=== PATIENT | female | born 1980 | race Asian ===

== ENCOUNTER 2022-02-11 13:54 | Outpatient (REF) | payer OTHER, SELFPAY | END 2022-02-11 13:55 | disposition home or self-care (01) | LOC: HO.US 13:54 | PROVIDERS: Visit Provider Family Medicine | DX: Z13.89 Encounter for screening for other disorder (principal) ==

== ENCOUNTER 2022-02-12 14:06 | Outpatient (REF) | payer OTHER, SELFPAY ==
--- NOTE | ~2022-02-12 | US_ITS ---
EXAMINATION: US PELVIS CLINICAL INFORMATION: Abnormal vaginal bleeding. COMPARISON: None TECHNIQUE: Ultrasound of the pelvis is performed using both transabdominal and transvaginal transducers along with Doppler. Transvaginal imaging is performed due to inadequate visualization transabdominally. FINDINGS: The uterus is anteverted and measures 11 x 5.4 x 5.9 cm in dimension. There are several small hypoechoic lesions in the intramural posterior and left uterine body questionable for small fibroids. Largest measure 1.1 x 0.5 x 1 cm in the posterior uterine body and 1.3 x 0.7 x 0.9 cm in the left uterine body. Endometrial thickness is slightly thickened measuring 1.8 cm. There are nabothian cysts in the cervix. The right ovary is normal-appearing and measures 3.5 x 2 x 2.7 cm. The left ovary measures 2.8 x 1.9 x 1.8 cm. There are several small 2-3 mm punctate echogenic foci in the left ovary. There is a 3.6 x 2.2 x 2 cm minimally complex cyst posterior to the left ovary with some internal echoes. Appearance is questionable for hydrosalpinx. There is a small amount of fluid in the pelvis. US/US pelvic and transvaginal IMPRESSION: Small uterine lesions questionable for fibroids, largest measuring 1 cm. Slightly thickened endometrium measuring 1.8 cm. 3.6 x 2.2 x 2 cm complex left adnexal cyst questionable for hydrosalpinx. Short-term followup exam in several months recommended.
== END 2022-02-12 14:07 | disposition home or self-care (01) ==
LOC: HO.US 14:06
PROVIDERS: PCP Family Medicine; Visit Provider Family Medicine
DX: N93.9 Abnormal uterine and vaginal bleeding, unspecified (principal)
CPT/HCPCS: 76830; 76856

== ENCOUNTER 2022-03-17 19:05 | Emergency (ER) | payer OTHER, SELFPAY ==
--- NOTE | ~2022-03-17 | XR_ITS ---
EXAMINATION: XR KNEE, RIGHT CLINICAL INFORMATION: Fall with pain and swelling COMPARISON: None TECHNIQUE: Four views of the right knee. FINDINGS: No acute fracture or dislocation. No knee joint effusion. Joint spaces are maintained. Minimal marginal osteophyte formation at the medial tibial plateau. No large osteophytes. No osseous lesion. XR/XR knee RT 3V IMPRESSION: 1. No acute osseous injury or knee joint effusion.
[2022-03-17 19:45] VITALS: BP 141/82; PULSE 79; RESP 15; TEMP 37; O2SAT 100; BMI 28.5
--- NOTE | 2022-03-18 00:07 | ED_ITS ---
HPI - Extremity Injury (Lower) General Chief Complaint: Extremity Injury, Lower Stated Complaint: fell right knee severe pain Time Seen by Provider: 03/17/22 20:40 Source: patient Mode of arrival: ambulatory Limitations: no limitations History of Present Illness HPI Narrative: 41-year-old female presenting with knee pain and swelling after falling approximately 8 hours ago. Patient reports she slipped on wood floor, twisting her right knee and falling to the ground. denies impact of knee on the ground. Patient states that she saw her knee cap pop out to the side, and then popped back in. Patient unable to bear weight due to pain after falling. Denies head strike, loss of consciousness, dizziness, any other injuries from the fall. Denies headache, nausea, vomiting, shortness of breath, chest pain, changes in vision, dizziness. Injury: Right: knee Type of Injury: other ( twisting) Place: home Severity: severe Severity scale (1-10): 8 Exacerbating factors: weight bearing and movement Associated symptoms: swelling Related Data Previous Rx's Medication Instructions Recorded ibuprofen 600 mg tablet 600 mg PO Q8H PRN pain #20 tabs 03/18/22 Allergies Allergy/AdvReac Type Severity Reaction Status Date / Time No Known Allergies Allergy Verified 03/17/22 19:47 Review of Systems Review of Systems: Constitutional: No Fever, No Chills ENT/Mouth: No sore throat, No Rhinorrhea, No Swallowing Difficulty Eyes: No Eye Pain, No Swelling, No Redness Cardiovascular: No Chest Pain, No SOB, No Orthopnea, No Edema Respiratory: No Cough, No Sputum, No Wheezing, No dyspnea Gastrointestinal: No Nausea, No Vomiting, No Diarrhea, No abdominal Pain, No Hematochezia, No Melena Genitourinary: No Dysuria, No Urinary Frequency, No Hematuria Musculoskeletal: + pain and swelling of right knee Skin: No Skin Lesions, No rash Neuro: No Weakness, No Numbness, No Dizziness, No Headache Psych: No Anxiety/Panic, No Depression Heme/Lymph: No Bruising, No Lymphadenopathy Endocrine: No Polyuria, No Polydipsia PMFSH Social History Social History Advance Directives: No Advance Directives Information Provided: Yes Physical Exam Vital Signs: Vital Signs: Last Vital Signs Temp 98.6 F 03/17/22 19:45 Pulse 79 03/17/22 19:45 Resp 15 03/17/22 19:45 BP 141/82 H 03/17/22 19:45 Pulse Ox 100 03/17/22 19:45 O2 Del Method 03/17/22 19:45 BMI result Body Mass Index 28.5 Const: Other: Appearance: Alert. Oriented X3. No acute distress. HEENT: normal inspection CVS: Normal heart rate and rhythm. Pulses normal. Respiratory: No respiratory distress. Skin: Skin warm and dry. Normal skin color. Normal skin turgor. No rashes. Extremities: moderate edema of right knee. No warmth, ecchymosis, crepitus, or obvious deformity. limited range of motion due to pain. pain to palpation. 2+ PT and DP pulses Neuro: Oriented X 3. No motor deficit. No sensory deficit. Course Course Course Narrative: 41-year-old female presenting with pain and swelling of the right knee after slipping on a wood floor, twisting her right knee knee, and falling to the ground. patient states that her kneecap popped out and then pop back in. on exam, right knee is moderately edematous, no ecchymosis, no warmth, no redness. Range of motion limited due to pain and swelling. patient neurovascularly intact. XR of knee unremarkable for any acute osseous injury or knee joint effusion. concern for ligamentous versus meniscal injury at this time, possible patellar dislocation that reduced on its own. Patient placed in knee immobilizer and given crutches to use. Patient educated on management of knee injury and return precautions. patient is aware she needs to call Orthopedics for follow-up. Patient stable for discharge at this time. XR knee RT 3V IMPRESSION: ? 1. No acute osseous injury or knee joint effusion. Procedures Orthopedic Splinting/Casting Injury #1: Lower Extremity Immobilizer: knee immobilizer Other Orthopedic Equipment: crutches Discharge Plan Discharge Clinical Impression: Knee injury Patient Disposition: Home, Self-Care Instructions: Crutch Instructions (ED), Swollen Knee Joint (ED), Knee Pain (ED) Additional Instructions: Use crutches to walk. Wear knee immobilizer at all times until evaluated by orthopedics. You may take off the knee immobilizer to shower, avoid standing for long period of time, bending, bearing full weight on injured knee. Take ibuprofen for pain and swelling as needed. Use ice as needed. If you develop new or worsening symptoms call 911 or come back to the ER for further evaluation. Prescriptions: New ibuprofen 600 mg tablet 600 mg PO Q8H PRN (Reason: pain) Qty: 20 0RF Referrals: [facility] [place] Orthopedic Surgeons [Provider Group]
[2022-03-18] MEDS: Ibuprofen 600 MG TABLET PO (00:23)
== END 2022-03-18 00:49 | disposition home or self-care (01) ==
PROVIDERS: Emergency Provider Internal Medicine
DX: S83.91XA Sprain of unspecified site of right knee, initial encounter (principal); W01.0XXA Fall on same level from slipping, tripping and stumbling without subsequent striking against object, initial encounter; Y93.9 Activity, unspecified; Y92.9 Unspecified place or not applicable; Y99.9 Unspecified external cause status
CPT/HCPCS: 29505; 73562; 99283

== ENCOUNTER → 2022-03-29 14:06 | Outpatient (BNVA) | payer OTHER, SELFPAY | PROVIDERS: PCP Family Medicine; Visit Provider Physician Assistant | DX: S83.412A Sprain of medial collateral ligament of left knee, initial encounter (principal) | CPT/HCPCS: 99202 ==

== ENCOUNTER 2022-04-09 09:54 | Outpatient (REF) | payer OTHER, SELFPAY ==
--- NOTE | ~2022-04-09 | MR_ITS ---
EXAMINATION: MR KNEE WITHOUT CONTRAST, RIGHT CLINICAL INFORMATION: Right knee pain and swelling following injury 3 weeks ago. COMPARISON: Right knee radiographs dated 03/17/2022. TECHNIQUE: MRI of the knee without contrast was performed using routine sequences on a high-field scanner. FINDINGS: MENISCI: Medial Meniscus: Intact Lateral Meniscus: Intact LIGAMENTS: Cruciate: Intact Collateral: Intact EXTENSOR MECHANISM: Normal patellofemoral alignment. Patella currently well seated within the trochlea. Attenuation of the medial patellofemoral ligament with diffuse edema consistent with a grade 2 sprain/partial tear. Intact quadriceps and patellar tendons. ARTICULAR CARTILAGE/BONE: Patellofemoral Compartment: Cortical depression at the inferomedial aspect of the patella with underlying marrow edema consistent with an impaction fracture. Associated articular cartilage fissuring. Medial Compartment: Intact articular cartilage. Lateral Compartment: Minimal cortical depression at the anterolateral aspect of the lateral femoral condyle with prominent underlying marrow edema consistent with an impaction fracture. No articular cartilage defect. JOINT FLUID AND BURSAE: Small joint effusion. MR/MR knee RT wo con IMPRESSION: Findings consistent with prior lateral patellar dislocation. Patella currently well seated within the trochlea. Minimally depressed impaction fractures at the inferomedial patella as well as at the lateral aspect of the lateral femoral condyle. No full-thickness articular cartilage defect. Grade 2 sprain/partial tear of the medial patellofemoral ligament. Small joint effusion. Normal patellofemoral alignment. No patella sherrie. TT TG distance within normal limits. No quadriceps or patellar tendon tear.
== END 2022-04-09 09:55 | disposition home or self-care (01) ==
LOC: HO.MRI 09:54
PROVIDERS: Visit Provider Physician Assistant
DX: S43.411A Sprain of right coracohumeral (ligament), initial encounter (principal)
CPT/HCPCS: 73721

== ENCOUNTER → 2022-04-28 10:11 | Outpatient (BNVA) | payer OTHER, SELFPAY | PROVIDERS: PCP Family Medicine; Visit Provider Physician Assistant | DX: S83.006A Unspecified dislocation of unspecified patella, initial encounter (principal) | CPT/HCPCS: 99212 ==

== ENCOUNTER 2022-06-01 10:00 | Outpatient (RCR) | payer OTHER, SELFPAY ==
--- NOTE | 2022-04-13 18:55 | MHC.PT.EP ---
[facility] [place] Office [place] Office [place] Office [address] Mahamed Butler [address] [phone] F: [phone] F: [phone] F: [phone] F: [phone] Physical Therapy Plan of Care Date of Evaluation: Date of Surgery: Diagnosis: MCL sprain R knee. Assessment: Pt is a 41 y/o female referred to PT for eval and treat of R MCL sprain which occurred on 03/17/22 after slip on hardwood floor and twisted her R knee resulting in decreased tolerance for bending her knee, standing and walking, performing transfers, negotiating stairs and performing heavy HH chores secondary to decreased R knee ROM and strength, decreased R hip strength, TTP of medial R knee, gait abnormality and pain. Pt is deemed an appropriate candidate to receive skilled PT in order to address her physical limitations to improve her functional ability. Frequency and Duration: The patient will be seen 2 x/ wk x 6 wks. Short Term Goals: initiate HEP. DC crutch. DC brace. Snf Goals: I with HEP. Pt will ascend and descend 1 fl of stairs with reciprocal fashion w/o AD. initial: non reciprocal with axillary crutch. Pt will be able to walk 2 blocks w/o difficulty. initial moderate difficulty. Improve R knee extension MMT by at least 1/2 mmt grade; initial: 4-/5. Treatment Plan: Modalities to reduce pain, spasms and effusion. Manual therapy to restore motion and function. Therapeutic exercise to improve strength and flexibility. Neuromuscular re-education for posture and balance. Therapeutic activities to return to functional activities of daily living. Electronically signed by: Martin Galeano PT. Please sign and return to therapist. Thank you for your referral.
== END 2022-06-01 11:01 | disposition home or self-care (01) ==
LOC: HO.PTCHIC 10:00
PROVIDERS: PCP Family Medicine; Visit Provider Physician Assistant
DX: S83.411A Sprain of medial collateral ligament of right knee, initial encounter (principal)
CPT/HCPCS: 97110; 97116; 97161

== ENCOUNTER 2022-07-01 14:24 | Outpatient (REF) | payer OTHER, SELFPAY ==
--- NOTE | ~2022-07-01 | US_ITS ---
EXAMINATION: US PELVIS CLINICAL INFORMATION: Left ovarian cyst COMPARISON: Previous exam February 2022 TECHNIQUE: Ultrasound of the pelvis is performed using both transabdominal and transvaginal transducers along with Doppler. Transvaginal imaging is performed due to inadequate visualization transabdominally. FINDINGS: The uterus is anteverted and measures 9 x 5.6 x 6 cm in dimension. Endometrial thickness measures 0.9 cm. There are 2 focal uterine lesions seen probably representing fibroids measuring 8 x 6 x 8 mm and 6 mm in the posterior uterine body. There are small nabothian cysts. The right ovary is seen transabdominally only and is normal-appearing. The right ovary measures 2.9 x 1.9 x 3.8 cm. Left ovary measures 2.9 x 2 x 2.8 cm. There is a mall septated cyst in the left ovary measuring 1.4 x 1.5 x 1.0 cm. There is an adjacent left adnexal cystic or tubular structure questionable for hydrosalpinx. This measures 3.3 x 1.9 x 2 cm. This is similar to previous exam. There is no fluid in the pelvis. US/US pelvic and transvaginal IMPRESSION: Question left hydrosalpinx similar to previous exam. Normal thickness endometrium. Small uterine fibroids.
== END 2022-07-01 14:25 | disposition home or self-care (01) ==
LOC: HO.HMGCX 14:24
PROVIDERS: PCP Family Medicine; Visit Provider Family Medicine
DX: N83.202 Unspecified ovarian cyst, left side (principal)
CPT/HCPCS: 76830; 76856

== ENCOUNTER → 2022-08-23 12:47 | Outpatient (BNVA) | payer OTHER, SELFPAY | PROVIDERS: PCP Family Medicine; Visit Provider Nurse Practitioner Family | DX: K21.9 Gastro-esophageal reflux disease without esophagitis (principal); K59.04 Chronic idiopathic constipation | CPT/HCPCS: 99202 ==

== ENCOUNTER 2022-09-06 08:56 | Outpatient (REF) | payer OTHER, SELFPAY ==
[2022-09-07 15:33] LABS: H Pylori Breath Test Negative (Negative)
== END 2022-09-06 08:57 | disposition home or self-care (01) ==
LOC: CF 08:56
PROVIDERS: PCP Family Medicine; Visit Provider Nurse Practitioner Family
DX: Z11.2 Encounter for screening for other bacterial diseases (principal)
CPT/HCPCS: 36415; 83013; 99211

== ENCOUNTER 2022-09-08 15:14 | Outpatient (REF) | payer OTHER, SELFPAY ==
[2022-09-09 13:50] LABS: CT PCR NOT DETECTED (Not Detect.); NG PCR NOT DETECTED (Not Detect.)
[2022-09-10 10:02] LABS: BV Int Neg Control Negative (Negative); BV Int Pos Control Positive (Positive)
== END 2022-09-08 15:15 | disposition home or self-care (01) ==
LOC: HO.LAB 15:14
PROVIDERS: PCP Family Medicine; Visit Provider Advanced Practice Midwife
DX: N70.11 Chronic salpingitis (principal); R10.2 Pelvic and perineal pain; D25.9 Leiomyoma of uterus, unspecified; Z20.2 Contact with and (suspected) exposure to infections with a predominantly sexual mode of transmission; Z30.09 Encounter for other general counseling and advice on contraception
CPT/HCPCS: 0353U; 87480; 87510; 87660; 96372; 99202; J0696

== ENCOUNTER 2022-09-08 16:06 | Outpatient (REF) | payer OTHER, SELFPAY | END 2022-09-08 16:07 | disposition home or self-care (01) | LOC: HO.LNP 16:06 | PROVIDERS: Visit Provider Advanced Practice Midwife | DX: Z13.89 Encounter for screening for other disorder (principal) ==

== ENCOUNTER → 2022-09-30 08:49 | Outpatient (BNVA) | payer OTHER, SELFPAY | PROVIDERS: PCP Family Medicine; Visit Provider Nurse Practitioner Family | DX: K21.9 Gastro-esophageal reflux disease without esophagitis (principal); K58.1 Irritable bowel syndrome with constipation | CPT/HCPCS: 99212 ==

== ENCOUNTER → 2022-10-04 08:57 | Outpatient (BNVA) | payer OTHER, SELFPAY | PROVIDERS: PCP Family Medicine; Visit Provider Advanced Practice Midwife | DX: N70.11 Chronic salpingitis (principal); R10.2 Pelvic and perineal pain | CPT/HCPCS: 99212 ==

== ENCOUNTER 2022-11-15 08:38 | Outpatient (REF) | payer OTHER, SELFPAY ==
--- NOTE | ~2022-11-15 | MM_ITS ---
EXAMINATION: MM SCREENING DIGITAL BREAST TOMOSYNTHESIS, BILATERAL CLINICAL INFORMATION: Screening. Asymptomatic. No prior breast imaging. Age 42. The lifetime risk of breast cancer based on the Tyrer-Cuzick Model is 9%. COMPARISON: None (current study represents initial baseline exam). TECHNIQUE: Digital breast tomosynthesis is performed in both the craniocaudal and mediolateral oblique views along with computer-aided detection (CAD). Synthesized 2D images are generated from the tomosynthesis. FINDINGS: The breasts are heterogeneously dense, which may obscure small masses (ACR BI-RADS breast composition Category c). There are no significant masses, abnormal calcifications, or other abnormalities. No architectural abnormality. The axilla and skin contours are unremarkable. MM/MM tomosynthesis screening BI IMPRESSION: No mammographic evidence of malignancy. ASSESSMENT: BI-RADS 1: Negative RECOMMENDATION: Routine annual mammography screening. This patient's information was entered into a reminder system with a target due date for their next mammogram.
== END 2022-11-15 08:39 | disposition home or self-care (01) ==
LOC: HO.MAMMO 08:38
PROVIDERS: PCP Family Medicine; Visit Provider Advanced Practice Midwife
DX: Z12.31 Encounter for screening mammogram for malignant neoplasm of breast (principal)
CPT/HCPCS: 77063; 77067

== ENCOUNTER 2022-11-29 09:29 | Day surgery (SDC) | payer OTHER, SELFPAY ==
--- NOTE | 2022-11-25 14:58 | P.CONAN_ITS ---
Documented by User: Constanza Mcclendon NP 11/25/22 14:58 HPI - Anesthesia Eval Consult details Narrative: 42yo F for Upper Endoscopy [facility] Active Problems Active Problems: All Active Problems (Updated 11/25/22 @ 12:55 by Nida Shaw RN) MCL sprain of left knee (Acute) MCL sprain of right knee (Acute) Patellar dislocation (Acute) Fibroid, uterine (Acute) Past Medical History Medical History (Updated 11/25/22 @ 12:55 by Nida Shaw RN) GERD (gastroesophageal reflux disease) IBS (irritable bowel syndrome) Social History Social History Alcohol intake: never Patient Tobacco Use Status: Never used Tobacco Are you DNR?: No Advance Directives: No Advance Directives Information Provided: Yes Nutrition Risks: No Nutritional Risk FDLMP: 4th of this month Current occupational status: employed Current occupation: [employer] Sexual orientation: Straight/Heterosexual Meds Allergies Allergy/AdvReac Type Severity Reaction Status Date / Time No Known Allergies Allergy Verified 10/04/22 09:12 Home Medications Medication Instructions Recorded Confirmed Last Taken Type loratadine 10 mg tablet 10 mg PO DAILY PRN allergies 03/29/22 03/29/22 Unknown History Exam Exam Date and Time: November 25, [id number] Assessment and Plan Assessment Anesthesia Assessment: Chart Reviewed Documented by User: Kody Bassett MD 11/29/22 17:16 [facility] Past Medical History Medical History (Updated 11/25/22 @ 12:55 by Nida Shaw RN) GERD (gastroesophageal reflux disease) IBS (irritable bowel syndrome) Functional capacity: independent ambulation Family History Family history of problems with anesthesia: No Surgical History History of Problems with Anesthesia: No Social History Social History Alcohol intake: never Patient Tobacco Use Status: Never used Tobacco Are you DNR?: No Advance Directives: No Advance Directives Information Provided: Yes Nutrition Risks: No Nutritional Risk FDLMP: 4th of this month Current occupational status: employed 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 Sexual orientation: Straight/Heterosexual Meds Allergies Allergy/AdvReac Type Severity Reaction Status Date / Time No Known Allergies Allergy Verified 10/04/22 09:12 Home Medications Medication Instructions Recorded Confirmed Last Taken Type loratadine 10 mg tablet 10 mg PO DAILY PRN allergies 03/29/22 03/29/22 Unknown History Exam Airway Mallampati Class: III TM Dist: >3cm Neck ROM: Full Loose/Missing/Broken Teeth: Yes Assessment and Plan Assessment Anesthesia Assessment: Anesthesia Plan Discussed Final Anesthetic Review Family History of Problems with Anesthesia: No History of Problems with Anesthesia: No NPO: Yes ASA Class: II Final Preanesthetic Review: Meds/Allgs Chart Reviewed, Consent Obtained/Reviewed and Anes Risks/Benef Reviewed Patient Risk: Intermediate Procedure Risk: Intermediate Anesthetic Plan Anesthetic Plan: MAC: Disposition: Standard PACU
[2022-11-29 10:21] LABS: UPreg QC Valid YES; Urine Pregnancy NEGATIVE (NEGATIVE)
--- NOTE | 2022-11-29 10:25 | MHC.SHP ---
Pre-Procedural Eval Section A Date of Service: 11/29/22 The patient is an INPATIENT: No The History & Physical has been completed within 30 days and I have reviewed it.: No Section B Chief Complaint: epigastric pain, IBS Relevant Family History (Specify if Yes): No Relevant Social History: None Present Medications: see Short Stay Collaborative assessment Medical History: Significant History (GERD, IBS) History of Previous Operations: No relevant previous surgery Allergies: Allergies Allergy/AdvReac Type Severity Reaction Status Date / Time No Known Allergies Allergy Verified 10/04/22 09:12 Review of Systems Sugical H&P ROS: Negative: Constitution, Cardiovascular, Respiratory and Gastrointestinal Exam Surgical H&P Exam: Normal: Heart, Normal: Lungs, Normal: Extremities and Normal: Abdomen Plan Diagnosis/Plan: Unchanged I have reviewed the history and physical and performed a pertinent physical examination on my patient. No changes have occurred unless specified. Time Spent With Patient Time: Total time managing care of this patient today ____ minutes.
[2022-11-29 10:41] VITALS: BMI 30.2
[2022-11-29] MEDS: Lactated Ringers 1,000 ML 100 ML IVCONT (10:44)
[2022-11-29 10:54] VITALS: BP 124/70; PULSE 76; RESP 18; TEMP 36.6; O2SAT 99
--- NOTE | 2022-11-29 11:28 | P.OP_ITS ---
Operative Note Operative Note Date of Service: 11/29/22 Narrative: FLEXIBLE TRANSORAL UPPER GASTROINTESTINAL ENDOSCOPY WITH BIOPSIES Pre-op diagnosis: Epigastric pain, Post-op diagnosis: Gastritis, gastric polyps Endoscopist:? Pablo Weir MD Anesthesia:?MAC Consent: Indications for the procedure and potential complications of bleeding, perforation, reaction to medications and missed diagnosis were discussed with the patient and informed consent was obtained. Instrument: Olympus GIF H 190 mid size upper endoscope Monitoring: Vital signs and clinical assessment, continuous EKG monitoring, Pulse oximetry, Carbon Dioxide monitoring and blood pressure monitoring were done throughout the procedure. Procedure: The patient was placed in the left lateral decubitis position and pre-procedure medications were administered and a bite block was placed. The endoscope was inserted into the mouth and advanced under direct vision to the third part of duodenum. A careful inspection was made as the upper endoscope was withdrawn including a retroflexed examination of the proximal stomach; Findings and interventions are described below. Findings: Larynx: Normal Esophagus: GE junction at 35 cms. No esophagitis or Peter's. Stomach: A few 4-5 mm benign appearing polyps in the gastric body - biopsied. Mild diffuse gastric erythema. Biopsies were obtained from the gastric antrum and body. Grade 2 flap valve on retroflexed examination of the cardia. Duodenum: Normal bulb and descending duodenum. Biopsies were obtained from 3rd part of the duodenum to check for celiac sprue Intervention: Biopsies as noted above Impression and Post Procedure Diagnosis: Endoscopy Findings: STOMACH: Mild diffuse gastritis and benign-appearing gastric polyps DUODENUM: Normal - biopsied to check for celiac sprue Plan: Await pathology results Patient has an appointment on 02/21/23 in the GI Clinic with Kavita Crowder FNP- [facility]. Above findings were reviewed with the patient and Gastric Polyps handout was given in the discharge area Patient admitted to past NSAID use and discontinued 3 months ago. BIOPSIES SHOWED: A.? Small bowel, biopsy:? Small intestinal mucosa within normal limits; negative for celiac disease. B.? Stomach, antrum, biopsy:? Antral-type mucosa within normal limits; no Helicobacter organisms seen. C.? Stomach, body, biopsy:? Oxyntic mucosa with mild chronic inactive inflammation; no Helicobacter organisms seen. D.? Stomach, polyp:? Fundic gland polyp with background mild chronic inactive inflammation; no Helicobacter organisms seen.
[2022-11-29 11:55] VITALS: BP 107/67; PULSE 97; RESP 16; TEMP 36.9; O2SAT 95
[2022-11-29 12:10] VITALS: BP 123/71; PULSE 71; RESP 16; TEMP 36.4; O2SAT 99
== END 2022-11-29 12:45 | disposition home or self-care (01) ==
PROVIDERS: Nurse Practitioner; PCP Family Medicine; Visit Provider Internal Medicine Gastroenterology
PROC: 0DJ08ZZ Inspection of Upper Intestinal Tract, Via Natural or Artificial Opening Endoscopic (ICD-10-PCS; CPT 43235; principal; 2022-11-29 11:10)
DX: R10.13 Epigastric pain (principal); K21.9 Gastro-esophageal reflux disease without esophagitis; K29.50 Unspecified chronic gastritis without bleeding; K31.7 Polyp of stomach and duodenum; K58.9 Irritable bowel syndrome, unspecified; Z79.899 Other long term (current) drug therapy
CPT/HCPCS: 43239; 81025; 88305; 88342

== ENCOUNTER 2022-12-14 08:53 | Outpatient (REF) | payer OTHER, SELFPAY ==
[2022-12-14 14:30] LABS: CT PCR NOT DETECTED (Not Detect.); NG PCR NOT DETECTED (Not Detect.)
[2022-12-16 00:03] LABS: HPV mRNA E6/E7 rflx Not Detected (Not Detected)
== END 2022-12-14 08:54 | disposition home or self-care (01) ==
LOC: HO.LNP 08:53
PROVIDERS: PCP Family Medicine; Visit Provider Advanced Practice Midwife
DX: Z01.419 Encounter for gynecological examination (general) (routine) without abnormal findings (principal); Z11.51 Encounter for screening for human papillomavirus (HPV); R10.2 Pelvic and perineal pain
CPT/HCPCS: 0353U; 87624; 88142

== ENCOUNTER 2022-12-21 14:39 | Outpatient (REF) | payer OTHER, SELFPAY ==
--- NOTE | ~2022-12-21 | US_ITS ---
EXAMINATION: US PELVIS CLINICAL INFORMATION: Pain COMPARISON: Previous pelvic ultrasound February and June 2022 TECHNIQUE: Ultrasound of the pelvis is performed using both transabdominal and transvaginal transducers along with Doppler. Transvaginal imaging is performed due to inadequate visualization transabdominally. FINDINGS: The uterus is anteverted and measures 10 x 4 x 5.5 cm in dimension. There are very small hypoechoic lesions in the posterior uterine body suggestive of fibroids measuring 9 x 6 x 9 mm, 7 x 4 x 5 mm and 13 x 8 x 9 mm. Endometrial thickness is normal measuring 1 cm. Nabothian cysts in the cervix. The right ovary is normal and measures 3.5 x 2.4 x 1.6 cm. Left ovary measures 2.7 x 1.8 x 2.1 cm. There is a cystic structure in the left adnexa with septations. Appearance is questionable for hydrosalpinx. This is similar to previous exam. There is no fluid in the pelvis. US/US pelvic and transvaginal IMPRESSION: Small uterine fibroids. Stable cystic structure in the left adnexa questionable for hydrosalpinx.
== END 2022-12-21 14:40 | disposition home or self-care (01) ==
LOC: HO.US 14:39
PROVIDERS: PCP Family Medicine; Visit Provider Advanced Practice Midwife
DX: R10.2 Pelvic and perineal pain (principal); D25.9 Leiomyoma of uterus, unspecified
CPT/HCPCS: 76830; 76856

== ENCOUNTER 2022-12-24 09:51 | Outpatient (REF) | payer OTHER, SELFPAY ==
[2022-12-25 10:00] LABS: BV Int Neg Control Negative (Negative); BV Int Pos Control Positive (Positive)
== END 2022-12-24 09:52 | disposition home or self-care (01) ==
LOC: HO.LNP 09:51
PROVIDERS: PCP Family Medicine; Visit Provider Advanced Practice Midwife
DX: D25.9 Leiomyoma of uterus, unspecified (principal); N89.8 Other specified noninflammatory disorders of vagina; Z71.2 Person consulting for explanation of examination or test findings
CPT/HCPCS: 87480; 87510; 87660; 99212

== ENCOUNTER 2023-02-21 08:29 | Outpatient (AMB) | payer OTHER, SELFPAY ==
--- NOTE | 2023-02-21 08:50 | A.OFFVIS_ITS ---
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 Patient continues to have epigastric discomfort not doing so well on famotidine alone. Will start her on PPI. Script for pantoprazole 40 mg send. Patient will start half an hour before breakfast rib she can continue taking famotidine at bedtime. Discussed with patient avoiding dietary triggers and late night snacking. Staying upright for minimal 3 hours after meals discussed with patient. I will send patient for upper endoscopy to rule out gastritis, esophagitis, duodenitis, gastric or peptic ulcers, celiac sprue IBS (irritable bowel syndrome) Continue with MiraLax. Low FODMAP diet discussed with patient. List of food recommended as well as list of food to avoid given to patient. I will see patient after upper endoscopy. Patient is agreeable to this plan and verbalizes understanding of instructions. She was given the opportunity to ask questions and all questions answered. ? Thank you for allowing me to participate in her care Plan Medications New pantoprazole take one tablet half an hour before breakfast 40 mg PO DAILY 30 tabs 2RF K21.9 famotidine 40 mg PO BEDTIME 30 tabs 3RF K21.9 Refilled metronidazole no alcohol use, avoid vinegar, salad dressings, pickles 500 mg PO BID 28 tabs 0RF 14 days Discontinued doxycycline hyclate Discontinued Reason: Patient Completed Course 100 mg PO BID 14 days 28 caps 0RF UPPER ENDOSCOPY: Findings: Larynx:? Normal Esophagus: GE junction at 35 cms. No esophagitis or Peter's. Stomach:? A few 4-5 mm benign appearing polyps in the gastric body - biopsied.? Mild diffuse gastric erythema. Biopsies were obtained from the gastric antrum and body. Grade 2 flap valve on retroflexed examination of the cardia. Duodenum: Normal bulb and descending duodenum. Biopsies were obtained from 3rd part of the duodenum to check for celiac sprue Intervention: Biopsies as noted above Impression and Post Procedure Diagnosis: Endoscopy Findings: STOMACH:? Mild diffuse gastritis and benign-appearing gastric polyps DUODENUM:? Normal - biopsied to check for celiac sprue Plan: Await pathology results Patient has an appointment on 02/21/23 in the GI Clinic with Kavita Crowder FNP- [facility]. Above findings were reviewed with the patient and Gastric Polyps handout was given in the discharge area Patient admitted to past NSAID use and discontinued 3 months ago. BIOPSIES SHOWED: A.? Small bowel, biopsy:? Small intestinal mucosa within normal limits; negative for celiac disease. B.? Stomach, antrum, biopsy:? Antral-type mucosa within normal limits; no Helicobacter organisms seen. C.? Stomach, body, biopsy:? Oxyntic mucosa with mild chronic inactive inflammation; no Helicobacter organisms seen. D.? Stomach, polyp:? Fundic gland polyp with background mild chronic inactive inflammation; no Helicobacter organisms seen. TODAY'S VISIT Patient is here today for follow-up and to discuss upper endoscopy results. Patient denies any ill effects from anesthesia or procedure itself. Patient states that she has been feeling well. She stopped taking pantoprazole and famotidine. Patient states that she has no symptoms. Denies any dyspepsia, dysphagia or odynophagia. Denies any epigastric pain postprandially. Able to tolerate food. Upper endoscopy results discussed with patient. No H pylori found. Patient denies any other GI concerning symptoms. 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 Sexual orientation: Straight/Heterosexual Gender identity: Female Review of Systems Const Denies weight gain and Denies weight loss ENT Reports no additional complaints, Denies dysphagia and Denies odynophagia Card Reports no additional complaints Resp Reports no additional complaints GI Denies abdominal pain, Denies belching, Denies melena, Denies bloating, Denies change in bowel habits, Denies dysphagia, Denies excessive flatus, Denies dyspepsia, Denies heartburn, Denies diarrhea, Denies loose stools, Denies nausea, Denies odynophagia and Denies vomiting Musc Reports no additional complaints Neuro Reports no additional complaints Psych Reports no additional complaints Endo Reports no additional complaints Physical Exam Vital Signs: Last Vital Signs Pulse 86 02/21/23 08:51 BP 139/78 02/21/23 08:51 BMI result Body Mass Index 29.9 Const General: healthy appearing, no acute distress and well developed Nutritional Appearance: obese Orientation/consciousness: patient oriented x3 HEENT Head: Yes normal to inspection, Yes normocephalic and Yes atraumatic Face and sinus: Yes normal facial exam Mouth: Normal oral and palatal mucosa present Throat: Yes posterior oropharynx normal, Yes tonsils normal and Yes uvula midl ine Eyes General: appearance normal, both eyes and all related structures Neck Neck: Yes normal visual inspection, Yes full ROM and Yes trachea midline Thyroid: Thyroid normal Resp Effort & Inspection: normal respiratory effort, able to speak in complete sentences, no tracheal deviation and symmetric chest movement Auscultation: clear to auscultation bilaterally Cardio Rate: regular rate Heart sounds: S1 normal heart sound present and S2 normal heart sound present GI Inspection: Yes normal to inspection, No distended and Yes obesity Palpation (GI): Soft to palpation, not firm, nontender and No hepatosplenomegaly present Auscultation: normal bowel sounds General: Yes no CVA tenderness Back/Spine/Pelvis Back: no CVA tenderness Skin General skin exam: elasticity normal, turgor normal and dry skin Neuro General: patient oriented x3 Psych Appearance: grossly normal Mental Status: mental status grossly normal Speech and movement: Normal speech and movement present Assessment & Plan Assessment & Plan (1) GERD (gastroesophageal reflux disease): Code(s): K21.9 - Gastro-esophageal reflux disease without esophagitis Qualifiers: Esophagitis presence: without esophagitis Qualified Code(s): K21.9 - Gastro-esophageal reflux disease without esophagitis Plan: Patient can continue avoiding dietary triggers in late night snacking. Staying upright for minimum 3 hours after meals discussed with patient. Patient to follow-up with our office on as needed basis. She is agreeable to this plan and verbalizes understanding of instructions. She was given the opportunities to ask questions and all questions answered. Thank you for allowing me to participate in her care Coding Level of Care Code Est Pt Level 3 (49098) Diagnoses GERD (gastroesophageal reflux disease) K21.9 Esophagitis presence: without esophagitis Time Spent (min) 30 Comment 20 minutes spent with patient and additional 10 minutes spent reviewing her records
[2023-02-21 08:51] VITALS: BP 139/78; PULSE 86; BMI 29.9
== END 2023-02-21 09:26 | disposition home or self-care (01) ==
PROVIDERS: PCP Family Medicine; Visit Provider Nurse Practitioner Family
DX: K21.9 Gastro-esophageal reflux disease without esophagitis (principal)
CPT/HCPCS: 99213

== ENCOUNTER → 2023-02-21 08:29 | Outpatient (BNVA) | payer OTHER, SELFPAY | PROVIDERS: PCP Family Medicine; Visit Provider Nurse Practitioner Family | DX: K21.9 Gastro-esophageal reflux disease without esophagitis (principal); K58.9 Irritable bowel syndrome, unspecified | CPT/HCPCS: 99212 ==

== ENCOUNTER 2023-06-30 08:49 | Outpatient (REF) | payer OTHER, SELFPAY | END 2023-06-30 08:50 | disposition home or self-care (01) | LOC: HO.HHCX 08:49 | PROVIDERS: Visit Provider Family Medicine | DX: M25.552 Pain in left hip (principal) | CPT/HCPCS: 72190; 73502 ==

== ENCOUNTER 2023-06-30 09:15 | Outpatient (REF) | payer OTHER, SELFPAY ==
[2023-06-30 11:54] LABS: Estimated Average Glucose 97 mg/dL
[2023-06-30 11:59] LABS: Appearance Urine Clear; Color Urine Yellow; Glucose Urine UA Negative (Negative); Leukocyte Esterase Urine Moderate (2+) (Negative); Nitrite Urine Negative (Negative); Specific Gravity - Urine <= 1.005 (1.005-1.025); UMIC TRIGGER UACC YES; Urine Blood Negative (Negative); Urine Ketones Negative (Negative); Urine Protein Negative (Neg-Trace)
[2023-06-30 12:07] LABS: Cholesterol 196 mg/dL (<200); HDL Cholesterol 50 mg/dL (>40); LDL Cholesterol Calculated 124 mg/dL (<100); Triglycerides 111 mg/dL (<150)
[2023-06-30 12:10] LABS: Bacteria Urine None Seen (None Seen); Hyaline Casts Urine 0-2 /LPF (0-2); RBC Urine 0-2 /HPF (0-2); Squamous Epithelial Cell Urine 0-2 /HPF (0-2); UACC Culture Trigger YES
[2023-06-30 12:24] LABS: Alanine Aminotransferase 19 U/L (0-31); Albumin Level 4.3 g/dL (3.5-5.0); Alkaline Phosphatase 72 U/L (39-117); Anion Gap 12 (12-20); Aspartate Amino Transferase 16 U/L (5-31); Bilirubin Total 0.5 mg/dL (0.0-1.0); Blood Urea Nitrogen 10 mg/dL (9-16); Calcium 9.4 mg/dL (8.4-10.2); Carbon Dioxide 25 mmol/L (22-29); Chloride 105 mmol/L (96-108); Estimated Glomerular Filt Rate > 60; Glucose Random 90 mg/dL (60-115); Potassium 3.9 mmol/L (3.3-5.1); Sodium 138 mmol/L (135-145); Total Protein 7.7 g/dL (6.5-8.0)
[2023-06-30 12:46] LABS: Reflex LDLD? No
== END 2023-06-30 09:16 | disposition home or self-care (01) ==
LOC: HO.HHCL 09:15
PROVIDERS: Visit Provider Family Medicine
DX: E66.09 Other obesity due to excess calories (principal); Z68.30 Body mass index [BMI] 30.0-30.9, adult; R30.0 Dysuria; Z83.3 Family history of diabetes mellitus
CPT/HCPCS: 36415; 80053; 80061; 81001; 83036; 84443; 87086

== ENCOUNTER 2023-11-17 08:44 | Outpatient (REF) | payer OTHER, SELFPAY ==
--- NOTE | ~2023-11-17 | MM_ITS ---
EXAMINATION: MM SCREENING DIGITAL BREAST TOMOSYNTHESIS, BILATERAL CLINICAL INFORMATION: Screening. Asymptomatic. COMPARISON: Mammography: This study is compared with prior exams dating back to 2022. TECHNIQUE: Digital breast tomosynthesis is performed in both the craniocaudal and mediolateral oblique views along with computer-aided detection (CAD). Synthesized 2D images are generated from the tomosynthesis. FINDINGS: There are scattered areas of fibroglandular density (ACR BI-RADS breast composition Category b). There are no significant masses, abnormal calcifications, or other abnormalities. MM/MM tomosynthesis screening BI IMPRESSION: No mammographic evidence of malignancy. ASSESSMENT: BI-RADS BI-RADS 1 - Negative RECOMMENDATION: Routine annual mammography screening. 1 year F/U This examination should not preclude the clinical evaluation of a suspicious palpable abnormality. This patient's information was entered into a reminder system with a target due date for their next mammogram.
== END 2023-11-17 08:45 | disposition home or self-care (01) ==
LOC: HO.MAMMO 08:44
PROVIDERS: PCP Family Medicine; Visit Provider Family Medicine
DX: Z12.31 Encounter for screening mammogram for malignant neoplasm of breast (principal)
CPT/HCPCS: 77063; 77067

== ENCOUNTER → 2023-11-17 09:00 | Outpatient (BNV) | payer OTHER, SELFPAY | PROVIDERS: PCP Family Medicine; Visit Provider Radiology Diagnostic Radiology | DX: Z12.31 Encounter for screening mammogram for malignant neoplasm of breast (principal) | CPT/HCPCS: 77063; 77067 ==

== ENCOUNTER 2023-12-21 08:43 | Outpatient (AMB) | payer OTHER, SELFPAY ==
--- NOTE | 2023-12-21 08:45 | MHC.OFFVIS ---
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 Doing well with no concerns. She tries to eat healthy and stays active with exercise. Regular monthly menses. Currently is sexually active. She reports occasional dryness. Not interested in control. Last delivery was 12 years ago. Denies family history of breast, ovarian or colon cancer. Last pap smear 2022, negative. Mammogram: 2023. 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 Sexual orientation: Straight/Heterosexual Gender identity: Female Female Reproductive History Menstrual Age of Menarche: 16 Duration of menses: 3-5 days control method: none Total pregnancies: 3 Full term: 3 Number of Living Children: 3 Date of last pap smear: 12/14/22 (negative) History of abnormal pap smear: No Date of Mammogram: 11/17/23 Review of Systems Const All systems reviewed & are unremarkable except as noted in HPI and below Reports as per HPI Eyes Reports no additional complaints ENT Reports no additional complaints Card Reports no additional complaints Resp Reports no additional complaints GI Reports as per HPI and Reports no additional complaints Reports as per HPI Musc Reports no additional complaints Skin/Breast Reports as per HPI Neuro Reports no additional complaints Psych Reports no additional complaints Endo Reports no additional complaints Ramin/Lymph Reports no additional complaints Aller/Immun Reports no additional complaints Physical Exam Vital Signs: Last Vital Signs BP 104/60 12/21/23 08:49 BMI result Body Mass Index 30.2 Const General: cooperative, healthy appearing, no acute distress, well developed and alert Orientation/consciousness: patient oriented x3 HEENT Head: Yes normal to inspection Eyes General: appearance normal, both eyes and all related structures Neck Neck: Yes normal visual inspection Thyroid: Thyroid normal Chest Chest palpation & inspection: normal inspection of the chest and other (no puckering, dimpling, peau de orange, retraction, discharge, masses) Breast/axilla inspection: normal inspection of the breasts Breast/axilla palpation: normal palpation of the breasts Resp Effort & Inspection: normal respiratory effort GI Inspection: Yes normal to inspection Palpation (GI): Soft to palpation Rectal Exam - Female: deferred General: Yes bladder normal to palpation External Female Exam: normal external appearance and normal appearance of the urethra Speculum Exam - Vagina: normal appearance of the vagina, normal palpation and normal vaginal discharge Speculum Exam - Cervix: normal appearance of the cervix and normal palpation Bimanual exam- vagina & uterus: normal bimanual exam, normal palpation, uterine size normal, bladder normal to palpation, normal palpation and non-tender Bimanual Exam- Adnexa, other: no masses Skin General skin exam: no rashes or lesions noted Rashes: no rashes Neuro General: patient oriented x3 Cognition (Neuro): normal cognition Extrem General: Yes normal to inspection Psych Attitude: cooperative Thought process: Normal thought process present Assessment & Plan Assessment & Plan (1) Encounter for well woman exam with routine gynecological exam: Code(s): Z01.419 - Encounter for gynecological examination (general) (routine) without abnormal findings Category: Medical Plan Discussed: Current recommendations for pap smears per ASCCP guidelines. Breast awareness and periodic breast exams. Maintain a healthy lifestyle including a well balanced diet and routine exercise. Informed on various types of lubricants to use that can be purchased [id number]. Mammogram yearly. Patient verbalizes understanding and agrees to the plan of care. She was given opportunity to ask questions and all questions were answered to the best of my ability. RTO in one year for annual bowl topper examination. This note is constructed using voice recognition software. While every effort has been made to ensure accuracy, final assembly inspector errors may have been included. Coding Level of Care Code Est Pt Prev Care 40-64y(05041) Diagnoses Encounter for well woman exam with routine gynecological exam Z01.419
[2023-12-21 08:49] VITALS: BP 104/60; BMI 30.2
== END 2023-12-21 09:13 | disposition home or self-care (01) ==
PROVIDERS: PCP Family Medicine; Visit Provider Advanced Practice Midwife
DX: Z01.419 Encounter for gynecological examination (general) (routine) without abnormal findings (principal)
CPT/HCPCS: 99396

== ENCOUNTER → 2023-12-21 08:43 | Outpatient (BNVA) | payer OTHER, SELFPAY | PROVIDERS: PCP Family Medicine; Visit Provider Advanced Practice Midwife | DX: Z01.419 Encounter for gynecological examination (general) (routine) without abnormal findings (principal) | CPT/HCPCS: 99396 ==

== ENCOUNTER 2024-05-03 10:43 | Outpatient (REF) | payer OTHER, SELFPAY ==
[2024-05-03 14:19] LABS: Estimated Average Glucose 97 mg/dL; Hemoglobin A1C 89.3673 umol/L; Total Hemoglobin (HGBA1C) 2871.5602 umol/L
[2024-05-03 14:39] LABS: Alanine Aminotransferase 22 U/L (0-31); Albumin Level 4.1 g/dL (3.5-5.0); Alkaline Phosphatase 69 U/L (39-117); Anion Gap 12 (12-20); Aspartate Amino Transferase 27 U/L (5-31); Bilirubin Total 0.4 mg/dL (0.0-1.0); Blood Urea Nitrogen 8 mg/dL (9-16); Calcium 9.4 mg/dL (8.4-10.2); Carbon Dioxide 25 mmol/L (22-29); Chloride 105 mmol/L (96-108); Cholesterol 202 mg/dL (<200); Estimated Glomerular Filt Rate > 60; Glucose Random 84 mg/dL (60-115); HDL Cholesterol 56 mg/dL (>40); LDL Cholesterol Calculated 118 mg/dL (<100); Sodium 138 mmol/L (135-145); Total Protein 7.1 g/dL (6.5-8.0); Triglycerides 141 mg/dL (<150)
[2024-05-03 18:13] LABS: Reflex LDLD? No
== END 2024-05-03 10:44 | disposition home or self-care (01) ==
LOC: HO.HHCL 10:43
PROVIDERS: Visit Provider Family Medicine
DX: E66.3 Overweight (principal)
CPT/HCPCS: 36415; 80053; 80061; 83036

== ENCOUNTER 2024-05-22 09:11 | Outpatient (REF) | payer OTHER, SELFPAY ==
--- NOTE | 2024-05-22 09:15 | EMG_ITS ---
Right median and ulnar motor and sensory studies were performed. Right radial and median and lateral antecubital sensory studies were performed and paraspinal muscles were tested with a needle. IMPRESSION: [id number] right median neuropathy across carpal tunnel. MD CAROLINA Min/YOLANDA / [id number]
== END 2024-05-22 09:12 | disposition home or self-care (01) ==
LOC: HO.NEURO 09:11
PROVIDERS: PCP Family Medicine; Visit Provider Family Medicine
DX: R20.0 Anesthesia of skin (principal)
CPT/HCPCS: 95886; 95910

== ENCOUNTER 2024-12-27 09:29 | Outpatient (REF) | payer OTHER, SELFPAY ==
[2024-12-27 12:57] LABS: Bacterial Vaginosis PCR NEGATIVE (Negative); Candida Group PCR NOT DETECTED (Not Detect); Candida glab krusei PCR NOT DETECTED (Not Detect); Trichomonas vaginalis PCR NOT DETECTED (Not Detect)
== END 2024-12-27 09:30 | disposition home or self-care (01) ==
LOC: HO.LAB 09:29
PROVIDERS: PCP Family Medicine; Visit Provider Advanced Practice Midwife
DX: N89.8 Other specified noninflammatory disorders of vagina (principal)
CPT/HCPCS: 81515

== ENCOUNTER 2024-12-27 09:29 | Outpatient (AMB) | payer OTHER, SELFPAY ==
[2024-12-27 09:34] VITALS: BP 104/60; BMI 28.3
--- NOTE | 2024-12-27 09:34 | A.OFFVIS_ITS ---
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 Doing well with no college intern concerns: has occasional external itching. Regular monthly menses. Currently is sexually active with , using natural plan family planning, declines control. She tries to eat healthy and stays active with exercise. Denies family history of breast, ovarian or colon cancer. Last pap smear 2022, negative. Mammogram: 2023. 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 Sexual orientation: Straight/Heterosexual Gender identity: Female Female Reproductive History Menstrual Age of Menarche: 16 Duration of menses: 3-5 days Date of last menstrual period: 12/02/24 control method: none Total pregnancies: 3 Full term: 3 Number of Living Children: 3 Date of last pap smear: 12/14/22 (neg pap and hpv) Date of Mammogram: 11/17/23 (Birad 1) Review of Systems Const All systems reviewed & are unremarkable except as noted in HPI and below Reports as per HPI Eyes Reports no additional complaints ENT Reports no additional complaints Card Reports no additional complaints Resp Reports no additional complaints GI Reports as per HPI and Reports no additional complaints Reports as per HPI Musc Reports no additional complaints Skin/Breast Reports as per HPI Neuro Reports no additional complaints Psych Reports no additional complaints Endo Reports no additional complaints Ramin/Lymph Reports no additional complaints Aller/Immun Reports no additional complaints Physical Exam Vital Signs: Last Vital Signs BP 104/60 12/27/24 09:34 BMI result Body Mass Index 28.3 Const General: cooperative, healthy appearing, no acute distress, well developed and alert Orientation/consciousness: patient oriented x3 HEENT Head: Yes normal to inspection Eyes General: appearance normal, both eyes and all related structures Neck Neck: Yes normal visual inspection Thyroid: Thyroid normal Chest Chest palpation & inspection: normal inspection of the chest and other (no puckering, dimpling, peau de orange, retraction, discharge, masses) Breast/axilla inspection: normal inspection of the breasts Breast/axilla palpation: normal palpation of the breasts Resp Effort & Inspection: normal respiratory effort GI Inspection: Yes normal to inspection Palpation (GI): Soft to palpation Rectal Exam - Female: deferred General: Yes bladder normal to palpation External Female Exam: normal external appearance and normal appearance of the urethra Speculum Exam - Vagina: normal appearance of the vagina, normal palpation and abnormal vaginal discharge (Yellow green) Speculum Exam - Cervix: normal appearance of the cervix and normal palpation Bimanual exam- vagina & uterus: normal bimanual exam, normal palpation, uterine size normal, bladder normal to palpation, normal palpation and non-tender Bimanual Exam- Adnexa, other: no masses Skin General skin exam: no rashes or lesions noted Rashes: no rashes Neuro General: patient oriented x3 Cognition (Neuro): normal cognition Extrem General: Yes normal to inspection Psych Attitude: cooperative Thought process: Normal thought process present Assessment & Plan Assessment & Plan (1) Encounter for well woman exam with routine gynecological exam: Code(s): Z01.419 - Encounter for gynecological examination (general) (routine) without abnormal findings Category: Medical Plan: Discussed: Current recommendations for pap smears per ASCCP guidelines. Breast awareness and periodic breast exams. Mammogram yearly. Maintain a healthy lifestyle including a well balanced diet and routine exercise. Monitor menstrual cycles, report any unscheduled bleeding, bleeding episodes <24 days apart or heavy/prolonged menstrual bleeding. Call the office for a follow u p for any concerns. Patient verbalizes understanding and agrees to the plan of care. She was given opportunity to ask questions and all questions were answered to the best of my ability. RTO in one year for annual college intern examination. This note is constructed using voice recognition software. While every effort has been made to ensure accuracy, water reclamation systems operator errors may have been included. (2) Vaginal itching: Code(s): N89.8 - Other specified noninflammatory disorders of vagina Plan BV panel obtained await results for final plan of care. The patient expressed understanding and agreement with the plan of care. All of her questions and concerns were addressed to the best of my ability. This note is constructed using voice recognition software. While every effort has been made to ensure accuracy, water reclamation systems operator errors may have been included. Orders: Orders Bacterial Vaginosis Panel Today N89.8 - Other specified noninflammatory disorders of vagina Coding Level of Care Code Est Pt Prev Care 40-64y(25183) Diagnoses Encounter for well woman exam with routine gynecological exam Z01.419 Vaginal itching N89.8
--- OUTSIDE RECORDS SUMMARY | 2024-12-27 10:16 | XMS_ITS | Clinical Summary ---
Author Organization [employer] Address [address] [place] [address] [address] [place] [address] Care Team Providers Care Registered Medical Assistant Name Role Phone Elen Mckeon MD Primary Care Provider [phone] Allergies No known active allergies Medications acetaminophen (Tylenol) 500 MG tablet take 2 tablet by oral route every 8 hours as needed for pain / fever. 2 Active fluticasone (Flonase) 50 MCG/ACT nasal spray spray 1 spray by intranasal route every day in each nostril 0 Active loratadine (Claritin) 10 MG tabletIndication s:Allergic rhinitis due to other allergic trigger, unspecified seasonality take 1 tablet by oral route once daily as needed for allergy symptoms Strength: 10 mg 30 tablet 3 2 Active Active Problems Problem Noted Date Diagnosed Date Chronic midline back pain 07/16/2024 Overweight (BMI 25.0-29.9) 05/04/2024 Assessment & Plan (05/04/2024 5:31 AM EDT): - she has lost weight intentionally by increasing physical activity - continue working on lifestyle modifications - agreed to focus on physical activity, adequate sleep, and healthy diet, rather than weight / numerical value Carpal tunnel syndrome 05/03/2024 Assessment & Plan (07/21/2024 5:22 AM EST): - right-hand dominant - NCT/EMG in May 2024 showed mild-moderate right medial nerve neuropathy / carpal tunnel syndrome - discussed about treatment options. Patient prefers a conservative management. - recommended wrist brace Assessment & Plan (05/03/2024 10:01 AM EDT): - possible carpal tunnel syndrome - no sign of trigger finger - will evaluate with nerve conduction test - recommended wrist brace MCL sprain of right knee 01/10/2024 Fibroid, uterine 06/22/2023 06/22/2023 Assessment & Plan (05/03/2024 10:02 AM EDT): - Evaluated by [facility] for chronic pelvic pain and hydrosalpinx seen on US in Jun 2022. - Last US in December 2022 showed: Small uterine fibroids. Stable cystic structure in the left adnexa questionable for hydrosalpinx. - Given reassurance Assessment & Plan (07/04/2023 6:04 AM EST): - Evaluated by [facility] for chronic pelvic pain and hydrosalpinx seen on US in Jun 2022. - Last US in December 2022 showed: Small uterine fibroids. Stable cystic structure in the left adnexa questionable for hydrosalpinx. - Given reassurance Gastroesophageal reflux disease 06/25/2022 Assessment & Plan (07/21/2024 5:23 AM EST): - s/p EGD in November [address] Weir - post-op Dx: gastritis and gastric polyp - Biopsies showed: no Helicobacter organism, negative for celiac disease, fundic gland polyp with background mild chronic inactive inflammation. - avoid NSAIDs Assessment & Plan (05/03/2024 10:01 AM EDT): - s/p EGD in November [address] Weir - post-op Dx: gastritis and gastric polyp - Biopsies showed: no Helicobacter organism, negative for celiac disease, fundic gland polyp with background mild chronic inactive inflammation. - avoid NSAIDs Assessment & Plan (07/04/2023 5:59 AM EST): - s/p EGD in November [address] Weir - post-op Dx: gastritis and gastric polyp - Biopsies showed: no Helicobacter organism, negative for celiac disease, fundic gland polyp with background mild chronic inactive inflammation. - avoid NSAIDs Ovarian cyst 06/20/2022 Overview (06/20/2022): US on 02/12/22 showed small uterine fibroids, slightly thickened endometrium, and complex left adnexal cyst Scheduled for a follow-up US in this month Assessment & Plan (07/04/2023 6:06 AM EST): - evaluated by [facility] - had 3 US studies which show the stability of left adnexal cyst and hydrosalpinx Assessment & Plan (06/25/2022 10:38 AM EST): US on 02/12/22 showed small uterine fibroids, slightly thickened endometrium, and complex left adnexal cyst Scheduled for a follow-up US in this month Patellar dislocation 03/17/2022 Overview (06/20/2022): Right Assessment & Plan (07/04/2023 5:55 AM EST): - Right knee patellar dislocation in Mar 2022 - MRI showed intact menisci and ligaments - Completed physical therapy Assessment & Plan (06/25/2022 10:38 AM EST): Continue home exercise program and use brace as needed Allergic rhinitis 11/03/2015 Overview (06/25/2022): Continue loratadine and Flonase Consider adding Singulair Consider allergy testing and immunotherapy Assessment & Plan (05/03/2024 10:02 AM EDT): - previously prescribed loratadine, fluticasone nasal - patient declines any mediation at this time Assessment & Plan (07/04/2023 6:07 AM EST): - previously prescribed loratadine, fluticasone nasal - patient declines any mediation at this time Immunizations Immunization Administration Dates Next Due Hep A, Adult 07/11/2008,01/30/2007 Hep B, adult 04/25/2007,10/04/2006,09/06/2006 IPV 01/30/2007,09/06/2006 Influenza injectable quadriv alent preservative free 06/28/2023,04/01/2022 Influenza, seasonal, injecta ble, preservative free 05/03/2024 Pfizer Covid-19 Vaccine 12+ 11/20/2020, Tdap 11/04/2016 Family History Medical History Relation Name Comments Allergic rhinitis Daughter Asthma Daughter Eczema Daughter Hypertension Maternal Grandmother Stroke Maternal Grandmother Allergic rhinitis Son Eczema Son Relation Name Status Comments Daughter Maternal Grandmother Son Social History Tobacco Use Types Packs/Day Years Used Date Smoking Tobacco: Never Tobacco Cessation:Counseling Given: Not Answered Depression Answer Date Recorded Patient Health Questionnaire-9 Score 0 07/16/2024 Patient Health Questionnaire-9 Score 0 07/16/2024 Last PHQ-9: Questionnaire Data Not on file 0 07/16/2024 Housing Stability Answer Date Recorded What is your housing situation today? I have mitzy clay 06/20/[address] you li ve. Do you have problems with any of the following? None of the above 06/20/2023 Food Insecurity Answer Date Recorded Within the past 12 months, y ou worried that your food would run out before you got money to buy more: Never True 04/29/2023 Within the past 12 months,th e food you bought just didn't last and you didn't have enough money to get more: Never True Transportation Answer Date Recorded In the past 12 months, has l ack of transportation kept you from medical appts, meetings, work or from getting things needed for daily living? No 04/29/2023 Utilities Answer Date Recorded In the past 12 months, has t he electric, gas, oil or water company threatened to shut off services in your home? No 04/29/2023 Depression Answer Date Recorded Patient Health Questionnaire-2 Score 0 07/16/2024 Internet Access Answer Date Recorded Internet Access Q1 Yes 07/03/2024 Internet Access Q2 Not on file 07/03/2024 Comments Unknown Sex and Gender Information Value Date Recorded Sex Assigned at Female 05/10/2022 10:27 AM EDT Legal Sex Female 10:27 AM EDT Gender Identity Choose not to disclose 3 1:27 PM EST Sexual Orientation Choose not to disclose 2022 1:27 PM EST Last Filed Vital Signs Vital Sign Reading Time Taken Comments Blood Pressure 106/68 07/16/2024 9:54 AM EST Pulse 73 07/16/2024 9:54 AM EST Temperature 36.1 C (96.9 F) 07/16/2024 9:54 AM EST Respiratory Rate 15 07/16/2024 9:54 AM EST Oxygen Saturation 99% 07/16/2024 9:54 AM EST Inhaled Oxygen Concentration - - Weight 70.9 kg (156 lb 3.2 oz) 07/16/2024 9:54 A M EST Height 156 cm (5' 1.42 ) 07/16/2024 9:54 AM EST Body Mass Index 29.11 07/16/2024 9:54 AM EST Plan of Treatment Health Maintenance Due Date Last Done Comments Disability Screening 1980 Family Planning (PISQ) 1997 IPV Vaccines (3 of 3 - Adult catch-up series) 08/02/2007 01/30/2007, 09/06/2006 COVID-19 Vaccine (3 - 2023-2 5 season) 2024 11/20/2020, 10/25/2020 SDOH Screening 07/03/2025 07/03/2024 Alcohol/Substance Use Screening 07/16/2025 07/16/2024 Depression Screening 07/16/2025 07/16/2024, 07/16/2024 Tobacco Screening 07/21/2025 07/21/2024 Mammogram 11/16/2025 11/17/2023, 11/15/2022 Pap Smear 12/14/2025 12/14/2022, 12/07/2018 DTaP/Tdap/Td Vaccines (2 - T d or Tdap) 11/04/2026 11/04/2016 Cervical Cancer Screening 12/15/2027 HPV/Cotest 12/15/2027 12/14/2022, 12/07/2018 Zoster Vaccines (1 of 2) 2032 RSV Patients and Patients Aged 60 years or older (1 - 1-dose 75+ series) 2057 Hepatitis B Vaccines Completed 04/25/2007, 10/04/2006, 09/06/2006 Hepatitis A Vaccines Aged Out 07/11/2008, 01/30/2007 No longer eligible based on patient's age to complete this topic Influenza Vaccine Completed 05/03/2024, 06/28/2023, 04/01/2022 HIB Vaccines Aged Out No longer eligi ble based on patient's age to complete this topic HIV Screening Discontinued HPV Vaccines Aged Out No longer eligi ble based on patient's age to complete this topic Hepatitis C Screening Discontinued Meningococcal B Vaccine Aged Out No l onger eligible based on patient's age to complete this topic Meningococcal Vaccine Aged Out No jc katie eligible based on patient's age to complete this topic Pneumococcal Vaccine: Pediatrics (0 to 5 Years) and At-Risk Patients (6 to 49) Years Aged Out No longer eligible based on patient's age to complete this topic RSV under 20 months Aged Out No longe r eligible based on patient's age to complete this topic Rotavirus Vaccines Aged Out No longer eligible based on patient's age to complete this topic Procedures Procedure Name Priority Date/Time Associated Diagnosis Comments BI MAMMOGRAM SCREENING TOMOSYNTHESIS BILATERAL Routine 11/17/2023 9:00 AM EDT HPV MRNA E6/E7 REFLEX TO HPV 16, 18/45 Routine 12/14/2022 9:36 AM EDT PAP SMEAR Routine 12/14/2022 9:36 AM EDT from Last 3 Months or Most Recently Relevant to Health Maintenance Results * BI Mammogram Screening Tomosynthesis Bilateral (11/17/2023 9:00 AM EDT) Anatomical Region Laterality Modality Breast Bilateral Mammography 11/17/2023 9:00 AM EDT Narrative 12/16/2023 9:52 AM EDT [facility] [address] [place] [address] Mammography Report Signed Patient: Jose Rock MR#: [id number] : 1980 Acct:[id number] Age/Sex: 43 / F ADM Date: 11/17/23 Loc: [place] Attending Dr: Elen Mckeon MD Ordering Physician: Elen Mckeon MD Results: 1Negative Date of Service: 11/17/23 Follow Up: 1 Year From Orig inal Mammogram Procedure(s): MM tomosynthesis screening BI Accession Number(s): [id number] cc: Elen Mckeon MD EXAMINATION: MM SCREENING DIGITAL BREAST TOMOSYNTHESIS, BILATERAL CLINICAL INFORMATION: Screening. Asymptomatic. COMPARISON: Mammography: This study is compared with prior exams dating back to 2022. TECHNIQUE: Digital breast tomosynthesis is performed in both the craniocaudal and mediolateral oblique views along with computer-aided detection (CAD). Synthesized 2D images are generated from the tomosynthesis. FINDINGS: There are scattered areas of fibroglandular density (ACR BI-RADS breast composition Category b). There are no significant masses, abnormal calcifications, or other abnormalities. MM/MM tomosynthesis screening BI IMPRESSION: No mammographic evidence of malignancy. ASSESSMENT: BI-RADS BI-RADS 1 - Negative RECOMMENDATION: Routine annual mammography screening. 1 year F/U This examination should not preclude the clinical evaluation of a suspicious palpable abnormality. This patient's information was entered into a reminder system with a target due date for their next mammogram. Dictated By: Priya Wagner MD Signed By: <Electronically signed by Priya Wagner MD in OV> 12/16/23 0949 DD/ 0900 TD/TT: Collar Stay Fuser Tender: Procedure Note Donotuseinterpreter, Image - 12/16/2023 [facility] [address] [place] [address] Mammography Report Signed Patient: Nile Rock#: [id number] : 1980Acct:[id number] Age/Sex: 43 / FADM Date: 11/17/23 Loc: [place] Attending Dr: Elen Mckeon MD Ordering Physician: Elen Mckeon MDResults: 1Negative Date of Service: 11/17/23Follow Up: 1 Year From Orig inal Mammogram Procedure(s): MM tomosynthesis screening BI Accession Number(s): [id number] cc: Elen Mckeon MD EXAMINATION: MM SCREENING DIGITAL BREAST TOMOSYNTHESIS, BILATERAL CLINICAL INFORMATION: Screening. Asymptomatic. COMPARISON: Mammography: This study is compared with prior exams dating back to 2022. TECHNIQUE: Digital breast tomosynthesis is performed in both the craniocaudal and mediolateral oblique views along with computer-aided detection (CAD). Synthesized 2D images are generated from the tomosynthesis. FINDINGS: There are scattered areas of fibroglandular density (ACR BI-RADS breast composition Category b). There are no significant masses, abnormal calcifications, or other abnormalities. MM/MM tomosynthesis screening BI IMPRESSION: No mammographic evidence of malignancy. ASSESSMENT: BI-RADS BI-RADS 1 - Negative RECOMMENDATION: Routine annual mammography screening. 1 year F/U This examination should not preclude the clinical evaluation of a suspicious palpable abnormality. This patient's information was entered into a reminder system with a target due date for their next mammogram. Dictated By: Priya Wagner MD Signed By: <Electronically signed by Priya Wagner MD in OV> 12/16/2349 DD/ 09 TD/TT: Collar Stay Fuser Tender: us Elen Mckeon MD IM BI PROCEDURES Edited Result - Final * HPV mRNA E6/E7 w/Reflex to HPV Genotypes 16, 18/45 (12/14/2022 9:36 AM EDT) HPV nRNA E6/E7 Not Detected Not Detected [facility] Comment:Methodology: Transcr iption-Mediated AmplificationThis assay detects E6/E7 viral messenger RNA (mRNA) from 14high-risk HPV types (16,18,31,33,35,39,45,51,52,56,58,59,66,68).Cervical sources are required for HPV testing.If a vaginal source from a patient who has had atotal hysterectomy with removal of cervix wassubmitted, please contact the testing laboratoryfor alternative testing options.For additional information, please refer tohttp://education.miDrive/faq/NLC221j5(This link if provided for information/educational purposes only.)THIS TEST WAS PERFORMED AT:[employer] [place] [phone] ALCALA MD HPV mRNA E6/E7 TNP [facility] HPV 16 RNA TNP [facility] HPV 18/45 RNA TNP [facility] 12/14/2022 9:36 AM EDT 12/14/2022 12:15 PM EDT [facility] External Provider LAB CYT OLOGY ORDERABLES Final Result [facility] [address] [place] [phone] * Pap Smear (12/14/2022 9:36 AM EDT) 12/14/2022 9:36 AM EDT 12/14/2022 12:15 PM EDT Narrative [facility] - 01/07/2023 8:48 AM EDT ----- ------- Name: Jose Rock Age/Sex: 42/F : 1980 Unit#: [id number] Attend Dr: Tiki Gama CNM Re12/14/22 Status: MARIOLA REF Location: HO.LNP Disch: ----- ------- SPEC : [id number] RECD: 12/14/22-1215 STATUS: ANA OROZCO NUM: [id number] JHOAN: 12/14/2236 [facility] [address]: Tiki Gama [facility] ENTERED: 12/14/22-1256 SP TYPE: Pap Smr OTHR DR: Elen Mckeon MD ORDERED: Pap Smear Interpretation Satisfactory for evaluation. Blood. Mild inflammation. Negative for intraepithelial lesion or malignancy. HPV mRNA E6/E7: NOT DETECTED This assay detects E6/E7 viral messenger RNA (mRNA) from 14 high-risk HPV types (16, 18, 31, 33, 35, 39, 45, 51, 52, 56, 58, 59, 66, 68) HPV testing performed by [employer], [place], [place]. See reference laboratory pion of the EMR for entire report. Clinical Information LMP: 12/11/22 Previous PAP test: 2019, WNL Material Received ThinPrep-Cervical Copies To: Tiki Gama [address] [address] Elen Mckeon MD [address] [place] [address] ----- ------- Signed (signature on file) MARY Vasquez (ASCP) 01/07/23 0848 ----- ------- END OF REPORT [facility] External Provider LAB CYT JOANNE ORDERABLES Final Result [facility] [address] [place] [address] [phone] from Last 3 Months or Most Recently Relevant to Health Maintenance Insurance [facility] Care Teams Registered Medical Assistant Relationship Specialty Start Date End Date Elen Mckeon MD [address] [place] [phone] PCP - General Family Medicine 10/17/15
== END 2024-12-27 09:59 | disposition home or self-care (01) ==
LOC: HO.HWS 09:29
PROVIDERS: PCP Family Medicine; Visit Provider Advanced Practice Midwife
DX: Z01.419 Encounter for gynecological examination (general) (routine) without abnormal findings (principal); N89.8 Other specified noninflammatory disorders of vagina
CPT/HCPCS: 99396; 99459

== ENCOUNTER 2025-02-18 09:32 | Outpatient (REF) | payer OTHER, SELFPAY ==
--- OUTSIDE RECORDS SUMMARY | 2025-02-18 10:01 | XMS_ITS | Clinical Summary ---
Author Organization [employer] Address [address] [place] [address] [address] [place] [address] Care Team Providers Care Clinical Staff Rn Name Role Phone Elen Mckeon MD Primary Care Provider [phone] Allergies No known active allergies Medications acetaminophen [...] (05/03/2024 10:02 AM EDT): - Evaluated by [facility] for chronic pelvic pain and hydrosalpinx seen on US in Jun 2022. - Last US in December 2022 showed: Small uterine fibroids. Stable cystic structure in the left adnexa questionable for hydrosalpinx. - Given reassurance Assessment & Plan (07/04/2023 6:04 AM EST): - Evaluated by [facility] for chronic pelvic pain and hydrosalpinx seen [...] (07/04/2023 6:06 AM EST): - evaluated by [facility] - had 3 US studies which show [...] patient declines any mediation at this time Encounters Date Type Department Care Team Description 12/27/2024 Orders Only GENERIC EXTERNAL DATA DEPARTMENT Provider, Generic External Data from Last 3 Months Immunizations Immunization Administration Dates Next Due Hep [...] EDT Gender Identity Choose not to disclose 1:27 PM EST Sexual Orientation Choose not [...] Disability Screening 1980 Family Planning (PISQ) 1997 HPV Vaccines (1 - 3-dose series) 1997 IPV Vaccines (3 of 3 - Adult catch-up series) 08/02/2007 01/30/2007, 09/06/2006 COVID-19 Vaccine (3 - 2023-2 5 season) 2024 11/20/2020, 10/25/2020 Influenza Vaccine (#1) 2025 , 06/28/2023, 04/01/2022 SDOH Screening 07/03/2025 07/03/2024 Alcohol/Substance Use Screening [...] on patient's age to complete this topic HIB Vaccines Aged Out No longer eligi ble based on patient's age to complete this topic HIV Screening Discontinued Hepatitis C Screening Discontinued Meningococcal B Vaccine [...] Procedure Name Priority Date/Time Associated Diagnosis Comments BACTERIAL VAGINOSIS PANEL Routine 12/27/2024 9:29 AM EDT BI MAMMOGRAM SCREENING TOMOSYNTHESIS BILATERAL Routine 11/17/2023 9:00 AM EDT HPV MRNA E6/E7 REFLEX TO HPV 16, 18/45 Routine 12/14/2022 9:36 AM EDT PAP SMEAR Routine 12/14/2022 9:36 AM EDT from Last 3 Months or Most Recently Relevant to Health Maintenance Results * Bacterial Vaginosis (12/27/2024 9:29 AM EDT) TRICHOMONAS VAGINALIS DETECTION BY PCR NOT DETECTED Not Detect [facility] BACTERIAL VAGINOSIS DETECTION BY PCR NEGATIVE Negative [facility] Comment:The BV organism targ ets of the Xpert Xpress MVP test can becommensal in women; Xpert Xpress MVP positive results forbacterial vaginosis should be considered in conjunction withother clinical and patient information to determine thedisease status. Organisms that are not detected by the XpertXpress MVP test have also been reported to be associatedwith BV and aerobic vaginitis.The Xpert Xpress MVP test performance has not been evaluatedin patients under the age of 14. VIVIANA GROUP DETECTION BY PCR NOT DETECTED Not Detect [facility] Viviana glab krusei PCR NOT DETECTED Not Detect [facility] 12/27/2024 9:29 AM EDT 12/27/2024 11:14 AM EDT us Generic External Data Provider LAB MICROBIOLOGY - GENERAL ORDERABLES Final Result Performing Organization Address City/State/[facility] Co de Phone Number [facility] [address] [place] [phone] * BI Mammogram Screening Tomosynthesis Bilateral (11/17/2023 9:00 AM EDT) Anatomical Region Laterality Modality Breast Bilateral Mammography 11/17/2023 9:00 AM EDT Narrative 12/16/2023 9:52 AM EDT [address] [place] [address] Mammography Report Signed Patient: Jose Rock MR#: [id number] : 1980 Acct:[id number] Age/Sex: 43 / F ADM Date: 11/17/23 Loc: .MAMMO Attending Dr: Elen Mckeon MD Ordering Physician: Elen Mckeon MD Results: 1Negative Date of Service: 11/17/23 Follow Up: 1 Year From [facility] Mammogram Procedure(s): MM tomosynthesis screening BI Accession Number(s): [id number] cc: Elen Mckeon MD EXAMINATION: MM SCREENING [...] signed by Priya Wagner MD in OV> 12/16/23948 DD/ 9 TD/TT: Photographic Reproduction Technician: Procedure Note Donotuseinterpreter, Image - 12/16/2023 [facility] [address] [place] [address] Mammography Report Signed Patient: Nile Rock#: [id number] : 1980Acct:[id number] Age/Sex: 43 / FADM Date: 11/17/23 Loc: [facility] Attending Dr: Elen Mckeon MD Ordering Physician: Elen Mckeon MDResults: 1Negative Date of Service: 11/17/23Follow Up: 1 Year From [facility] Mammogram Procedure(s): MM tomosynthesis screening BI Accession Number(s): [id number] cc: Elen Mckeon MD EXAMINATION: MM SCREENING [...] in OV> 12/16/23 0949 DD/ 0900 TD/TT: Photographic Reproduction Technician: Elen Mckeon MD IMG BI PROCEDURES Edited Result - Final * HPV mRNA E6/E7 w/Reflex to HPV Genotypes 16, 18/45 (12/14/2022 9:36 AM EDT) HPV nRNA E6/E7 Not Detected Not Detected [facility] Comment:Methodology: Transcr iption-Mediated AmplificationThis assay detects E6/E7 viral messenger RNA (mRNA) from 14high-risk HPV types (16,18,31,33,35,39,45,51,52,56,58,59,66,68).Cervical sources are required for HPV testing.If a vaginal source from a patient who has had atotal hysterectomy with removal of cervix wassubmitted, please contact the testing laboratoryfor alternative testing options.For additional information, please refer tohttp://education.SafariDesk/faq/NGX885b3(This link if provided for information/educational purposes only.)THIS TEST WAS PERFORMED AT:[employer] [place] [phone] ALCALA MD HPV mRNA E6/E7 TNP [facility] HPV 16 RNA TNP [facility] HPV 18/45 RNA [facility] 12/14/2022 9:36 AM EDT 12/14/2022 12:15 PM EDT [facility] External Provider LAB CYT OLOGY ORDERABLES Final Result [facility] [address] [place] [phone] * Pap Smear (12/14/2022 9:36 AM EDT) 12/14/2022 9:36 AM EDT 12/14/2022 12:15 PM EDT [facility] - 01/07/2023 8:48 AM EDT ----- ------- Name: Jose Rock Age/Sex: 42/F : 1980 Unit#: [id number] Attend Dr: Tiki Gama CNM Re12/14/22 Status: DEP REF Location: HO.P Disch: ----- ------- SPEC : [id number] RECD: 12/14/22-1215 STATUS: ANA OROZCO NUM: [id number] JHOAN: 12/14/22[address] [facility] [address]: Tiki Gama CNM ENTERED: 12/14/22-125 SP TYPE: Pap Smr OTHR DR: Elen Mckeon MD ORDERED: Pap Smear Interpretation Satisfactory for evaluation. Blood. Mild inflammation. Negative for intraepithelial lesion or malignancy. HPV mRNA E6/E7: NOT DETECTED This assay detects E6/E7 viral messenger RNA (mRNA) from 14 high-risk HPV types (16, 18, 31, 33, 35, 39, 45, 51, 52, 56, 58, 59, 66, 68) HPV testing performed by [employer], [place], [place]. See reference laboratory pion of the EMR for entire report. Clinical Information LMP: 12/11/22 Previous PAP test: 2019, WNL Material Received ThinPrep-Cervical Copies To: Tiki Gama [address] [place] [address] [place] [phone] Elen Mckeon MD [address] [place] [address] ----- ------- Signed (signature on file) MARY Vasquez ([facility]) 01/07/23 0848 ----- ------- END OF REPORT [facility] External Provider LAB [facility] ORDERABLES Final Result [facility] [address] [place] [address] [phone] from Last 3 Months or Most Recently Relevant to Health Maintenance Insurance [facility] Care Teams Clinical Staff Rn Relationship Specialty Start Date End Date Elen Mckeon MD [address] [place] [phone] PCP - General Family Medicine 10/17/15
== END 2025-02-18 09:33 | disposition home or self-care (01) ==
LOC: HO.MAMMO 09:32
PROVIDERS: PCP Family Medicine; Visit Provider Family Medicine
DX: Z12.31 Encounter for screening mammogram for malignant neoplasm of breast (principal)
CPT/HCPCS: 77063; 77067

== ENCOUNTER → 2025-02-18 09:45 | Outpatient (BNV) | payer OTHER, SELFPAY | PROVIDERS: PCP Family Medicine; Visit Provider Internal Medicine | DX: Z12.31 Encounter for screening mammogram for malignant neoplasm of breast (principal) | CPT/HCPCS: 77063; 77067 ==

== ENCOUNTER 2025-03-08 08:45 | Outpatient (REF) | payer OTHER, SELFPAY ==
--- NOTE | ~2025-03-08 | US_ITS ---
EXAMINATIONS: 1. MM DIAGNOSTIC DIGITAL BREAST TOMOSYNTHESIS, LEFT 2. Targeted ultrasound of the left breast CLINICAL INFORMATION: Callback from screening for left breast asymmetry in the inferior breast on the MLO view. COMPARISON: Comparison made to multiple prior, most recent February 18, 2025, and most remote November 15, 2022. TECHNIQUE: Digital breast tomosynthesis is performed in full-field ML 90 degrees and cleavage views along with computer-aided detection (CAD). Synthesized 2D images are generated from the tomosynthesis. Spot compression tomosynthesis images were also obtained. FINDINGS: BREAST COMPOSITION: There are scattered areas of fibroglandular density (ACR BI-RADS breast composition Category b). LEFT BREAST: Previously seen asymmetry in the inferior breast approximately 8 cm from the nipple persists on today's images (spot MLO 32/49). Its correlate on the CC view is identified in the medial breast posterior depth at about 8.5 cm from the nipple ([id number]/56). Targeted ultrasound was performed at the location of the mammographic finding. The survey throughout the lower inner quadrant did not reveal suspicious sonographic findings. US/US breast LT limited mamm only IMPRESSION: LEFT BREAST: Focal asymmetry in the lower inner quadrant posterior depth, without suspicious sonographic correlate. Probably benign. A 6-month follow-up mammogram is recommended. ASSESSMENT: BI-RADS 3 - Probably benign finding(s) - 6 month follow-up suggested RECOMMENDATION: 6 Month F/U Results were provided to the patient at time of visit by the technologist. This patient's information was entered into a reminder system with a target due date for their next mammogram. Electronically signed by: Ximena Ramirez MD 03/08/2025 10:35 AM EDT
--- OUTSIDE RECORDS SUMMARY | 2025-03-08 09:38 | XMS_ITS | Encounter Summary ---
Author Organization [employer] Address [address] [facility] [address] [place] [address] Care Team Providers Care Program Aide Name Role Phone Elen Mckoen MD Primary Care Provider [phone] Encounter Details Date Type Department Care Team (Latest Contact Info) Description 02/25/2025 Results Follow-Up [facility] [address] [place], [place] [phone] Elen Mckeon MD 230 [place], [place] [phone] BI Mammogram Screening Tomosynthesis Bilateral Social History Tobacco Use Types Packs/Day Years Used Date Smoking Tobacco: Never Depression Answer Date Recorded Patient Health Questionnaire-9 [...] not to disclose 2022 1:27 PM EST documented as of this encounter Miscellaneous Notes * Result Encounter Note - Elen Mckeon MD - 02/25/2025 5:39 PM EDT Abnormal result. Please add her on your list and assist us to follow up. documented in this encounter Plan of Treatment Upcoming Encounters Date Type Department Care Team (Late st Contact Info) Description 03/21/2025 9:00 AM EDT Office Visit [facility] [address] [place] [address] Stephane Whitaker, DMD 505 [place] [address] 04/01/2025 3:00 PM EDT Office Visit [facility] [address] [place] [address] Elen Mckeon MD 230 [place] [address] documented as of this encounter Visit Diagnoses Not on filedocumented in this encounter Additional Health Concerns Assessment Noted Time PHQ-9 Depression Total Score: 0 07/16/19 25 9:55 AM EST documented as of this encounter Care Teams Program Aide Relationship Specialty Start Date End Date Elen Mckeon MD [address] [place] [phone] PCP - General Family Medicine 10/17/15 documented as of this encounter
--- OUTSIDE RECORDS SUMMARY | 2025-03-08 09:38 | XMS_ITS | Encounter Summary ---
Author Organization [employer] Address [address] [place] [address] 7 [place] [address] Care Team Providers Care Rn Postpartum Name Role Phone Elen Mckeon MD Primary Care Provider [phone] Encounter Details Date Type Department Care Team ([facility] st Contact Info) Description 06/20/2022 Abstract [facility] [address] [place], [place] [phone] Elen Mckeon MD 230 [place], [place] [phone] Social History Tobacco Use Types Packs/Day Years Used Date Smoking Tobacco: Never Tobacco Cessation:Counseling Given: Not Answered Depression Answer Date Recorded Patient Health Questionnaire-2 Score 0 06/21/2022 Comments Unknown Sex and Gender Information Value Date Recorded Sex Assigned at Female 05/10/2022 10:27 AM EDT Legal Sex Female 10:27 AM EDT Gender Identity Choose not to disclose 1:27 PM EST Sexual Orientation Choose not to disclose 2022 1:27 PM EST COVID-19 Exposure Response Date Recorded In the last 10 days, have yo u been in contact with someone who was confirmed or suspected to have Coronavirus/COVID-19? No / Unsure 06/21/2022 1:04 PM EST documented as of this encounter Functional Status * Over the past 2 weeks, how often have you been bothered by any of the following problems? Question Answer Date of Assessment Author Little interest or pleasure in doing things Not at all 06/21/2022 1:27 PM EST Savita Morales [place] Feeling down, depressed, or hopeless Not at all 06/21/2022 1:27 PM Savita Luna MA Patient Health Questionnaire-2 Score 0 06/21/2022 1:27 PM Quynh Luna [place] documented as of this encounter Plan of Treatment Upcoming Encounters Date Type Department Care Team (Late st Contact Info) Description 03/21/2025 9:00 AM EDT Office Visit [facility] ADULT D[facility] [address] [place] [address] Stephane Whitaker, DMD 505 [place] [address] 04/01/2025 3:00 PM EDT Office Visit [facility] [address] [place] [address] Elen Mckeon MD [address] [place] [address] documented as of this encounter Visit Diagnoses Not on filedocumented in this encounter Care Teams Rn Postpartum Relationship Specialty Start Date End Date Elen Mckeon MD [address] [place] [phone] PCP - General Family Medicine 10/17/15 documented as of this encounter
--- OUTSIDE RECORDS SUMMARY | 2025-03-08 09:38 | XMS_ITS | Encounter Summary ---
Author Organization [employer] Address [address] [facility] 7t [place] [address] Care Team Providers Care Book Agent Name Role Phone Elen Mckeon MD Primary Care Provider [phone] Encounter Details Date Type Department Care Team (Late st Contact Info) Description 02/27/2025 Telephone [facility] ADULT DENTAL 230 [place], [place] [phone] Sandeep Márquez Social History Tobacco Use Types Packs/Day Years [...] as of this encounter Miscellaneous Notes * Telephone Encounter - Priyank Nuno - 02/27/2025 8:24 AM EDT UNABLE TO POST COVERAGE FOR TODAYS APPT documented in this encounter Plan of Treatment Upcoming Encounters Date Type Department Care Team (Late st Contact Info) Description 03/21/2025 9:00 AM EDT Office Visit [facility]ULT [facility] [address] [place] [address] Stephane Whitaker, DMD [address] [place] [address] 04/01/2025 3:00 PM EDT Office Visit [facility] [address] [place] [address] Elen Mckeon MD [address] [place] [phone] documented as of this encounter Visit Diagnoses Not on filedocumented in this encounter Additional Health Concerns Assessment Noted Time PHQ-9 Depression Total Score: 0 07/16/19 9:55 AM EST documented as of this encounter Care Teams Book Agent Relationship Specialty Start Date End Date Elen Mckeon MD [address] [place] [phone] PCP - General Family Medicine 10/17/15 documented as of this encounter
--- OUTSIDE RECORDS SUMMARY | 2025-03-08 09:38 | XMS_ITS | Clinical Summary ---
Author Organization [employer] Address [address] [place] [address] 7t [place] [address] Care Team Providers Care Divorce Lawyer Name Role Phone Elen Mckeno MD Primary Care Provider Allergies No known active allergies Medications acetaminophen [...] (05/03/2024 10:02 AM EDT): - Evaluated by [facility] for chronic pelvic pain and hydrosalpinx seen on US in Jun 2022. - Last US in December 2022 showed: Small uterine fibroids. Stable cystic structure in the left adnexa questionable for hydrosalpinx. - Given reassurance Assessment & Plan (07/04/2023 6:04 AM EST): - Evaluated by [facility] for chronic pelvic pain and hydrosalpinx seen [...] (07/04/2023 6:06 AM EST): - evaluated by [facility] - had 3 US studies which show [...] Encounters Date Type Department Care Team Description 02/27/2025 3:30 PM EDT Office Visit [facility] ADULT D[facility] [address] [place] [address] Stephane Whitaker DMD Reversible pulpitis (Primary Dx) 02/27/2025 Travel 02/27/2025 Telephone [facility] ADULT DENTAL [address] [place] [address] Sandeep Márquez 02/25/2025 Results Follow-Up [facility] [address] [place] [address] Elen Mckeon MD BI Mammogram Screening Tomosynthesis Bilateral 02/18/2025 Orders Only [facility] [address] [place] [address] Elen Mckeon MD 12/27/2024 Orders Only GENERIC EXTERNAL DATA DEPARTMENT [...] 07/16/2024 9:54 AM EST Plan of Treatment Upcoming Encounters Date Type Department Care Team (Late st Contact Info) Description 03/21/2025 9:00 AM EDT Office Visit [facility] [address] [place] [address] Stephane Whitaker, MIREYA 505 [place] [address] 04/01/2025 3:00 PM EDT Office Visit [facility] [address] [place] [address] Elen Mckeon MD [address] [place] [address] Health Maintenance Due Date Last Done Comments Disability Screening 1980 Family Planning (PISQ) 1997 HPV Vaccines (1 - 3-dose series) 1997 IPV Vaccines (3 of 3 - Adult catch-up series) 08/02/2007 01/30/2007, 09/06/2006 Dental Oral Exam 06/16/2017 12/14/2016 Dental Prophylaxis 06/18/2017 12/16/2016 Dental X-Ray: Full Mouth 12/16/2019 12/14/2016 COVID-19 Vaccine (3 - 2023-2 5 season) 2024 11/20/2020, 10/25/2020 Diagnostic Breast Imaging 03/08/2025 11/15/2022 Influenza Vaccine (#1) 2025 , 06/28/2023, 04/01/2022 SDOH Screening 07/03/2025 07/03/2024 Alcohol/Substance Use Screening 07/16/2025 07/16/2024 Depression Screening 07/16/2025 07/16/2024, 07/16/2024 Pap Smear 12/14/2025 12/14/2022, 12/07/2018 Tobacco Screening 02/27/2026 02/27/2025 Dental X-Ray: Bitewings 02/28/2026 02/28/20 25, 12/14/2016 DTaP/Tdap/Td Vaccines (2 - T d or [...] Procedure Name Priority Date/Time Associated Diagnosis Comments CASE PRESENTATION, DETAILED AND EXTENSIVE TREATMENT PLANNING Routine 02/27/2025 3:30 PM EDT Reversible pulpitis LIMITED ORAL EVALUATION - PROBLEM FOCUSED Routine 02/27/2025 3:30 PM EDT Reversible pulpitis INTRAORAL - PERIAPICAL FIRST RADIOGRAPHIC IMAGE Routine 02/27/2025 3:30 PM EDT Reversible pulpitis BITEWING - SINGLE RADIOGRAPHIC IMAGE Routine 02/27/2025 3:30 PM EDT Reversible pulpitis 2 PFM CROWN Routine 02/27/2025 12:00 AM EDT 31 SURGICAL PLACEMENT OF IMPLANT BODY - ENDOSTEAL IMPLANT Routine 02/27/2025 12:00 AM EDT 30 SURGICAL PLACEMENT OF IMPLANT BODY - ENDOSTEAL IMPLANT Routine 02/27/2025 12:00 AM EDT 3 SURGICAL PLACEMENT OF IMPLANT BODY - ENDOSTEAL IMPLANT Routine 02/27/2025 12:00 AM EDT BI MAMMOGRAM SCREENING TOMOSYNTHESIS BILATERAL Routine 02/18/2025 9:34 AM EDT BACTERIAL VAGINOSIS PANEL Routine 12/27/2024 9:29 AM EDT HPV MRNA E6/E7 REFLEX TO HPV 16, 18/45 Routine 12/14/2022 9:36 AM EDT PAP SMEAR Routine 12/14/2022 9:36 AM EDT HM MAMMOGRAPHY Routine 11/15/2022 PROPHYLAXIS - ADULT Routine 12/16/2016 1 2:00 AM EDT INTRAORAL - COMPLETE SERIES OF RADIOGRAPHIC IMAGES Routine 12/14/2016 12:00 AM EDT COMPREHENSIVE ORAL EVALUATION - NEW OR ESTABLISHED PATIENT Routine 12/14/2016 12:00 AM EDT from Last 3 Months or Most Recently Relevant to Health Maintenance Results * BI Mammogram Screening Tomosynthesis Bilateral (02/18/2025 9:34 AM EDT) Anatomical Region Laterality Modality Breast Bilateral Mammography 02/18/2025 9:34 AM EDT Narrative 02/25/2025 12:21 PM EDT [facility] [address] [place] [address] Mammography Report Signed Patient: Jose Rock MR#: [id number] : 1980 Acct:[id number] Age/Sex: 44 / F ADM Date: 02/18/25 Loc: HO.MAMMO Attending Dr: Elen Mckeon MD Ordering Physician: Elen Mckeon MD Results: 0Incomple te: Needs Additional Imaging Evaluation Date of Service: 02/18/25 Follow Up: Additional Imagi ng Procedure(s): MM tomosynthesis screening BI Accession Number(s): [id number] cc: Elen Mckeon MD EXAMINATION: MM SCREENING DIGITAL BREAST TOMOSYNTHESIS, BILATERAL CLINICAL INFORMATION: Screening. Asymptomatic. COMPARISON: Mammography: Comparison is made with available priors TECHNIQUE: Digital breast mammography with tomosynthesis is performed in both the craniocaudal and mediolateral oblique views along with computer-aided detection (CAD). FINDINGS: The breasts are heterogeneously dense, which may obscure small masses (ACR BI-RADS breast composition Category c). Left: Asymmetry inferior breast on MLO view. No suspicious calcifications or other abnormal findings. Right: There are no significant masses, abnormal calcifications, or other abnormalities. MM/MM tomosynthesis screening BI IMPRESSION: Additional imaging is recommended ASSESSMENT: BI-RADS BI-RADS 0 - Incomplete: Needs additional Imaging. RECOMMENDATION: 1. Additional views of the left breast. 2. Targeted ultrasound if warranted after review of the additional views. 3. Radiology department staff will contact the patient for additional imaging. Additional Imaging required This examination should not preclude the clinical evaluation of a suspicious palpable abnormality. This patient's information was entered into a reminder system with a target due date for their next mammogram. Electronically signed by: Guerda Cummings DO 02/25/2025 12:18 PM EDT RP Dictated By: Guerda Cummings DO Signed By: <Electronically signed by Guerda Cummings DO in OV> 02/25/25 1218 DD/ 0934 TD/TT: 02/18/25 1008 Automatic Stacker: Procedure Note Donotuseinterpreter, Image - 02/25/2025 [facility] [address] [place] [address] Mammography Report Signed Patient: Nile Rock#: [id number] : 1980Acct:[id number] Age/Sex: 44 / FADM Date: 02/18/25 Loc: HO.MAMMO Attending Dr: Elen Mckeon MD Ordering Physician: Elen Mckeon MDResults: 0Incomple te: Needs Additional Imaging Evaluation Date of Service: 02/18/25Follow Up: Additional Imagi ng Procedure(s): MM tomosynthesis screening BI Accession Number(s): [id number] cc: Elen Mckeon MD EXAMINATION: MM SCREENING DIGITAL BREAST TOMOSYNTHESIS, BILATERAL CLINICAL INFORMATION: Screening. Asymptomatic. COMPARISON: Mammography: Comparison is made with available priors TECHNIQUE: Digital breast mammography with tomosynthesis is performed in both the craniocaudal and mediolateral oblique views along with computer-aided detection (CAD). FINDINGS: The breasts are heterogeneously dense, which may obscure small masses (ACR BI-RADS breast composition Category c). Left: Asymmetry inferior breast on MLO view. No suspicious calcifications or other abnormal findings. Right: There are no significant masses, abnormal calcifications, or other abnormalities. MM/MM tomosynthesis screening BI IMPRESSION: Additional imaging is recommended ASSESSMENT: BI-RADS BI-RADS 0 - Incomplete: Needs additional Imaging. RECOMMENDATION: 1. Additional views of the left breast. 2. Targeted ultrasound if warranted after review of the additional views. 3. Radiology department staff will contact the patient for additional imaging. Additional Imaging required This examination should not preclude the clinical evaluation of a suspicious palpable abnormality. This patient's information was entered into a reminder system with a target due date for their next mammogram. Electronically signed by: Guerda Cummings DO 02/25/2025 12:18 PM EDT Dictated By: Guerda Cummings DO Signed By: <Electronically signed by Guerda Cummings DO in OV> 02/25/25 1218 DD/ 0934 TD/TT: 02/18/25 1008 Automatic Stacker: Elen Mckeon MD IMG BI PROCEDURES Final Result * Bacterial Vaginosis (12/27/2024 9:29 AM EDT) [...] LAB MICROBIOLOGY - GENERAL ORDERABLES Final Result [facility] [address] [place] [phone] * HPV mRNA E6/E7 w/Reflex to HPV [...] alternative testing options.For additional information, please refer tohttp://education.[employer]/faq/WFA216a9(This link if provided for information/educational purposes only.)THIS TEST WAS PERFORMED AT:[facility] [place] [phone] ALCALA MD HPV mRNA E6/E7 [facility] HPV 16 RNA [facility] HPV 18/45 RNA [facility] 12/14/2022 9:36 AM EDT 12/14/2022 12:15 PM EDT [facility] External Provider LAB CYT OLOGY ORDERABLES Final Result Performing Organization Address City/State/[facility] Co de Phone Number [facility] [address] [place] [phone] * Pap Smear (12/14/2022 9:36 AM EDT) 12/14/2022 9:36 AM EDT 12/14/2022 12:15 PM EDT Narrative [facility] - 01/07/2023 8:48 AM EDT ----- ------- Name: Jose Rock Age/Sex: 42/F : 1980 Unit#: [id number] Attend Dr: Tiki Gama CNM Re12/14/22 Status: DEP [facility] Disch: ----- ------- SPEC : [id number] RECD: 12/14/22-1215 STATUS: ANA OROZCO NUM: [id number] JHOAN: 12/14/22-935 [facility] DR: Tiki Gama CNM ENTERED: 12/14/22-1256 SP TYPE: Pap Smr OTHR DR: Elen Mckeon MD ORDERED: Pap Smear Interpretation Satisfactory for evaluation. Blood. Mild inflammation. Negative for intraepithelial lesion or malignancy. HPV mRNA E6/E7: NOT DETECTED This assay detects E6/E7 viral messenger RNA (mRNA) from 14 high-risk HPV types (16, 18, 31, 33, 35, 39, 45, 51, 52, 56, 58, 59, 66, 68) HPV testing performed by [email or web address], [place], [place]. See reference laboratory pion of the EMR for entire report. Clinical Information LMP: 12/11/22 Previous PAP test: 2019, WNL Material Received ThinPrep-Cervical Copies To: Tiki Gama[address] [place] [address] Elen Mckeon MD [address] [place] [address] ----- ------- Signed (signature on file) MARY Vasquez ([facility]) 01/07/23 0848 ----- ------- END OF REPORT [facility] External Provider LAB CYT DARVIN ORDERABLES Final Result [facility] [address] [place] [phone] * Mammography (11/15/2022) Mammogram bi-rads 1 Anatomical Region Laterality Modality Other Elen Mckeon MD HEALTH MAINTENANCE Final Result from Last 3 Months or Most Recently Relevant to Health Maintenance Insurance [facility] D[facility] - HSN PARTIAL (MEDICAID) Care Teams Divorce Lawyer Relationship Specialty Start Date End Date Elen Mckeon MD [address] [place] [phone] PCP - General Family Medicine 10/17/15
--- OUTSIDE RECORDS SUMMARY | 2025-03-08 09:38 | XMS_ITS | Encounter Summary ---
Author Organization [employer] Address [address] [place] [address] [address] [place] [address] Care Team Providers Care Supervisor Hide [employer] Name Role Phone Elen Mckeon MD Primary Care Provider [phone] Encounter Details Date Type Department Care Team (Late st Contact Info) Description 07/20/2022 Orders Only [facility] MED[facility] [address] [place], [place] [phone] Elen Mckeon MD [address] [place], [place] [phone] Hydrosalpinx (Primary Dx) Social History Tobacco Use Types Packs/Day Years Used Date Smoking Tobacco: Never Depression Answer Date Recorded Patient Health Questionnaire-2 [...] PM EST documented as of this encounter Plan of Treatment Upcoming Encounters Date Type Department Care Team (Late st Contact Info) Description 03/21/2025 9:00 AM EDT Office Visit [facility] ADULT DENTAL [address] [place], [place] [phone] Stephane Whitaker, DMD 505 [place], [place] [phone] 04/01/2025 3:00 PM EDT Office Visit [facility] MED[facility] [address] [place] [address] Elen Mckeon MD [address] [place] [address] documented as of this encounter Visit Diagnoses Diagnosis Hydrosalpinx- Primary Chronic salpingitis and oophoritis documented in this encounter Care Teams Supervisor [employer] House Relationship Specialty Start Date End Date Elen Mckeon MD [address] [place] [phone] PCP - General Family Medicine 10/17/15 documented as of this encounter
== END 2025-03-08 08:46 | disposition home or self-care (01) ==
LOC: HO.MAMMO 08:45
PROVIDERS: PCP Family Medicine; Visit Provider Family Medicine
DX: Z12.31 Encounter for screening mammogram for malignant neoplasm of breast (principal); N64.89 Other specified disorders of breast
CPT/HCPCS: 76642; 77061; 77065

== ENCOUNTER → 2025-03-08 09:00 | Outpatient (BNV) | payer OTHER, SELFPAY | PROVIDERS: PCP Family Medicine; Visit Provider Radiology Body Imaging | DX: R92.8 Other abnormal and inconclusive findings on diagnostic imaging of breast (principal); R92.322 Mammographic fibroglandular density, left breast | CPT/HCPCS: 76642; 77061; 77065 ==

== ENCOUNTER 2025-03-23 07:38 | Inpatient (IN) | payer OTHER, SELFPAY ==
[2025-03-23] VITALS (8 sets, daily range): BP systolic 131–145; BP diastolic 64–75; PULSE 52–66; RESP 14–18; TEMP 36.7–37.3; O2SAT 98–100; BMI 28.9
--- NOTE | ~2025-03-23 | CT_ITS ---
CLINICAL HISTORY: epigastric pain, white count, vomiting CT abdomen and pelvis with contrast Comparison: None provided Findings: Minimal bibasilar dependent subsegmental atelectasis. Hiatal hernia. Cholelithiasis; single stone, 2.3 x 3 cm. . Pericholecystic edema. Left renal interpolar region cortical low-attenuation lesion, 3.4 x 4 cm; cysts. No bowel obstruction, pneumoperitoneum, or pneumatosis. The appendix within normal limits. Left ovarian low-attenuation lesion, 2.2 cm. The bones are intact. L5-S1: Moderate DJD. IMPRESSION: 1. Large gallstone (2.3 x 3 cm) with pericholecystic edema, concerning for acute cholecystitis. 2. Left renal interpolar cortical cyst, 3.4 x 4 cm. 3. Left ovarian cyst, 2.2 cm. 4. Hiatal hernia. This document has been electronically signed by: Chris Topete MD on 03/23/2025 14:41:35
--- NOTE | 2025-03-23 07:46 | ECG_ITS ---
Test Reason : ABDOMINAL PAIN Blood Pressure : */* mmHG Vent. Rate : 55 BPM Atrial Rate : 55 BPM P-R Int : 140 ms QRS Dur : 86 ms QT Int : 440 ms P-R-T Axes : 12 54 48 degrees QTcB Int : 420 ms Sinus bradycardia Otherwise normal ECG No previous ECGs available Referred By: Generic ED Physician Electronically Signed By: JAYCOB CASTILLO MD
--- OUTSIDE RECORDS SUMMARY | 2025-03-23 07:59 | XMS_ITS | Clinical Summary ---
Author Organization [employer] Address [address] [place] [address] 7t [place] [address] Care Team Providers Care Transformer Shop Supervisor Name Role Phone Elen Mckeon MD Primary Care Provider [phone] Allergies No known active allergies Medications acetaminophen [...] (05/03/2024 10:02 AM EDT): - Evaluated by [facility] for chronic pelvic pain and hydrosalpinx seen on US in Jun 2022. - Last US in December 2022 showed: Small uterine fibroids. Stable cystic structure in the left adnexa questionable for hydrosalpinx. - Given reassurance Assessment & Plan (07/04/2023 6:04 AM EST): - Evaluated by [facility] for chronic pelvic pain and hydrosalpinx seen [...] (07/04/2023 6:06 AM EST): - evaluated by [facility] - had 3 US studies which show [...] Description 02/27/2025 3:30 PM EDT Office Visit [facility] [address] [place] [address] Stephane Whitaker DMD Reversible pulpitis (Primary Dx) 02/27/2025 Travel 02/27/2025 Telephone [facility] [address] [place] [address] Sandeep Márquez 02/25/2025 Results Follow-Up [facility] [place] [address] Elen Mckeon MD BI Mammogram Screening Tomosynthesis Bilateral, BI US Breast Limited Left 02/18/2025 Orders Only [facility] [place] [address] Elen Mckeon MD 12/27/2024 Orders Only GENERIC [...] Care Team (Late st Contact Info) Description 04/01/2025 3:00 PM EDT Office Visit [facility] [address] [place], [place] [phone] Elen Mckeon MD [address] [place] [address] Health Maintenance Due Date Last Done Comments Disability Screening 1980 Family Planning (PISQ) 1997 HPV Vaccines (1 - 3-dose series) 1997 IPV Vaccines (3 of 3 - Adult catch-up series) 08/02/2007 01/30/2007, 09/06/2006 Dental Oral Exam 06/16/2017 12/14/2016 Dental Prophylaxis 06/18/2017 12/16/2016 Dental X-Ray: Full Mouth 12/16/2019 12/14/2016 COVID-19 Vaccine (3 - 2024-2 6 season) 2025 11/20/2020, 10/25/2020 Influenza Vaccine (#1) 2025 , 06/28/2023, 04/01/2022 Diagnostic Breast Imaging 04/08/20252024, 11/15/2022 SDOH Screening 07/03/2025 07/03/2024 Alcohol/Substance Use Screening 07/16/2025 07/16/2024 Depression Screening 07/16/2025 07/16/2024, 07/16/2024 Pap Smear 12/14/2025 12/14/2022, 12/07/2018 Tobacco Screening 02/27/2026 02/27/2025 Dental X-Ray: Bitewings 02/28/2026 02/28/20, 12/14/2016 DTaP/Tdap/Td Vaccines (2 - T d [...] Name Priority Date/Time Associated Diagnosis Comments BI US BREAST LIMITED LEFT Routine 03/08/2025 9:04 AM EDT BI MAMMOGRAM DIAGNOSTIC TOMOSYNTHESIS ADDED VIEW LEFT Routine 03/08/2025 8:50 AM EDT CASE PRESENTATION, DETAILED AND EXTENSIVE TREATMENT PLANNING [...] PAP SMEAR Routine 12/14/2022 9:36 AM EDT PROPHYLAXIS - ADULT Routine 12/16/2016 1 2:00 AM EDT INTRAORAL - COMPLETE SERIES OF RADIOGRAPHIC IMAGES Routine 12/14/2016 12:00 AM EDT COMPREHENSIVE ORAL EVALUATION - NEW OR ESTABLISHED PATIENT Routine 12/14/2016 12:00 AM EDT from Last 3 Months or Most Recently Relevant to Health Maintenance Results * BI US Breast Limited Left (03/08/2025 9:04 AM EDT) Anatomical Region Laterality Modality Breast Left Ultrasound 03/08/2025 9:04 AM EDT Narrative 03/08/2025 10:38 AM EDT [facility] [place] [address] Ultrasound Report Signed Patient: Jose Rock MR#: [id number] : 1980 Acct:[id number] Age/Sex: 44 / F ADM Date: 03/08/25 Loc: HO.MAMMO Attending Dr: Elen Mckeon MD Ordering Physician: Elen Mckeon MD Date of Service: 03/08/25 Procedure(s): US breast LT limited mamm only Accession Number(s): [id number] cc: Elen Mckeon MD EXAMINATIONS: 1. MM DIAGNOSTIC DIGITAL BREAST TOMOSYNTHESIS, LEFT 2. Targeted ultrasound of the left breast CLINICAL INFORMATION: Callback from screening for left breast asymmetry in the inferior breast on the MLO view. COMPARISON: Comparison made to multiple prior, most recent February 18, 2025, and most remote November 15, 2022. TECHNIQUE: Digital breast tomosynthesis is performed in full-field ML 90 degrees and cleavage views along with computer-aided detection (CAD). Synthesized 2D images are generated from the tomosynthesis. Spot compression tomosynthesis images were also obtained. FINDINGS: BREAST COMPOSITION: There are scattered areas of fibroglandular density (ACR BI-RADS breast composition Category b). LEFT BREAST: Previously seen asymmetry in the inferior breast approximately 8 cm from the nipple persists on today's images (spot MLO 32/49). Its correlate on the CC view is identified in the medial breast posterior depth at about 8.5 cm from the nipple (ccvoeckp84/56). Targeted ultrasound was performed at the location of the mammographic finding. The survey throughout the lower inner quadrant did not reveal suspicious sonographic findings. US/US breast LT limited mamm only IMPRESSION: LEFT BREAST: Focal asymmetry in the lower inner quadrant posterior depth, without suspicious sonographic correlate. Probably benign. A 6-month follow-up mammogram is recommended. ASSESSMENT: BI-RADS 3 - Probably benign finding(s) - 6 month follow-up suggested RECOMMENDATION: 6 Month F/U Results were provided to the patient at time of visit by the technologist. This patient's information was entered into a reminder system with a target due date for their next mammogram. Electronically signed by: Ximena Ramirez MD 03/08/2025 10:35 AM EDT Dictated By: Ximena Ramirez MD Signed By: <Electronically signed by Ximena Ramirez MD in OV> 03/08/25 1035 DD/ 0904 TD/TT: 03/08/25 0938 Bag Maker: Procedure Note Donotuseinterpreter, Image - 03/08/2025 [facility] [address] [place] [address] Ultrasound Report Signed Patient: Nile Rock#: [id number] : 1980Acct:[id number] Age/Sex: 44 / FADM Date: 03/08/25 Loc: HO.MAMMO Attending Dr: Elen Mckeon MD Ordering Physician: Elen Mckeon MD Date of Service: 03/08/25 Procedure(s): US breast LT limited mamm only Accession Number(s): [id number] cc: Elen Mckeon MD EXAMINATIONS: 1. MM DIAGNOSTIC DIGITAL BREAST TOMOSYNTHESIS, LEFT 2. Targeted ultrasound of the left breast CLINICAL INFORMATION: Callback from screening for left breast asymmetry in the inferior breast on the MLO view. COMPARISON: Comparison made to multiple prior, most recent February 18, 2025, and most remote November 15, 2022. TECHNIQUE: Digital breast tomosynthesis is performed in full-field ML 90 degrees and cleavage views along with computer-aided detection (CAD). Synthesized 2D images are generated from the tomosynthesis. Spot compression tomosynthesis images were also obtained. FINDINGS: BREAST COMPOSITION: There are scattered areas of fibroglandular density (ACR BI-RADS breast composition Category b). LEFT BREAST: Previously seen asymmetry in the inferior breast approximately 8 cm from the nipple persists on today's images (spot MLO 32/49). Its correlate on the CC view is identified in the medial breast posterior depth at about 8.5 cm from the nipple (kjgpsaib60/56). Targeted ultrasound was performed at the location of the mammographic finding. The survey throughout the lower inner quadrant did not reveal suspicious sonographic findings. US/US breast LT limited mamm only IMPRESSION: LEFT BREAST: Focal asymmetry in the lower inner quadrant posterior depth, without suspicious sonographic correlate. Probably benign. A 6-month follow-up mammogram is recommended. ASSESSMENT: BI-RADS 3 - Probably benign finding(s) - 6 month follow-up suggested RECOMMENDATION: 6 Month F/U Results were provided to the patient at time of visit by the technologist. This patient's information was entered into a reminder system with a target due date for their next mammogram. Electronically signed by: Ximena Ramirez MD 03/08/2025 10:35 AM EDT Workstation: [employer] Dictated By: Ximena Ramirez MD Signed By: <Electronically signed by Ximena Ramirez MD in OV> 03/08/25 1035 DD/ 0904 TD/TT: 03/08/25 0938 Bag Maker: us Elen Mckeon MD IMG US PROCEDURES Edited Result - Final * BI Mammogram Diagnostic Tomosynthesis added left (03/08/2025 8:50 AM EDT) Anatomical Region Laterality Modality Breast Left Mammography 03/08/2025 8:50 AM EDT Narrative 03/08/2025 10:38 AM EDT [facility] [address] [place] [address] [place] [address] Mammography Report Signed Patient: Jose Rock MR#: [id number] : 1980 Acct:[id number] Age/Sex: 44 / F ADM Date: 03/08/25 Loc: SHA[place]NA[place] Attending Dr: Elen Mckeon MD Ordering Physician: Elen Mckeon MD Results: 3.6MProba annabella Benign Finding - Short 6 M F/U Suggested Date of Service: 03/08/25 Follow Up: 6 Month F/U Procedure(s): MM tomosynthesis added views L Accession Number(s): [id number] cc: Elen Mckeon MD EXAMINATIONS: 1. MM DIAGNOSTIC DIGITAL BREAST TOMOSYNTHESIS, LEFT 2. Targeted ultrasound of the left breast CLINICAL INFORMATION: Callback from screening for left breast asymmetry in the inferior breast on the MLO view. COMPARISON: Comparison made to multiple prior, most recent February 18, 2025, and most remote November 15, 2022. TECHNIQUE: Digital breast tomosynthesis is performed in full-field ML 90 degrees and cleavage views along with computer-aided detection (CAD). Synthesized 2D images are generated from the tomosynthesis. Spot compression tomosynthesis images were also obtained. FINDINGS: BREAST COMPOSITION: There are scattered areas of fibroglandular density (ACR BI-RADS breast composition Category b). LEFT BREAST: Previously seen asymmetry in the inferior breast approximately 8 cm from the nipple persists on today's images (spot MLO 32/49). Its correlate on the CC view is identified in the medial breast posterior depth at about 8.5 cm from the nipple (walxpown98/56). Targeted ultrasound was performed at the location of the mammographic finding. The survey throughout the lower inner quadrant did not reveal suspicious sonographic findings. MM/MM tomosynthesis added views L IMPRESSION: LEFT BREAST: Focal asymmetry in the lower inner quadrant posterior depth, without suspicious sonographic correlate. Probably benign. A 6-month follow-up mammogram is recommended. ASSESSMENT: BI-RADS 3 - Probably benign finding(s) - 6 month follow-up suggested RECOMMENDATION: 6 Month F/U Results were provided to the patient at time of visit by the technologist. This patient's information was entered into a reminder system with a target due date for their next mammogram. Electronically signed by: Ximena Ramirez MD 03/08/2025 10:35 AM EDT Dictated By: Ximena Ramirez MD Signed By: <Electronically signed by Ximena Ramirez MD in OV> 03/08/25 1035 DD/ 0850 TD/TT: 03/08/25 0905 Bag Maker: Procedure Note Donotuseinterpreter, Image - 03/08/20[facility] [address] [place], [place] [address] Mammography Report Signed Patient: Nile Rock#: [id number] : 1980Acct:[id number] Age/Sex: 44 / FADM Date: 03/08/25 Loc: HO.MAMMO Attending Dr: Elen Mckeon MD Ordering Physician: Elen Mckeon MDResults: 3.6MProba annabella Benign Finding - Short 6 M F/U Suggested Date of Service: 03/08/25Follow Up: 6 Month F/U Procedure(s): MM tomosynthesis added views L Accession Number(s): [id number] cc: Elen Mckeon MD EXAMINATIONS: 1. MM DIAGNOSTIC DIGITAL BREAST TOMOSYNTHESIS, LEFT 2. Targeted ultrasound of the left breast CLINICAL INFORMATION: Callback from screening for left breast asymmetry in the inferior breast on the MLO view. COMPARISON: Comparison made to multiple prior, most recent February 18, 2025, and most remote November 15, 2022. TECHNIQUE: Digital breast tomosynthesis is performed in full-field ML 90 degrees and cleavage views along with computer-aided detection (CAD). Synthesized 2D images are generated from the tomosynthesis. Spot compression tomosynthesis images were also obtained. FINDINGS: BREAST COMPOSITION: There are scattered areas of fibroglandular density (ACR BI-RADS breast composition Category b). LEFT BREAST: Previously seen asymmetry in the inferior breast approximately 8 cm from the nipple persists on today's images (spot MLO 32/49). Its correlate on the CC view is identified in the medial breast posterior depth at about 8.5 cm from the nipple (tlaveqys30/56). Targeted ultrasound was performed at the location of the mammographic finding. The survey throughout the lower inner quadrant did not reveal suspicious sonographic findings. MM/MM tomosynthesis added views L IMPRESSION: LEFT BREAST: Focal asymmetry in the lower inner quadrant posterior depth, without suspicious sonographic correlate. Probably benign. A 6-month follow-up mammogram is recommended. ASSESSMENT: BI-RADS 3 - Probably benign finding(s) - 6 month follow-up suggested RECOMMENDATION: 6 Month F/U Results were provided to the patient at time of visit by the technologist. This patient's information was entered into a reminder system with a target due date for their next mammogram. Electronically signed by: Ximena Ramirez MD 03/08/2025 10:35 AM EDT Workstation: [employer] Dictated By: Ximena Ramirez MD Signed By: <Electronically signed by Ximena Ramirez MD in OV> 03/08/25 1035 DD/ 0850 TD/TT: 03/08/25 0905 Bag Maker: Elen Mckeon MD IMG BI PROCEDURES Edited Result - Final * BI Mammogram Screening Tomosynthesis Bilateral (02/18/2025 9:34 AM EDT) Anatomical Region Laterality Modality Breast Bilateral Mammography 02/18/2025 9:34 AM EDT Narrative 02/25/2025 12:21 PM EDT [facility] [address] [place] [address] Mammography Report Signed Patient: Jose Rock MR#: [id number] : 1980 Acct:[id number] Age/Sex: 44 / F ADM Date: 02/18/25 Loc: HO.MAMMO Attending Dr: Elen Mckeon MD Ordering Physician: Elen Mckeon MD Results: 0Incomple te: Needs Additional Imaging Evaluation Date of Service: 02/18/25 Follow Up: Additional Imagi ng Procedure(s): MM tomosynthesis screening BI Accession Number(s): [id number] cc: Elen Mckeon MD EXAMINATION: MM SCREENING [...] 02/25/25 1218 DD/ 0934 TD/TT: 02/18/25 1008 Bag Maker: Procedure Note Donotuseinterpreter, Image - 02/25/2025 [facility] [address] [place] [address] Mammography Report Signed Patient: Nile Rock#: [id number] : 1980Acct:[id number] Age/Sex: 44 / FADM Date: 02/18/25 Loc: [place] Attending Dr: Elen Mckeon MD Ordering Physician: Elen Mckeon MDResults: 0Incomple te: Needs Additional Imaging Evaluation Date of Service: 02/18/25Follow Up: Additional Imagi ng Procedure(s): MM tomosynthesis screening BI Accession Number(s): [id number] cc: Elen Mckeon MD EXAMINATION: MM SCREENING [...] 02/25/25 1218 DD/ 0934 TD/TT: 02/18/25 1008 Bag Maker: Elen Mckeon MD IM BI PROCEDURES Final Result * Bacterial Vaginosis (12/27/2024 9:29 AM EDT) TRICHOMONAS VAGINALIS DETECTION BY PCR NOT DETECTED Not Detect [facility] BACTERIAL VAGINOSIS DETECTION BY PCR NEGATIVE Negative [facility] Comment:The BV organism targ ets of [...] evaluatedin patients under the age of 14. VIVAINA GROUP DETECTION BY PCR NOT DETECTED Not Detect [facility] Viviana glab krusei PCR NOT DETECTED Not Detect [facility] 12/27/2024 9:29 AM EDT 12/27/2024 11:14 AM EDT Generic External Data Provider LAB MICROBIOLOGY - GENERAL ORDERABLES Final Result Performing Organization Address [facility]/ZIP Co de Phone Number [facility] [address] [place] [address] [phone] * HPV mRNA E6/E7 w/Reflex to HPV Genotypes 16, 18/45 (12/14/2022 9:36 AM EDT) HPV nRNA E6/E7 Not Detected Not Detected [facility] Comment:Methodology: Transcr iption-Mediated AmplificationThis assay detects E6/E7 viral messenger RNA (mRNA) from 14high-risk HPV types (16,18,31,33,35,39,45,51,52,56,58,59,66,68).Cervical sources are required for HPV testing.If a vaginal source from a patient who has had atotal hysterectomy with removal of cervix wassubmitted, please contact the testing laboratoryfor alternative testing options.For additional information, please refer [email or web address].Takkle/faq/QAB918g5(This link if provided for information/educational purposes only.)THIS TEST WAS PERFORMED AT:[facility] [place] [id number] ALCALA MD HPV mRNA E6/E7 TNP [facility] HPV 16 RNA [facility] HPV 18/45 RNA [facility] 12/14/2022 9:36 AM EDT 12/14/2022 12:15 PM EDT [facility] External Provider LAB CYT OLOGY ORDERABLES Final Result Performing Organization Address City/[facility]/ZIP Co de Phone Number [facility] [address] [place] [address] [phone] * Pap Smear (12/14/2022 9:36 AM EDT) 12/14/2022 9:36 AM EDT 12/14/2022 12:15 PM EDT [facility] - 01/07/2023 8:48 AM EDT ----- ------- Name: Jose Rock Age/Sex: 42/F : 1980 Unit#: [id number] Attend Dr: Tiki Gama CNM Re12/14/22 Status: DEP [facility] Disch: ----- ------- SPEC : [id number] RECD: 12/14/22-1214 STATUS: ANA OROZCO NUM: [id number] JHOAN: 12/14/22-36 [facility] DR: Tiki Gama CNM ENTERED: 12/14/22-1256 SP TYPE: Pap Smr [facility] DR: Elen Mckeon MD ORDERED: Pap Smear Interpretation Satisfactory for evaluation. Blood. Mild inflammation. Negative for intraepithelial lesion or malignancy. HPV mRNA E6/E7: NOT DETECTED This assay detects E6/E7 viral messenger RNA (mRNA) from 14 high-risk HPV types (16, 18, 31, 33, 35, 39, 45, 51, 52, 56, 58, 59, 66, 68) HPV testing performed by [employer], [place], [place]. See reference laboratory pion of the EMR for entire report. Clinical Information LMP: 12/11/22 Previous PAP test: 2019, WNL Material Received ThinPrep-Cervical Copies To: Tiki Gama CNM [address] [place] [address] Dr. Lawrence Dunbar [place] [address] Elen Mckeon MD [address] [place] [address] ----- ------- Signed (signature on file) MARY Vasquez ([facility]) 01/07/23 0848 ----- ------- END OF REPORT [facility] External Provider LAB [facility] [place] [place] Final Result [facility] [address] [place] [address] [phone] from Last 3 Months or Most Recently Relevant to Health Maintenance Insurance [facility] D[facility] - HSN PARTIAL (MEDICAID) Care Teams Transformer Shop Supervisor Relationship Specialty Start Date End Date Elen Mckeon MD [address] [place] [phone] PCP - General Family Medicine 10/17/15
--- OUTSIDE RECORDS SUMMARY | 2025-03-23 07:59 | XMS_ITS | Encounter Summary ---
Author Organization [employer] Address [address] [facility] [address] [place] [address] Care Team Providers Care Senior Quantity Surveyor Name Role Phone Elen Mckeon MD Primary Care Provider [phone] Encounter Details Date Type Department Care Team (Late st Contact Info) Description 02/27/2025 Telephone [facility] [address] [place], [place] [phone] Sandeep Márquez Social History Tobacco Use Types [...] Description 04/01/2025 3:00 PM EDT Office Visit [facility] [address] [place] [address] Elen Mckeon MD [address] [place] [address] documented as of this encounter Visit Diagnoses Not on filedocumented in this encounter Additional Health Concerns Assessment Noted Time PHQ-9 Depression Total Score: 0 07/16/19 25 9:55 AM EST documented as of this encounter Care Teams Senior Quantity Surveyor Relationship Specialty Start Date End Date Elen Mckeon MD [address] [place] [address] PCP - General Family Medicine 10/17/15 documented as of this encounter
--- OUTSIDE RECORDS SUMMARY | 2025-03-23 07:59 | XMS_ITS | Encounter Summary ---
Author Organization [employer] Address [address] [place] [address] [place] [address] Care Team Providers Care Clinical Advisor Name Role Phone Elen Mckeon MD Primary Care Provider [phone] Encounter Details Date Type Department Care Team (Late st Contact Info) Description 07/20/2022 Orders Only [facility] [address] [place] [address] [phone] Elen Mckeon MD [address] [place] [address] [phone] Hydrosalpinx (Primary Dx) Social History Tobacco Use [...] Description 04/01/2025 3:00 PM EDT Office Visit [facility] [address] [place] [address] [phone] Elen Mckeon MD [address] [place] [address] [phone] documented as of this encounter Visit Diagnoses Diagnosis Hydrosalpinx- Primary Chronic salpingitis and oophoritis documented in this encounter Care Teams Clinical Advisor Relationship Specialty Start Date End Date Elen Mckeon MD [address] [place] [phone] PCP - General Family Medicine 10/17/15 documented as of this encounter
--- OUTSIDE RECORDS SUMMARY | 2025-03-23 07:59 | XMS_ITS | Encounter Summary ---
Author Organization [employer] Address [address] [facility] [address] [place] [address] Care Team Providers Care Information Technology Assistant Name Role Phone Elen Mckeon MD Primary Care Provider [phone] Encounter Details Date Type Department Care Team (Latest Contact Info) Description 02/25/2025 Results Follow-Up [facility] [address] [place], [place] [phone] Elen Mckeon MD [address] [place], [place] [phone] BI Mammogram Screening Tomosynthesis Bilateral, BI US Breast Limited Left Social History Tobacco Use Types Packs/Day Years [...] Encounter Note - Elen Mckeon MD - 03/08/2025 12:08 PM EDT Abnormal result. Please add her on your list and assist us to follow up. Thank you. * Result Encounter Note - Elen Mckeon MD - 02/25/2025 5:39 PM EDT Abnormal result. Please add her on your list and assist us to follow up. documented in this encounter Plan of Treatment Upcoming Encounters Date Type Department Care Team (Late st Contact Info) Description 04/01/2025 3:00 PM EDT Office Visit [facility] [address] [place] [address] Elen Mckeon MD [address] [place] [address] documented as of this encounter Visit Diagnoses Not on filedocumented in this encounter Additional Health Concerns Assessment Noted Time PHQ-9 Depression Total Score: 0 07/16/19 25 9:55 AM EST documented as of this encounter Care Teams Information Technology Assistant Relationship Specialty Start Date End Date Elen Mckeon MD [address] [place] [address] PCP - General Family Medicine 10/17/15 documented as of this encounter
--- OUTSIDE RECORDS SUMMARY | 2025-03-23 07:59 | XMS_ITS | Encounter Summary ---
Author Organization [employer] Address [address] [place] [address] 7 [place] [address] Care Team Providers Care Internship Name Role Phone Elen Mckeon MD Primary Care Provider [phone] Encounter Details Date Type Department Care Team ([facility] st Contact Info) Description 06/20/2022 Abstract [facility] [address] [place], [place] [phone] Elen Mckeon MD [address] [place], [place] [phone] Social History Tobacco Use Types Packs/Day Years [...] Description 04/01/2025 3:00 PM EDT Office Visit [facility] [address] [place] [address] Elen Mckeon MD [address] [place] [address] documented as of this encounter Visit Diagnoses Not on filedocumented in this encounter Care Teams Internship Relationship Specialty Start Date End Date Elen Mckeon MD [address] [place] [address] [phone] PCP - General Family Medicine 10/17/15 documented as of this encounter
[2025-03-23 08:29] LABS: MANUAL DIFF FLAG NO
[2025-03-23 08:32] LABS: Hematocrit 41.4 % (37.0-47.0); Hemoglobin 13.8 g/dl (12.0-16.0); Imm Gran Abs Auto 0.04 X10*3/uL (0.00-0.03); Imm Gran Pct Auto 0.3 % (0.0-0.4); Lymphocytes Absolute Auto 1.1 X10*3/uL (1.2-4.9); Mean Corpuscular HGB Conc 33.3 g/dl (31.0-35.0); Mean Corpuscular Hemoglobin 26.7 pg (27.0-33.0); Mean Corpuscular Volume 80.1 fL (80.0-98.0); NRBC Abs Auto 0.000 X10*3/uL (0.0-0.012); NRBC Pct Auto 0.0 /100WBC (0.0-0.2); Platelet Count 342 X10*3/uL (160-400); Red Blood Count 5.17 X10*6/uL (4.20-5.50); White Blood Count 12.9 X10*3/uL (4.8-10.8)
--- NOTE | 2025-03-23 08:40 | ED.ABDPAIN ---
HPI - Abdominal Pain General Chief Complaint: Abdominal Pain Stated Complaint: burning sensation abd Time Seen by Provider: 03/23/25 08:39 Source: patient Mode of arrival: ambulatory Limitations: no limitations History of Present Illness ED Provider: CHANDRA LAU PA-C HPI narrative: 44 year old female with pmhx significant for GERD and IBS presents to the ED today for evaluation of abdominal pain which began last night. Pain is localized to epigastric region. Describes this as a burning sensation. Reports pain began when she went to lie down for bed. Pain is currently a 9/10 and has been constant since onset. Reports eating plain rice and vegetables a few hours prior to onset of pain. Admits to one episode of vomiting around 0200 today. Reports history of similar 1-2 years ago. She states she was evaluated by GI at that time and prescribed medications with resolution in symptoms. She states she is no longer on these medications. Denies any history of abdominal surgeries. Denies fever, chills, chest pain, diarrhea, urinary sx. Related Data Home Medications ?Medication ?Instructions ?Recorded ?Confirmed fluticasone propionate 50 1 spray intranasal DAILY 12/21/23 mcg/actuation nasal spray,suspension (Flonase Allergy Relief) Allergies Allergy/AdvReac Type Severity Reaction Status Date / Time No Known Allergies Allergy Verified 03/23/25 07:41 Review of Systems Review of Systems Yes all other systems are reviewed and are negative PMFSH Past Medical History Attestation statement: The following information was validated with the patient. 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 Sexual orientation: Straight/Heterosexual Gender identity: Female Physical Exam ED Vital Signs: Vital Signs - 24 hr 03/23/25 07:40 03/23/25 07:57 03/23/25 08:00 Temperature 98.3 F 98.1 F 98.1 F Pulse Rate 63 64 66 Respiratory Rate 18 14 15 Blood Pressure 137/72 136/64 132/75 Pulse Oximetry 98 98 100 Oxygen Delivery Method Room Air Room Air Room Air 03/23/25 10:00 03/23/25 16:54 Temperature 98.2 F 99.1 F Pulse Rate 60 52 Respiratory Rate 15 18 Blood Pressure 131/71 141/75 H Pulse Oximetry 100 100 Oxygen Delivery Method Room Air Room Air BMI result Body Mass Index 28.9 vital signs stable General: Well appearing, in no acute distress. Skin: Warm, dry, intact. No rashes or lesions. Head: Normocephalic, atraumatic. EENT: Hearing is intact b/l. Conjunctiva clear. PERRLA. EOM intact. Moist mucous membranes.? Cardiac: Chest wall symmetric. RRR Lungs: Normal respiratory effort without accessory muscle use. CTA bilaterally Abdomen: soft, non-tender, non-distended. No rebound tenderness or guarding. Positive BS x4. Back: No midline spinous or paraspinal tenderness. No step off deformity. Ext: Upper and lower extremities atraumatic, without tenderness, deformity, swelling or erythema Neuro: AOx3. Normal speech. Ambulating with steady gait. Psych: Appropriate mood and affect. Responds appropriately to questions. Course Course Course Narrative: 1255 -- CBC showing leukocytosis to 12.9 with left shift. No anemia. H&H stable. Chemistry without acute electrolyte abnormality requiring intervention. No ERNESTINA. Random glucose 118 without gap. Liver function at baseline. Troponin undetectable. Lipase WNL, pancreatitis unlikely. > patient treated with Maalox, , Zofran and Pepcid. Endorses only mild relief from these medications. Given leukocytosis, will add on CT abdomen/pelvis to further evaluate. She has no Garay's sign, I am less likely concerned about GB pathology > 1L IVF ordered in the meantime 5225 -- received call from Radiology. CT abdomen/pelvis shows large gallstone measuring 2.3 x 3 cm with pericholecystic edema concerning for acute cholelithiasis. Incidental findings of left renal interpolar cortical cyst 3.4 x 4 cm, left ovarian cyst 2.2 cm and hiatal hernia. > discussed with general surgeon dr. bean who is currently going to the OR. he will be down to evaluate/ discuss with patient after his procedure. > discussed results with patient. will make her NPO in the mean time. lactic/ blood cultures added. morphine ordered for pain control. zosyn ordered. no concern for sepsis at this time. 1722 -- Dr. Bean evaluated patient at bedside. after discussion with patient, patient will be admitted to the surgical service. dr. bean to place admission orders. > patient is stable at this time. Medical Decision Making Medical Decision Making [facility] Narrative: 44 year old female with pmhx significant for GERD and IBS presents to the ED today for evaluation of abdominal pain which began last night. Vital signs stable. She is generally well-appearing and in no acute distress. Abdomen is soft, nondistended, nontender with both light and deep palpation, active bowel sounds x4. negative garay sign. Differential diagnosis includes gastritis, PUD, GERD, gastroenteritis. Less likely pancreatitis, acute cholecystitis, cholelithiasis, choledocholithiasis, cholangitis. Lower suspicion for ACS. Unlikely acute abdomen. Plan at this time is to obtain basic labs, EKG. Will trial GI cocktail with re-evaluation. Differential Diagnosis Differential Diagnoses: The differential diagnosis associated with the presentation includes as above. Admission/Observation Consideration of admission/observation: Escalation of care including admission/observation considered Consult Healthcare Provider Management of the patient was discussed with: Hat Copyist (general surgeon dr. bean) Lab Data [facility] Lab Attestation statement: I reviewed the patient's lab results. as above. 03/23/25 08:13 03/23/25 09:28 Labs: Lab Results 03/23/25 03/23/25 03/23/25 Range/Units 08:13 09:28 15:08 WBC 12.9 H (4.8-10.8) X10*3/uL RBC 5.17 (4.20-5.50) X10*6/uL Hgb 13.8 (12.0-16.0) g/dl Hct 41.4 (37.0-47.0) % MCV 80.1 (80.0-98.0) fL MCH 26.7 L (27.0-33.0) pg MCHC 33.3 (31.0-35.0) g/dl RDW 12.1 (11.0-16.0) % Plt Count 342 (160-400) X10*3/uL MPV 9.5 (9.4-12.3) fL Immature Gran % (Auto) 0.3 (0.0-0.4) % Neut % (Auto) 86.9 H (45-73) % Lymph % (Auto) 8.6 L (20-40) % [place] % (Auto) 3.9 (2-11) % Eos % (Auto) 0.1 (0-4) % Baso % (Auto) 0.2 (0-2) % Lymph # (Auto) 1.1 L (1.2-4.9) X10*3/uL [place] # (Auto) 0.5 (0.1-1.2) X10*3/uL Eos # (Auto) 0.0 (0.0-0.4) X10*3/uL Baso # (Auto) 0.0 (0.0-0.2) X10*3/uL Abs Immat Gran (auto) 0.04 H (0.00-0.03) X10*3/uL Absolute Neuts (auto) 11.2 H (2.0-8.3) x10*3/uL Absolute Nucleated RBC 0.000 (0.0-0.012) X10*3/uL Nucleated RBC % (auto) 0.0 (0.0-0.2) /100WBC Sodium 135 (135-145) mmol/L Potassium 3.8 (3.3-5.1) mmol/L Chloride 104 (96-108) mmol/L Carbon Dioxide 22 (22-29) mmol/L Anion Gap 13 (12-20) BUN 8 L (9-16) mg/dL Creatinine 0.51 (0.5-1.4) mg/dL Estim Creat Clear Calc 133.7 Estimated GFR > 60 Random Glucose 118 H (60-115) mg/dL Lactic Acid 1.8 (0.5-2.0) mmol/L Calcium 8.6 D (8.4-10.2) mg/dL Magnesium 2.0 (1.6-2.6) mg/dL Total Bilirubin 0.4 (0.0-1.0) mg/dL AST 21 (5-31) U/L ALT 20 (0-31) U/L Alkaline Phosphatase 74 (39-117) U/L Troponin I High Sens < 2.7 (<3.5-17.0) ng/L Total Protein 7.3 (6.5-8.0) g/dL Albumin 4.4 (3.5-5.0) g/dL Lipase 12 (8-78) U/L Beta HCG, Quant < 2 mIU/mL Independent Interpretation I performed an independent interpretation of an: EKG and CT Scan Interpretation: ct a/p showing large gallstone EKG showing sinus bradycardia with a rate of 55 beats per minute, QT 440, QTC 420, no acute ischemic changes or ST elevations. Radiology Impression Discussion of test interpretation with radiology: I have reviewed the radiologist's reading. Radiologist Impression: Reason for Exam: epigastric pain, white count, vomiting ADDENDUMThis document has been electronically signed by: Chris Topete MD on 03/23/2025 14:41:35 ADDENDUM: This report was discussed with Tash ARROYO on Mar 23, 2025 14:43:00 EDT. This document has been electronically signed by: Dea Pena on 03/23/2025 14:43:35 Addendum Dictated By: Chris Topete MD Addendum Signed By: <Electronically signed by Chris Topete MD in OV> 03/23/25 144 Addendum Cosigned By: DD/ TD/TT: 03/23/25 CLINICAL HISTORY: epigastric pain, white count, vomiting CT abdomen and pelvis with contrast Comparison: None provided Findings: Minimal bibasilar dependent subsegmental atelectasis. Hiatal hernia. Cholelithiasis; single stone, 2.3 x 3 cm. . Pericholecystic edema. Left renal interpolar region cortical low-attenuation lesion, 3.4 x 4 cm; cysts. No bowel obstruction, pneumoperitoneum, or pneumatosis. The appendix within normal limits. Left ovarian low-attenuation lesion, 2.2 cm. The bones are intact. L5-S1: Moderate DJD. IMPRESSION: 1. Large gallstone (2.3 x 3 cm) with pericholecystic edema, concerning for acute cholecystitis. 2. Left renal interpolar cortical cyst, 3.4 x 4 cm. 3. Left ovarian cyst, 2.2 cm. 4. Hiatal hernia. This document has been electronically signed by: Chris Topete MD on 03/23/2025 14:41:35 External Record Review External record reviewed: Inpatient record, Office record and Outpatient record Prescription Management I considered prescription management with: Other (famotidine, pantoprazole) Chronic Conditions Patient?s care impacted by: Other (GERD) Social Determinants Patient?s care significantly limited by Social Determinants of Health including: Other Social Determinant of Health Medications Administered Discontinued Medications Generic Name Dose Route Start Last Admin Trade Name Freq PRN Reason Stop Dose Admin Al Hydroxide/Mg Hydroxide 30 ml 03/23/25 08:50 03/23/25 09:06 Magnesium Hydrox/Alum Hydrox 30 Ml Oral.Susp PO 03/23/25 08:51 30 ml ONCE ONE Administration Belladonna Alkaloids/Phenobarbital 10 ml 03/23/25 08:50 03/23/25 09:06 Phenobarb/Hyoscy/Atropine/Scop 10 Ml Elixir PO 03/23/25 08:51 10 ml ONCE ONE Administration Famotidine 20 mg 03/23/25 10:17 03/23/25 10:55 Famotidine 20 Mg Tablet PO 03/23/25 10:18 20 mg ONCE ONE Administration Sodium Chloride 1,000 mls @ 999 mls/hr 03/23/25 12:30 03/23/25 15:29 Ns IV 03/23/25 13:30 Infused .Q1H1M ALAINA Infusion Piperacillin Sod/Tazobactam 100 mls @ 200 mls/hr 03/23/25 14:45 03/23/25 16:19 Sod 4.5 gm/ Sodium Chloride IV 03/23/25 15:14 Infused ONCE ONE Infusion Iohexol 100 ml 03/23/25 14:16 03/23/25 14:16 Iohexol 350 Mg/Ml 100 Ml Infus..Btl IV 03/23/25 14:17 85 ml ONCE ONE Administration Morphine Sulfate 4 mg 03/23/25 14:46 03/23/25 15:28 Morphine Sulfate 4 Mg/Ml Cartridge IVPUSH 03/23/25 14:47 4 mg ONCE ONE Administration Protocol Ondansetron HCl 4 mg 03/23/25 08:50 03/23/25 09:06 Ondansetron Odt 4 Mg Tab.Andres TRANSLINGU 03/23/25 08:51 4 mg ONCE ONE Administration Critical Care Time Critical Care Time Critical Care Time: Yes Total Critical Care Time: 48 Attestation: Critical care time in the amount of 48 minutes has been provided to the patient in terms of direct patient care, frequent reevaluation on IV morphine, consultation with general surgery, review and interpretation of medical data and results, and management of potentially life-threatening conditions. This is all outside of any medical procedures. Discharge Plan Discharge Clinical Impression: Acute cholecystitis Patient Disposition: Admitted As Inpatient Print Language: Yi
[2025-03-23] MEDS: Magnesium Hydrox/Alum Hydrox 30 ML ORAL.SUSP PO (09:06)
[2025-03-23] MEDS: PHENobarb/Hyoscy/Atropine/Scop 10 ML ELIXIR PO (09:06)
[2025-03-23 09:54] LABS: Alanine Aminotransferase 20 U/L (0-31); Albumin Level 4.4 g/dL (3.5-5.0); Alkaline Phosphatase 74 U/L (39-117); Anion Gap 13 (12-20); Aspartate Amino Transferase 21 U/L (5-31); Blood Urea Nitrogen 8 mg/dL (9-16); Calcium 8.6 mg/dL (8.4-10.2); Carbon Dioxide 22 mmol/L (22-29); Chloride 104 mmol/L (96-108); Creatinine Clr Calc Pharmacy 133.7; Estimated Glomerular Filt Rate > 60; Lipase 12 U/L (8-78); Magnesium 2.0 mg/dL (1.6-2.6); Potassium 3.8 mmol/L (3.3-5.1); Sodium 135 mmol/L (135-145); Total Protein 7.3 g/dL (6.5-8.0)
[2025-03-23 10:10] LABS: Troponin-I High Sensitivity < 2.7 ng/L (<3.5-17.0)
[2025-03-23] MEDS: iohexoL 350 MG/ML 100 ML INFUS..BTL IV (14:16)
--- NOTE | 2025-03-23 17:39 | P.HPGS_ITS ---
History of Present Illness History of Present Illness Date of Service: 03/25/25 Chief complaint: Acute Cholecystitis Narrative: Jose Rock is a 44 year old female the ED for epigastric pain. She says that this started sometime late yesterday afternoon. She says that this has constant. Sh coni describes a little bit of nausea but no vomiting She denies any fever or chills She describes similar episode about 2 months ago but of a much lesser intensity She actually had been seeing the skilled nursing facility counselor in the past for chronic epigastric pain and had been on PPIs before. Review of Systems Constitutional: Constitutional: Denies chills and Denies fever(s) Cardiovascular: Cardiovascular: Denies chest pain, Denies dyspnea and Denies dyspnea on exertion Respiratory: Respiratory: Denies cough, Denies dyspnea and Denies dyspnea on exertion Gastrointestinal: Gastrointestinal: Denies hematochezia and Denies change in bowel habits Genitourinary: Genitourinary: Denies hematuria Musculoskeletal: Musculoskeletal: Denies back pain and Denies limited range of motion Neurologic: Denies focal weakness and Denies convulsions Psychiatric: Psychiatric: Denies depression and Denies mood swings REPLACED BY [facility] Past Medical History Medical History IBS (irritable bowel syndrome) GERD (gastroesophageal reflux disease) Surgical History Surgical History History of esophagogastroduodenoscopy (EGD) Social History Social History Household Members: Spouse and Children Do you presently have visiting nurse or other home services: No Alcohol intake: never Patient Tobacco Use Status: Never used Tobacco Smoked in Last 30 Days: No Use of substances other than those prescribed or required for medical reasons: No Currently Displaying Signs/Symptoms of Drug Intoxication Withdrawal: No Have you been hit, kicked, punched, or otherwise hurt by someone within the past year? 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 Sexual orientation: Straight/Heterosexual Gender identity: Female Meds Allergies Allergy/AdvReac Type Severity Reaction Status Date / Time No Known Allergies Allergy Verified 03/23/25 07:41 Home Medications ?Medication ?Instructions ?Recorded ?Confirmed ?Last Taken ?Type fluticasone propionate 50 1 spray intranasal DAILY 07/0303/23/25 Unknown History mcg/actuation nasal spray,suspension (Flonase Allergy Relief) acetaminophen 325 mg tablet 650 mg PO QID PRN for pain 03/23/25 03/23/25 Unknown History Physical Exam Vital Signs: Vital Signs: Last Vital Signs Temp 99.1 F 03/23/25 16:54 Pulse 52 03/23/25 16:54 Resp 18 03/23/25 16:54 BP 141/75 H 03/23/25 16:54 Pulse Ox 100 03/23/25 16:54 O2 Del Method Room Air 03/23/25 16:54 BMI result Body Mass Index 28.9 Const: General: comfortable and no acute distress Orientation/consciousness: patient oriented x3 Eyes: Other: Anicteric Neck: Neck: Yes no lymphadenopathy Resp: Auscultation: clear to auscultation bilaterally Cardio: Rhythm: regular rhythm GI: Other: Mild epigastric tenderness Palpation (GI): Soft to palpation, Tenderness to palpation present (GI), no guarding and not rigid Neuro: General: patient oriented x3 Results Results Labs: Short CBC 03/23/25 Range/Units 08:13 WBC 12.9 H (4.8-10.8) X10*3/uL Hgb 13.8 (12.0-16.0) g/dl Hct 41.4 (37.0-47.0) % Plt Count 342 (160-400) X10*3/uL BMP 03/23/25 09:28 Sodium 135 Potassium 3.8 Chloride 104 Carbon Dioxide 22 BUN 8 L Creatinine 0.51 Calcium 8.6 D Liver Function 03/23/25 Range/Units 09:28 Total Bilirubin 0.4 (0.0-1.0) mg/dL AST 21 (5-31) U/L ALT 20 (0-31) U/L Alkaline Phosphatase 74 (39-117) U/L Albumin 4.4 (3.5-5.0) g/dL Additional studies: IMPRESSION: 1. Large gallstone (2.3 x 3 cm) with pericholecystic edema, concerning for acute cholecystitis. 2. Left renal interpolar cortical cyst, 3.4 x 4 cm. 3. Left ovarian cyst, 2.2 cm. 4. Hiatal hernia. Assessment and Plan (1) Acute cholecystitis: Status: Acute [age] year old female here in the ER for epigastric pain. She had a CAT scan done showing pericholecystic edema with gallstones. This has suggestive of acute cholecystitis Interestingly, she does not have significant tenderness or Garay's sign to the right upper quadrant on exam now. However, she does state that her pain has been constant on the epigastric area Her LFTs are normal . In view of the the CAT scan findings I explained to the patient and her family option of proceeding with cholecystectomy. I explained the technique of laparoscopic cholecystectomy and possible open cholecystectomy. I reviewed the risks including but not limited to bleeding, infections, injury to other organs including bowel, liver and the bile ducts, bile leak, retained stones, as well as the benefits and alternatives The patient and her state that they would like to think this over. They said that they are not certain if they want to proceed with surgery at this time. I will admit the patient for IV antibiotics. I will review the options with them again in the morning and see if they agree to proceed with cholecystectomy depending on her symptoms She otherwise appears comfortable and is hemodynamically stable. Quality Stroke Does the patient have a stroke diagnosis?: No VTE Prior VTE?: No VTE Risk Level:: Medical - moderate - high VTE Device Contraindication: N/A - Device Ordered VTE Drug Contraindication: N/A - Med Ordered Procedures Date of Service Date of Service: 03/25/25
--- NOTE | 2025-03-23 17:59 | PHA.MEDREC ---
Addendum entered by Sarwat Lincoln, Danisha 03/23/25 18:34: med rec checked by [facility] Original Note: Pharmacy Consult ? Medication Reconciliation Pharmacy has completed the medication reconciliation. Confirmed Medication list with patient.
[2025-03-23] MEDS: Lactated Ringers 1,000 ML 100 ML IVCONT (18:43)
[2025-03-23] MEDS: 0.9 % Sodium Chloride Flush 3 ML SYRINGE IVFLUSH (22:26)
[2025-03-24 03:30] VITALS: BP 131/71; PULSE 58; RESP 18; TEMP 36.2; O2SAT 98
[2025-03-24] MEDS: Lactated Ringers 1,000 ML 100 ML IVCONT ×2 (05:26→15:41)
[2025-03-24 06:29] LABS: Hematocrit 39.9 % (37.0-47.0); Hemoglobin 13.3 g/dl (12.0-16.0); Mean Corpuscular HGB Conc 33.3 g/dl (31.0-35.0); Mean Corpuscular Hemoglobin 26.7 pg (27.0-33.0); Mean Corpuscular Volume 80.1 fL (80.0-98.0); NRBC Abs Auto 0.000 X10*3/uL (0.0-0.012); NRBC Pct Auto 0.0 /100WBC (0.0-0.2); Platelet Count 339 X10*3/uL (160-400); Red Blood Count 4.98 X10*6/uL (4.20-5.50); White Blood Count 19.4 X10*3/uL (4.8-10.8)
[2025-03-24 06:52] LABS: Alanine Aminotransferase 27 U/L (0-31); Albumin Level 4.0 g/dL (3.5-5.0); Alkaline Phosphatase 78 U/L (39-117); Anion Gap 12 (12-20); Aspartate Amino Transferase 39 U/L (5-31); Blood Urea Nitrogen 5 mg/dL (9-16); Calcium 8.5 mg/dL (8.4-10.2); Carbon Dioxide 26 mmol/L (22-29); Chloride 103 mmol/L (96-108); Creatinine Clr Calc Pharmacy 108.2; Estimated Glomerular Filt Rate > 60; Potassium 3.6 mmol/L (3.3-5.1); Sodium 137 mmol/L (135-145); Total Protein 7.1 g/dL (6.5-8.0)
[2025-03-24 07:40] VITALS: BP 131/76; PULSE 55; RESP 16; TEMP 36.2; O2SAT 96
--- NOTE | 2025-03-24 10:00 | P.PNGS_ITS ---
Subjective Subjective Date of Service: 03/25/25 Interval history: States she feels better this morning Some low intensity epigastric pain, steady No nausea or vomiting No fever Physical Exam 2 Vital Signs: Vital Signs: Last Vital Signs Temp 97.2 F 03/24/25 07:40 Pulse 55 03/24/25 07:40 Resp 16 03/24/25 07:40 BP 131/76 03/24/25 07:40 Pulse Ox 96 03/24/25 07:40 O2 Del Method Room Air 03/24/25 07:40 BMI result Body Mass Index 28.9 Const: Other: Looks well General: comfortable and no acute distress Resp: Effort & Inspection: normal respiratory effort Cardio: Rate: regular rate GI: Other: No Garay's sign, no significant tenderness in the right upper quadrant Palpation (GI): Soft to palpation, not firm, nontender and no guarding Objective Data Active Medications Acetaminophen (Acetaminophen 325 Mg Tablet) 650 mg PO Q6H PRN PRN Reason: Pain, Mild 1-3,fever,headache Heparin Sodium (Porcine) (Heparin Sodium,Porcine 5,000 Unit/Ml Vial) 5,000 unit SUBCUT Q12H [facility] Lactated Ringer's (Lr) 1,000 mls @ 100 mls/hr IVCONT .Q10H [facility] Last Admin: 03/24/25 05:26 Dose: 100 mls/hr Documented By: TY Piperacillin Sod/Tazobactam (Sod 3.375 gm/ Sodium Chloride) 50 mls @ 100 mls/hr IV Q6H [facility] Last Admin: 03/24/25 09:55 Dose: 100 mls/hr Documented By: STEPHANIE Melatonin (Melatonin 3 Mg Tablet) 6 mg PO BEDTIME PRN PRN Reason: Insomnia Morphine Sulfate (Morphine Sulfate 4 Mg/Ml Cartridge) 3 mg IVPUSH Q4H PRN; Protocol PRN Reason: Pain, Severe (Pain Scale 7-10) Last Admin: 03/23/25 20:47 Dose: 3 mg Documented By: VADIM Ondansetron HCl (Ondansetron Hcl 4 Mg/2 Ml Vial) 4 mg IVPUSH Q6H PRN PRN Reason: nausea Pantoprazole Sodium (Pantoprazole Sodium 40 Mg/10 Ml Vial) 40 mg IVPUSH DAILY [facility] Last Admin: 03/24/25 09:55 Dose: 40 mg Documented By: STEPHANIE Sodium Chloride (0.9 % Sodium Chloride Flush 3 Ml Syringe) 3 ml IVFLUSH QSHIFT [facility] Last Admin: 03/24/25 09:45 Dose: Not Given Documented By: STEPHANIE Non-Admin Reason: IV Running Labs 03/25/25 05:44 03/24/25 06:13 Labs: Laboratory Results - last 24 hr 03/23/25 03/23/25 03/24/25 09:28 15:08 06:13 MCV 80.1 MCH 26.7 L MCHC 33.3 RDW 12.2 Plt Count 339 MPV 9.1 L Absolute Nucleated RBC 0.000 Nucleated RBC % (auto) 0.0 Anion Gap 12 Estim Creat Clear Calc 108.2 Estimated GFR > 60 Random Glucose 141 H Lactic Acid 1.8 Calcium 8.5 Total Bilirubin 0.8 Direct Bilirubin 0.3 AST 39 H ALT 27 Alkaline Phosphatase 78 Total Protein 7.1 Albumin 4.0 Beta HCG, Quant < 2 Procedures Date of Service Date of Service: 03/25/25 Progress Note: A&P Assessment and plan (1) Acute cholecystitis: Status: Acute Assessment and Plan: Admitted last night for epigastric pain with suggestion of acute cholecystitis on CAT scan States she feels better Interestingly, still no significant tenderness in the right upper quadrant on no Garay's sign No fever White count elevated I had multiple discussions with her today with her I explained the technique of laparoscopic cholecystectomy, possible open Reviewed risks of bleeding, infections, injury to other organs including bowel and the liver and the bile ducts I explained what to expect postoperatively She states that does not have any tenderness and she feels much better She wants to hold off on surgery today because she feels better and denies tenderness Says she will decide again tomorrow morning She understands risk of recurrent symptoms of gallbladder disease Clinically looks well LFTs normal We will continue to follow closely today Her was with her and states that we will re-evaluate tomorrow morning Time Spent With Patient Time: Total time managing care of this patient today ____ minutes. Quality Stroke Does the patient have a stroke diagnosis?: No VTE Prior VTE?: No VTE Risk Level:: Medical - moderate - high VTE Device Contraindication: N/A - Device Ordered VTE Drug Contraindication: N/A - Med Ordered
--- NOTE | 2025-03-24 12:03 | MHC.CM.PN ---
DX Acute Cholecystitis Plan O.R. Tuesday for Cholecystectomy Lives with spouse and dtr She is independent with all functional mobility No DME DP Home self care. She has arranged for her spouse to provide transportation home.
--- NOTE | 2025-03-24 13:24 | PM.EVENT ---
Event Note Date of Service: 03/24/25 Event Note: Seen on afternoon rounds She says he is comfortable Low intensity epigastric pain, no tenderness Has not had any morphine since last night Looks well Abdomen is soft and benign CAT scan does suggest cholecystitis She did not want to proceed with cholecystectomy today She says she will she does today and we will decide again tomorrow morning Continue current care Family involved with discussions Time Spent With Patient Time: Total time managing care of this patient today ____ minutes.
[2025-03-24 15:30] VITALS: BP 128/75; PULSE 68; RESP 18; TEMP 36.6; O2SAT 98
[2025-03-24 20:00] VITALS: BP 135/74; PULSE 66; RESP 18; TEMP 36.9; O2SAT 97
[2025-03-24] MEDS: 0.9 % Sodium Chloride Flush 3 ML SYRINGE IVFLUSH (21:25)
[2025-03-25] VITALS (10 sets, daily range): BP systolic 110–130; BP diastolic 51–72; PULSE 60–94; RESP 12–19; TEMP 36.1–36.7; O2SAT 94–100
[2025-03-25] MEDS: Lactated Ringers 1,000 ML 100 ML IVCONT ×3 (03:09→19:33)
[2025-03-25 06:13] LABS: Hematocrit 38.7 % (37.0-47.0); Hemoglobin 12.6 g/dl (12.0-16.0); Mean Corpuscular HGB Conc 32.6 g/dl (31.0-35.0); Mean Corpuscular Hemoglobin 26.1 pg (27.0-33.0); Mean Corpuscular Volume 80.3 fL (80.0-98.0); NRBC Abs Auto 0.000 X10*3/uL (0.0-0.012); NRBC Pct Auto 0.0 /100WBC (0.0-0.2); Platelet Count 315 X10*3/uL (160-400); Red Blood Count 4.82 X10*6/uL (4.20-5.50); White Blood Count 19.0 X10*3/uL (4.8-10.8)
--- NOTE | 2025-03-25 07:49 | PM.PNGS ---
Subjective Subjective Date of Service: 03/25/25 <Nereyda Hernandez PA-C - Last Filed: 03/25/25 07:54> 03/25/25 <Blane Sr MD - Last Filed: 03/25/25 08:07> Interval history: States she still feels overall better and denies abd pain. Tolerated broth and jello yesterday without nausea/pain. <Nereyda Hernandez PA-C - Last Filed: 03/25/25 07:54> Physical Exam Vital Signs: Vital Signs: Last Vital Signs Temp 97.7 F 03/25/25 07:18 Pulse 60 03/25/25 07:18 Resp 18 03/25/25 07:18 BP 130/70 03/25/25 07:18 Pulse Ox 99 03/25/25 07:18 O2 Del Method Room Air 03/25/25 07:18 BMI result Body Mass Index 28.9 <Nereyda Hernandez PA-C - Last Filed: 03/25/25 07:54> Const: General: comfortable, no acute distress and alert <Nereyda Hernandez PA-C - Last Filed: 03/25/25 07:54> Orientation/consciousness: patient oriented x3 <SHARON Snyder Last Filed: 03/25/25 07:54> Resp: Effort & Inspection: normal respiratory effort <SHARON Snyder Last Filed: 03/25/25 07:54> GI: Inspection: Yes normal to inspection and No distended <Nereyda Hernandez PA-C - Last Filed: 03/25/25 07:54> Palpation (GI): Soft to palpation, Tenderness to palpation present (GI) (?very mild tenderness to deep palpation) Garay's sign negative and no guarding <SHARON Snyder Last Filed: 03/25/25 07:54> Skin: General skin exam: no rashes or lesions noted and no jaundice <SHARON Snyder Last Filed: 03/25/25 07:54> Neuro: General: patient oriented x3 and moves all extremities <SHARON Snyder Last Filed: 03/25/25 07:54> Objective Data Active Medications Acetaminophen (Acetaminophen 325 Mg Tablet) 650 mg PO Q6H PRN PRN Reason: Pain, Mild 1-3,fever,headache Heparin Sodium (Porcine) (Heparin Sodium,Porcine 5,000 Unit/Ml Vial) 5,000 unit SUBCUT Q12H [facility] Last Admin: 03/24/25 21:23 Dose: Not Given Documented By: DIVYA Non-Admin Reason: procedure in AM< Lactated Ringer's (Lr) 1,000 mls @ 100 mls/hr IVCONT .Q10H [facility] Last Infusion: 03/25/25 03:52 Dose: 100 mls/hr Documented By: DIVYA Piperacillin Sod/Tazobactam (Sod 3.375 gm/ Sodium Chloride) 50 mls @ 100 mls/hr IV Q6H [facility] Last Infusion: 03/25/25 03:52 Dose: Infused Documented By: DIVYA Melatonin (Melatonin 3 Mg Tablet) 6 mg PO BEDTIME PRN PRN Reason: Insomnia Morphine Sulfate (Morphine Sulfate 4 Mg/Ml Cartridge) 3 mg IVPUSH Q4H PRN; Protocol PRN Reason: Pain, Severe (Pain Scale 7-10) Last Admin: 03/23/25 20:47 Dose: 3 mg Documented By: VADIM Ondansetron HCl (Ondansetron Hcl 4 Mg/2 Ml Vial) 4 mg IVPUSH Q6H PRN PRN Reason: nausea Pantoprazole Sodium (Pantoprazole Sodium 40 Mg/10 Ml Vial) 40 mg IVPUSH DAILY [facility] Last Admin: 03/24/25 09:55 Dose: 40 mg Documented By: STEPHANIE Sodium Chloride (0.9 % Sodium Chloride Flush 3 Ml Syringe) 3 ml IVFLUSH QSHIFT [facility] Last Admin: 03/25/25 07:09 Dose: Not Given Documented By: TERRELL Non-Admin Reason: IV Running <Nereyda Hernandez PA-C - Last Filed: 03/25/25 07:54> Labs CBC & Chem 7: 03/25/25 05:44 03/24/25 06:13 <Nereyda Hernandez PA-C - Last Filed: 03/25/25 07:54> Labs: Laboratory Results - last 24 hr 03/25/25 05:44 MCV 80.3 MCH 26.1 L MCHC 32.6 RDW 12.2 Plt Count 315 MPV 9.6 Absolute Nucleated RBC 0.000 Nucleated RBC % (auto) 0.0 <Nereyda Hernandez PA-C - Last Filed: 03/25/25 07:54> Microbiology Microbiology Results: Microbiology 03/23/25 15:21 Blood Culture - Preliminary Blood - Venous No growth after 24 hours. 03/23/25 15:08 Blood Culture - Preliminary Blood - Venous No growth after 24 hours. <Nereyda Heranndez PA-C - Last Filed: 03/25/25 07:54> Procedures Date of Service Date of Service: 03/25/25 <Nereyda Hernandez PA-C - Last Filed: 03/25/25 07:54> 03/25/25 <Blane Sr MD - Last Filed: 03/25/25 08:07> Progress Note: A&P Assessment and plan (1) Acute cholecystitis: Status: Acute <Nereyda Hernandez PA-C - Last Filed: 03/25/25 07:54> Assessment and Plan: She says her pain has continued to improve Abdomen is soft, benign, no Garay's sign I had a long discussion with the patient and her at bedside I reviewed with them the technique of laparoscopic cholecystectomy and possible open I reviewed the risks of bleeding, infections, bowel injury, injury today bile duct and liver, retained stones, bile leak, as well as the benefits and alternatives She seems to be doing better but I explained to them that she can have recurrent symptoms down the line After a prolonged discussion, the patient says that she will go ahead with the surgery today <Blane Sr MD - Last Filed: 03/25/25 08:07> Assessment and Plan: Admitted with acute cholecystitis, chose nonoperative measures. On IV zosyn. Continues to report feeling overall improved and denies pain. Her WBC count however continues to hover at 19. Discussed she has had two full days of IV abx and at this point would expect improvement in her leukocytosis and therefore surgical intervention may be necessary. Patient and still remain hesitant about proceeding with surgery. Would anticipate that if we fed her solid food, she would have recurrence of the pain and then surgery would be delayed another day. THey are still thinking about this. Cont IVF, IV abx, NPO status. <Nereyda Hernandez PA-C - Last Filed: 03/25/25 07:54> Time Spent With Patient Time: Total time managing care of this patient today ____ minutes. <Nereyda Hernandez PA-C - Last Filed: 03/25/25 07:54> Quality Stroke Does the patient have a stroke diagnosis?: No <Nereyda Hernandez PA-C - Last Filed: 03/25/25 07:54> VTE Prior VTE?: No <Nereyda Hernandez PA-C - Last Filed: 03/25/25 07:54> VTE Risk Level:: Medical - moderate - high <Nereyda Hernandez PA-C - Last Filed: 03/25/25 07:54> VTE Device Contraindication: N/A - Device Ordered <Nereyda Hernandez PA-C - Last Filed: 03/25/25 07:54> VTE Drug Contraindication: N/A - Med Ordered <Nereyda Hernandez PA-C - Last Filed: 03/25/25 07:54>
--- NOTE | 2025-03-25 08:35 | HO.ANESPROP2 ---
Documented by User: Wanda Jovel NP 03/25/25 08:35 HPI - Anesthesia Eval Consult details Narrative: 44 yr old female for Cholecystectomy Laparoscopic,possible open PMFSH Active Problems Active Problems: All Active Problems (Updated 03/23/25 @ 14:55 by CRUZ Gonzales) Acute cholecystitis (Acute) Encounter for well woman exam with routine gynecological exam (Acute) MCL sprain of left knee (Acute) MCL sprain of right knee (Acute) Patellar dislocation (Acute) Fibroid, uterine (Acute) Past Medical History Medical History IBS (irritable bowel syndrome) GERD (gastroesophageal reflux disease) Family History Family history of problems with anesthesia: No Surgical History Surgical History History of esophagogastroduodenoscopy (EGD) History of Problems with Anesthesia: No Social History Social History Household Members: Spouse and Children Are you a primary healthcare recruiter to a significant other at home: No Do you presently have visiting nurse or other home services: No Alcohol intake: never Patient Tobacco Use Status: Never used Tobacco Smoked in Last 30 Days: No Use of substances other than those prescribed or required for medical reasons: No Currently Displaying Signs/Symptoms of Drug Intoxication Withdrawal: No Have you been hit, kicked, punched, or otherwise hurt by someone within the past year? If so, by whom?: No Do you feel safe in your current relationship?: Yes Is there a partner from a previous relationship who is making you feel unsafe now?: No Are you made to feel afraid or neglected: No Are you DNR?: No Advance Directives: No Advance Directives Information Provided: No Do you have a plan to hurt others: No Plan Recently lost weight without trying: No Eating poorly because of decreased appetite: No Nutrition Risks: No Nutritional Risk Patient : No FDLMP: 03/04/2025 : No Poor oral hygiene: No service: No Current occupational status: employed Current occupation: [employer] Sexual orientation: Straight/Heterosexual Gender identity: Female Meds Allergies Allergy/AdvReac Type Severity Reaction Status Date / Time No Known Allergies Allergy Verified 03/23/25 07:41 Active Medications: Current Medications Acetaminophen (Acetaminophen 325 Mg Tablet) 650 mg PO Q6H PRN PRN Reason: Pain, Mild 1-3,fever,headache Heparin Sodium (Porcine) (Heparin Sodium,Porcine 5,000 Unit/Ml Vial) 5,000 unit SUBCUT Q12H [facility] Last Admin: 03/24/25 21:23 Dose: Not Given Lactated Ringer's (Lr) 1,000 mls @ 100 mls/hr IVCONT .Q10H [facility] Last Admin: 03/25/25 08:05 Dose: 100 mls/hr Piperacillin Sod/Tazobactam (Sod 3.375 gm/ Sodium Chloride) 50 mls @ 100 mls/hr IV Q6H [facility] Last Infusion: 03/25/25 03:52 Dose: Infused Melatonin (Melatonin 3 Mg Tablet) 6 mg PO BEDTIME PRN PRN Reason: Insomnia Morphine Sulfate (Morphine Sulfate 4 Mg/Ml Cartridge) 3 mg IVPUSH Q4H PRN; Protocol PRN Reason: Pain, Severe (Pain Scale 7-10) Last Admin: 03/23/25 20:47 Dose: 3 mg Ondansetron HCl (Ondansetron Hcl 4 Mg/2 Ml Vial) 4 mg IVPUSH Q6H PRN PRN Reason: nausea Pantoprazole Sodium (Pantoprazole Sodium 40 Mg/10 Ml Vial) 40 mg IVPUSH DAILY [facility] Last Admin: 03/25/25 08:11 Dose: 40 mg Sodium Chloride (0.9 % Sodium Chloride Flush 3 Ml Syringe) 3 ml IVFLUSH QSHIFT [facility] Last Admin: 03/25/25 07:09 Dose: Not Given Home Medications ?Medication ?Instructions ?Recorded ?Confirmed ?Last Taken ?Type fluticasone propionate 50 1 spray intranasal DAILY 12/21/23 03/23/25 Unknown History mcg/actuation nasal spray,suspension (Flonase Allergy Relief) acetaminophen 325 mg tablet 650 mg PO QID PRN for pain 03/23/25 03/23/25 Unknown History Exam Height,Weight and Vital Signs: Height 5 ft 2.2 in Weight 72.2 kg Last Vital Signs Temp 97.7 F 03/25/25 07:18 Pulse 60 03/25/25 07:18 Resp 18 03/25/25 07:18 BP 130/70 03/25/25 07:18 Pulse Ox 99 03/25/25 07:18 O2 Del Method Room Air 03/25/25 07:18 Pertinent Lab Results Pertinent Lab Results: Laboratory Tests 03/23/25 03/23/25 03/23/25 08:13 09:28 15:08 WBC 12.9 H RBC 5.17 Hgb 13.8 Hct 41.4 MCV 80.1 MCH 26.7 L MCHC 33.3 RDW 12.1 Plt Count 342 MPV 9.5 Immature Gran % (Auto) 0.3 Neut % (Auto) 86.9 H Lymph % (Auto) 8.6 L Glascock % (Auto) 3.9 Eos % (Auto) 0.1 Baso % (Auto) 0.2 Lymph # (Auto) 1.1 L Gl[place]ock # (Auto) 0.5 Eos # (Auto) 0.0 Baso # (Auto) 0.0 Abs Immat Gran (auto) 0.04 H Absolute Neuts (auto) 11.2 H Absolute Nucleated RBC 0.000 Nucleated RBC % (auto) 0.0 Sodium 135 Potassium 3.8 Chloride 104 Carbon Dioxide 22 Anion Gap 13 BUN 8 L Creatinine 0.51 Estim Creat Clear Calc 133.7 Estimated GFR > 60 Random Glucose 118 H Lactic Acid 1.8 Calcium 8.6 D Magnesium 2.0 Total Bilirubin 0.4 Direct Bilirubin AST 21 ALT 20 Alkaline Phosphatase 74 Troponin I High Sens < 2.7 Total Protein 7.3 Albumin 4.4 Lipase 12 Beta HCG, Quant < 2 03/24/25 03/25/25 06:13 05:44 WBC 19.4 H 19.0 H RBC 4.98 4.82 Hgb 13.3 12.6 Hct 39.9 38.7 MCV 80.1 80.3 MCH 26.7 L 26.1 L MCHC 33.3 32.6 RDW 12.2 12.2 Plt Count 339 315 MPV 9.1 L 9.6 Immature Gran % (Auto) Neut % (Auto) Lymph % (Auto) Glascock % (Auto) Eos % (Auto) Baso % (Auto) Lymph # (Auto) Glascock # (Auto) Eos # (Auto) Baso # (Auto) Abs Immat Gran (auto) Absolute Neuts (auto) Absolute Nucleated RBC 0.000 0.000 Nucleated RBC % (auto) 0.0 0.0 Sodium 137 Potassium 3.6 Chloride 103 Carbon Dioxide 26 Anion Gap 12 BUN 5 L Creatinine 0.63 Estim Creat Clear Calc 108.2 Estimated GFR > 60 Random Glucose 141 H Lactic Acid Calcium 8.5 Magnesium Total Bilirubin 0.8 Direct Bilirubin 0.3 AST 39 H ALT 27 Alkaline Phosphatase 78 Troponin I High Sens Total Protein 7.1 Albumin 4.0 Lipase Beta HCG, Quant Assessment and Plan Final Anesthetic Review Family History of Problems with Anesthesia: No History of Problems with Anesthesia: No Documented by User: Shayy Cabrera MD 03/25/25 13:08 [facility] Past Medical History Medical History IBS (irritable bowel syndrome) GERD (gastroesophageal reflux disease) Surgical History Surgical History History of esophagogastroduodenoscopy (EGD) Social History Social History Household Members: Spouse and Children Are you a primary healthcare recruiter to a significant other at home: No Do you presently have visiting nurse or other home services: No Alcohol intake: never Patient Tobacco Use Status: Never used Tobacco Smoked in Last 30 Days: No Use of substances other than those prescribed or required for medical reasons: No Currently Displaying Signs/Symptoms of Drug Intoxication Withdrawal: No Have you been hit, kicked, punched, or otherwise hurt by someone within the past year? If so, by whom?: No Do you feel safe in your current relationship?: Yes Is there a partner from a previous relationship who is making you feel unsafe now?: No Are you made to feel afraid or neglected: No Are you DNR?: No Advance Directives: No Advance Directives Information Provided: No Do you have a plan to hurt others: No Plan Recently lost weight without trying: No Eating poorly because of decreased appetite: No Nutrition Risks: No Nutritional Risk Patient : No FDLMP: 03/04/2025 : No Poor oral hygiene: No service: No Current occupational status: employed Current occupation: [employer] Sexual orientation: Straight/Heterosexual Gender identity: Female Meds Allergies Allergy/AdvReac Type Severity Reaction Status Date / Time No Known Allergies Allergy Verified 03/23/25 07:41 Home Medications ?Medication ?Instructions ?Recorded ?Confirmed ?Last Taken ?Type fluticasone propionate 50 1 spray intranasal DAILY 12/21/23 03/23/25 Unknown History mcg/actuation nasal spray,suspension (Flonase Allergy Relief) acetaminophen 325 mg tablet 650 mg PO QID PRN for pain 03/23/25 03/23/25 Unknown History Exam Airway Mallampati Class: II TM Dist: >3cm Neck ROM: Full Heart: rrr Lungs: cta Assessment and Plan Assessment Anesthesia Assessment: Anesthesia Plan Discussed and Chart Reviewed Final Anesthetic Review NPO: Yes ASA Class: II Final Preanesthetic Review: No Changes in Pt Med Stat, Meds/Allgs Chart Reviewed, Consent Obtained/Reviewed and Anes Risks/Benef Reviewed Patient Risk: Low Procedure Risk: Intermediate Anesthetic Plan Anesthetic Plan: GA and Agree w/ Assess. and Plan Disposition: Standard PACU
[2025-03-25] MEDS: cefoTEtan disodium 2 GM VIAL IVPUSH (14:31)
--- NOTE | 2025-03-25 14:45 | P.OP_ITS ---
Operative Note Operative Note Date of Service: 03/25/25 Narrative: Preop diagnosis: Acute calculous cholecystitis Postop diagnosis: Acute calculous cholecystitis, with severely erythematous and indurated gallbladder with very thickened rind Procedure: Laparoscopic cholecystectomy with difficult dissection in view of severely inflamed and indurated gallbladder Surgeon: Blane Sr MD television production assistant: CRUZ Hernandez This is a 44 year old female admitted because of epigastric pain with note of gallstones as well as signs of acute cholecystitis on CAT scan. She initially did not want to proceed with surgery in view of improvement. However this morning we are able to discuss to her this option again including the risks of recurrence so she decided to proceed She understood the technique of the planned procedure as was the risks, benefits, and alternatives She was brought to the operating room and placed supine under general anesthesia via endotracheal tube. The abdomen was prepped and draped in the usual sterile fashion. A surgical time-out was done. The patient received Cefotan 2 g IV preoperatively I made a short supra umbilical incision with a blade 15. This carried down through the full-thickness of the skin and subcutaneous fat down to the fascia. The fascia was incised. The peritoneum was entered. Through this incision a Dior port was introduced. Pneumoperitoneum was introduced to a pressure of 15 mm Hg and from here on the rest of procedure was done under vision with the 10 mm laparoscope. With laparoscopic visualization and inserted a 5/12 mm port in the epigastric area below the subcostal margin. Two 5 mm ports introduced a small incision below the subcostal margin along the anterior axillary line and the midclavicular line. Graspers were placed through the working ports. The patient is placed in a head up [id number] position Initially, we could not see the gallbladder because this was covered by omentum. We had to carefully dissect the omentum with blunt dissection using the tip of the suction director dental services to carefully peel off this thickened omentum from the gallbladder wall. By doing so we are able to expose the anterior gallbladder wall. This was very distended, edematous, indurated firm. We therefore had to decompress this using an aspirating needle and after that, we are able to eventually apply the graspers. Even then we had difficulty applying the graspers in view of the very thickened rind surrounding the entire gallbladder. I retracted the gallbladder cephalad. I was able to apply another grasper of the we will difficulty towards the heel part of the gallbladder. Again, there was note of marked induration and thickening. We had to do careful blunt dissection with the [place] dissector to peel off the thickened rind from the neck of the gallbladder towards the duct. We had to proceed slowly as there were no planes and really had no good identification of this has thick duct at that point. We proceeded very slowly with careful by dissection by peeling off the very thickened rind from the gallbladder wall. Eventually was able to visualize what appeared to be the neck of the gallbladder. I carefully continued to define this distally until was able to visualize the cystic artery. By continuing to dissect the cystic artery, I was able to visualize the cystic duct. I was able to admits confluence with the neck of the gallbladder. There was note of very thickened hilum surrounding the gallbladder so we had to continued to gently dissect this to achieve a critical view of the hepatocystic triangle. We had significant oozing throughout this dissection in view of the very inflamed, thickened gallbladder wall Eventually, I was able to see more of the neck along with a tapering towards the cystic duct. I was able to clearly identify both the cystic artery and the cystic duct along with this junction towards the gallbladder. We therefore applied clips on the cystic artery 1st which was anterior to the cystic duct. Two clips being applied distally in the cystic artery was transected between clips endo-scissors. This allowed me to continued to define the neck as well as the cystic duct. We continued to do dissect this until I was able to apply clips. Two clips were applied distally in the cystic duct was transected between clips endo-scissors . We were able to apply traction on the gallbladder laterally using the 2nd grasper towards the neck. I continued to therefore divide the hilum using the L hook electrocautery. We had to do this mm by mm as this hilum was very indurated and markedly inflamed. There was note of significant oozing throughout this dissection. I carefully continued with dissection using the L hook, alternating on both medial and lateral surface of the gallbladder wall. This part of the procedure took an extended period time in view of the very poor planes Continued to separate the gallbladder from the liver with this form of dissection all the way to the fundus until the entire gallbladder was completely . I retrieved the gallbladder through an endobag through the umbilical incision. I examined the subhepatic space. There was note of some oozing so I applied Surgicel packing in the liver bed We observed all 4 quadrants. There was no evidence of any bowel injury or any bile leak I observed the subhepatic space for a minute to make sure that we had adequate hemostasis. It appeared that we had adequate hemostasis without any pooling of blood with the Surgicel in place Hemostasis was therefore confirmed, I proceeded then irrigate copiously and suctioned the irrigant fluid I positioned a 10 ARIAN drain in the subhepatic space. This has brought out through the most lateral port site and was secured to the skin with nylon 3-0 sutures I desufflated and removed all ports. I removed the umbilical port last The fascia of the umbilical incision was closed with a [id number] Polysorb 0 stitch. All skin incisions were closed with Polysorb 4-0 subcuticular running sutures All incisions were infiltrated with a Marcaine 0.5% for postop analgesia. Dressings were applied and the procedure was completed The patient tolerated procedure well. There were no immediate complications. Initial and final counts of sponges and instruments were correct. Estimated blood loss about 150 cc The patient was extubated without difficulty and transferred to the recovery room with stable vital signs.
--- NOTE | 2025-03-25 15:32 | MHC.CM.PN ---
pt not medically reDY FOR DC DC PLAN REMAINS HOME N/S
--- NOTE | 2025-03-25 15:43 | PM.EVENT ---
Event Note Date of Service: 03/25/25 Event Note: Seen postop Underwent laparoscopic cholecystectomy - severely inflamed, indurated gallbladder Appears to have good pain control Stable vital signs Abdomen is soft ARIAN drain with scanty dark old blood Pain management Likely home tomorrow at bedside Time Spent With Patient Time: Total time managing care of this patient today ____ minutes.
[2025-03-25] MEDS: 0.9 % Sodium Chloride Flush 3 ML SYRINGE IVFLUSH (21:02)
[2025-03-26 03:57] VITALS: BP 116/61; PULSE 70; RESP 19; TEMP 36.4; O2SAT 97
[2025-03-26] MEDS: Lactated Ringers 1,000 ML 100 ML IVCONT (06:11)
--- NOTE | 2025-03-26 06:41 | PM.PNGS ---
Subjective Subjective Date of Service: 03/26/25 <[facility] Filed: 03/26/25 06:58> 03/26/25 <Blane Sr MD - Last Filed: 03/26/25 07:34> Interval history: The patient is a 44 y/o F POD#1 s/p laproscopic cholecystectomy due to acute cholecystitis. This morning, she is in pain. She says the pain is a 7/10 and is mostly localized around her ARIAN tube insertion site. She has passed gas but not had a bowel movement. She has not had an appetite and has only been drinking water. She denies N/V. She has not been ambulating much. She denies issues with urination. <[facility] Filed: 03/26/25 06:58> Physical Exam Vital Signs: Vital Signs: Last Vital Signs Temp 97.5 F 03/26/25 03:57 Pulse 70 03/26/25 03:57 Resp 19 03/26/25 03:57 BP 116/61 03/26/25 03:57 Pulse Ox 97 03/26/25 03:57 O2 Del Method Room Air 03/26/25 03:57 O2 Flow Rate 6 03/25/25 15:06 BMI result Body Mass Index 28.9 <[facility] Filed: 03/26/25 06:58> Const: General: cooperative, comfortable, no acute distress, alert and awake <[facility] Filed: 03/26/25 06:58> Orientation/consciousness: patient oriented x3 <[facility] Filed: 03/26/25 06:58> Resp: Effort & Inspection: normal respiratory effort and able to speak in complete sentences <[facility] Filed: 03/26/25 06:58> Auscultation: clear to auscultation bilaterally, no crackles, no rales, no rhonchi and no wheezes <[facility] Filed: 03/26/25 06:58> Cardio: Jugular venous distension: no JVD <[facility] Filed: 03/26/25 06:58> Rate: regular rate <[facility] Filed: 03/26/25 06:58> Rhythm: regular rhythm <[facility] Filed: 03/26/25 06:58> Heart sounds: no click, no gallops, no murmurs and no rubs <[facility] Last Filed: 03/26/25 06:58> GI: Other: ARIAN tube with scant brown/green fluid (45mL output since surgery) <[facility] Last Filed: 03/26/25 06:58> Inspection: No distended <[facility] Last Filed: 03/26/25 06:58> Palpation (GI): Soft to palpation, not firm, Tenderness to palpation present (GI) (mild, diffuse) and no guarding <[facility] Filed: 03/26/25 06:58> Percussion: Yes normal to percussion <[facility] Filed: 03/26/25 06:58> Auscultation: normal bowel sounds <[facility] Filed: 03/26/25 06:58> Skin: Other: 1 bandaid on abdomen w/o discharge or erythema <[facility] Filed: 03/26/25 06:58> General skin exam: no erythema <[facility] Filed: 03/26/25 06:58> Neuro: General: patient oriented x3 <[facility] Filed: 03/26/25 06:58> Objective Data Active Medications Acetaminophen (Acetaminophen 325 Mg Tablet) 650 mg PO Q6H PRN PRN Reason: Pain, Mild 1-3,fever,headache Docusate Sodium (Docusate Sodium 100 Mg Capsule) 100 mg PO BID [facility] Lactated Ringer's (Lr) 1,000 mls @ 100 mls/hr IVCONT .Q10H [facility] Last Admin: 03/26/25 06:11 Dose: 100 mls/hr Documented By: DIVYA Piperacillin Sod/Tazobactam (Sod 3.375 gm/ Sodium Chloride) 50 mls @ 100 mls/hr IV Q6H [facility] Last Infusion: 03/26/25 04:05 Dose: Infused Documented By: DIVYA Magnesium Hydroxide (Milk Of Magnesia 30 Ml Oral.Susp) 30 ml PO DAILY PRN PRN Reason: Constipation Melatonin (Melatonin 3 Mg Tablet) 6 mg PO BEDTIME PRN PRN Reason: Insomnia Morphine Sulfate (Morphine Sulfate 4 Mg/Ml Cartridge) 3 mg IVPUSH Q4H PRN; Protocol PRN Reason: Pain, Severe (Pain Scale 7-10) Last Admin: 03/23/25 20:47 Dose: 3 mg Documented By: VADIM Ondansetron HCl (Ondansetron Hcl 4 Mg/2 Ml Vial) 4 mg IVPUSH Q6H PRN PRN Reason: nausea Oxycodone HCl (Oxycodone Hcl Immed Release 5 Mg Tablet) 5 mg PO Q4H PRN PRN Reason: Pain, Moderate(Pain Scale 4-6) Pantoprazole Sodium (Pantoprazole Sodium 40 Mg/10 Ml Vial) 40 mg IVPUSH DAILY [facility] Last Admin: 03/25/25 08:11 Dose: 40 mg Documented By: TERRELL Sodium Chloride (0.9 % Sodium Chloride Flush 3 Ml Syringe) 3 ml IVFLUSH QSHIFT [facility] Last Admin: 03/25/25 21:02 Dose: 3 ml Documented By: DIVYA <[facility] - Last Filed: 03/26/25 06:58> Labs CBC & Chem 7: 03/25/25 05:44 03/24/25 06:13 <[facility] Last Filed: 03/26/25 06:58> Microbiology Microbiology Results: Microbiology 03/23/25 15:21 Blood Culture - Preliminary Blood - Venous No growth after 48 hours. 03/23/25 15:08 Blood Culture - Preliminary Blood - Venous No growth after 48 hours. <[facility] Last Filed: 03/26/25 06:58> Procedures Date of Service Date of Service: 03/26/25 <[facility] Last Filed: 03/26/25 06:58> 03/26/25 <Blane Sr MD - Last Filed: 03/26/25 07:34> Progress Note: A&P Assessment and plan (1) Acute cholecystitis: Status: Acute <[facility] Filed: 03/26/25 06:58> Assessment and Plan: Status post laparoscopic cholecystectomy States she had a good night Good pain control Tolerated clear liquids Abdomen is soft ARIAN drain scanty serosanguineous Diet as tolerated Plan discharge later today with drain in place Teach on drain care We will see in the office if discharged today Seen and examined independently <Blane Sr MD - Last Filed: 03/26/25 07:34> Assessment and Plan: The patient is a 44 y/o F POD#1 s/p laproscopic cholecystectomy due to acute cholecystitis who is has had flatus but has not yet eaten solid food. PLAN Leave ARIAN tube in; consider removal on discharge Continue IV Zosyn due to severe gallbladder inflammation; switch to oral antibiotics on discharge Encourage patient to eat solid foods Encourage ambulation Encourage spirometry 10x per hour Pain management with Tylenol if needed Consider discharge later today if diet is tolerated <[facility] Last Filed: 03/26/25 06:58> Time Spent With Patient Time: Total time managing care of this patient today ____ minutes. <[facility] - Last Filed: 03/26/25 06:58> Quality Stroke Does the patient have a stroke diagnosis?: No <[facility] Filed: 03/26/25 06:58> VTE Prior VTE?: No [facility] Filed: 03/26/25 06:58> VTE Risk Level:: Medical - moderate - high <[facility] - Filed: 03/26/25 06:58> VTE Device Contraindication: N/A - Device Ordered <[facility] Filed: 03/26/25 06:58> VTE Drug Contraindication: N/A - Med Ordered <[facility] [employer] Last Filed: 03/26/25 06:58>
[2025-03-26 07:45] VITALS: BP 111/56; PULSE 70; RESP 18; TEMP 36.8; O2SAT 96
[2025-03-26] MEDS: oxyCODONE HCl Immed Release 5 MG TABLET PO (07:58)
--- NOTE | 2025-03-26 09:46 | HO.POSTANES ---
Post Anesthesia Evaluation Post Anesthesia Evaluation Date of Service: 03/26/25 Vital Signs: Vital Signs Temp Pulse Resp BP Pulse Ox O2 Del Method 03/26/25 07:45 98.2 F 70 18 111/56 L 96 Room Air 03/26/25 03:57 97.5 F 70 19 116/61 97 Room Air 03/25/25 23:28 97.1 F 66 18 122/59 L 96 Room Air Anesthesia: General Mental Status: Awake Pain Control: Satisfactory Nausea/Vomiting: None Hydration: Adequate Anesthesia-Related Issues: No Anes. Related Issues
[2025-03-26 11:09] VITALS: BP 111/63; PULSE 77; RESP 18; TEMP 36.3; O2SAT 97
--- NOTE | 2025-03-26 11:35 | W.MHC.F2F ---
Service Date Service Date: 03/26/25 Encounter Date of encounter: 03/26/25 Reasons for Services Signs and symptoms assessed: abdominal pain, oral intake, dressings, ARIAN output Reason for residential: wound care (ARIAN drain) and postoperative assessment and/or care Homebound: Leaving the home is medically contraindicated at this time without the asist of a device and/or another person due th the listed conditions above and below. Reason homebound: weakness related to hospital stay and unable to drive Homebound supporting statement: Ms. Rock will need home VNA for ARIAN drain care s/p laparoscopic cholecystectomy. Certification: Based on the above findings, I certify that this patient is confined to the home and needs intermittent residential care, physical therapy and/or speech therapy, or continues to need occupational therapy. The patient is under my care, and I have initiated the establishment of the plan of care. The patient will be followed by a physician who will periodically review the plan of care. Time Spent With Patient Time: Total time managing care of this patient today ____ minutes.
--- NOTE | 2025-03-26 13:47 | P.DS_ITS ---
DS: Providers Provider Date of Service: 03/26/25 Date of admission: 03/23/25 17:46 Date of discharge: 03/26/25 Primary care physician: Elen Mckeon MD Attending physician on admission: Blane Sr Attending physician on discharge: Blane Sr DS: Diagnosis Discharge Diagnosis (1) Acute cholecystitis: Status: Acute DS: Summary Hospital Course Hospital Course: HPI AT ADMISSION: Jose Rock is a 44 year old female the ED for epigastric pain. She says that this started sometime late yesterday afternoon. She says that this has constant. She describes a little bit of nausea but no vomiting. She denies any fever or chills. She describes similar episode about 2 months ago but of a much lesser intensity. She actually had been seeing the angiography technologist in the past for chronic epigastric pain and had been on PPIs before. HOSPITAL COURSE: The patient was admitted to the surgical service for further treatment of the acute cholecystitis. She initially wanted to try nonoperative measures. She was started on IV zosyn and IVF. She reported improvement in her symptoms however her WBC count remained significantly elevated after 2 days of IV abx. It was therefore recommended to proceed with laparoscopic cholecystectomy, possible open and she was added onto the OR schedule for that day. On 03/25/25, a laparoscopic cholecystectomy was performed by Dr. Sr without complication. She was found to have a severely erythematous and indurated gallbladder with very thickened rind. ARIAN drain was placed intraoperatively. The patient tolerated the procedure well. She had an uncomplicated recovery course. On POD #1, she felt well and was tolerating a solid diet without nausea or vomiting, had good pain control and was ambulating without difficulty. She was hemodynamically stable. Her abdomen was benign with appropriate post op tenderness and clean and intact dressings. Her ARIAN drain had nonbilious output. She was reassessed later in the day and felt ready for discharge. She was discharged to home on 03/26/25 in stable condition with VNA services for ARIAN drain care. She is to follow up in the office in 2 days for drain removal. Status at Discharge Functional status at discharge: independent ambulation Overall status at discharge: patient is progressing back to baseline Time Attestation Discharge Coordination Time (in mins): 25 Quality: Safe Use of Opioids Does Pt have an Active Cancer Diagnosis on the Problem List?: No Quality: Stroke Does the patient have a stroke diagnosis?: No Physical Exam Vital Signs: Vital Signs: Last Vital Signs Temp 97.4 F 03/26/25 11:09 Pulse 77 03/26/25 11:09 Resp 18 03/26/25 11:09 BP 111/63 03/26/25 11:09 Pulse Ox 97 03/26/25 11:09 O2 Del Method Room Air 03/26/25 11:09 O2 Flow Rate 6 03/25/25 15:06 BMI result Body Mass Index 28.9 Const: General: comfortable, no acute distress and alert Orientation/consciousness: patient oriented x3 Resp: Effort & Inspection: normal respiratory effort GI: Other: ARIAN drain output scant, nonbilious Inspection: No distended and Yes incision (dressings clean and intact) Palpation (GI): Soft to palpation, Tenderness to palpation present (GI) (mild incisional) and no guarding Skin: General skin exam: no rashes or lesions noted and no jaundice Neuro: General: patient oriented x3 and moves all extremities DS: Data Data Completed and Pending Pending studies at discharge: Pending at discharge 03/25/25 14:25 Surgical [PTH] Routine Labs on day of discharge: Preliminary micro results at discharge 03/23/25 15:21 Blood Culture - Preliminary Blood - Venous No growth after 48 hours. 03/23/25 15:08 Blood Culture - Preliminary Blood - Venous No growth after 48 hours. Discharge Plan Discharge Anticipated Discharge Date/Time: 03/26/25 08:40 Patient Disposition: Home Health Service Discharge Diagnosis: s/p laparoscopic cholecystectomy Referrals: [place] [facility] [Outside] - 1 Week Referral Note: HOME SERVICES FOR HALFWAY- A NURSE WILL CALL YOU TO SET UP FIRST VISIT Blane Sr MD [Physician, General Surgery] - 1 Day Elen Mckeon MD [Primary Care Provider, Internal Medicine] - 1 Week Discharge Medications: New docusate sodium [Colace] 100 mg capsule 100 mg PO BID PRN (Reason: constipation) Qty: 30 0RF oxycodone 5 mg tablet 5 mg PO Q4H PRN (Reason: pain (scale score 7-10)) Qty: 24 0RF Rx Instructions: Partial Fill upon patient request. Continued acetaminophen 325 mg Tablet 650 mg PO QID PRN (Reason: for pain) fluticasone propionate [Flonase Allergy Relief] 50 mcg/actuation spray,suspension 1 spray intranasal DAILY Rx Instructions: administer into each nostril Discharge Orders: Discharge Order (Routine); Ordered 03/26/25 Ordered By: Nereyda Hernandez Diet: Advance to usual diet Activity on Discharge: No heavy lifting Stand Alone Forms: Patient Portal Discharge page Print Language: Yakut Activity Restrictions/Additional Instructions: If the incision area is tender, you may apply an ice pack for short intervals (No more than 20 minutes on, followed by at least 20 minutes off). Do not apply heat. Do not use creams, lotions, or topical antibiotics. These can cause infection or allergic reaction. Ok to shower 24 hours after your surgery. Remove bandaids in 2 days. You have steri strips (small white strips) covering your incision- these will fall off ~1 week. ARIAN drain care- empty drain BID and as needed. Record output. [facility]. Follow up in office with Dr. Sr on . ([phone]) No heavy lifting (>10-20lbs) or strenuous activity! Call Your Doctor If: -Your temperature exceeds 101.5? F -You experience excessive pain or swelling -You have an unexpected reaction to medication -You have excessive bleeding -You experience continued vomiting/nausea -Your incision begins to separate -Your incision shows signs of infection such as increased redness, swelling, excessive pain, drainage (light blood or clear fluid is normal) or heat Care Plan Goals: Return to baseline health and resume normal activities following recovery period. ARIAN drain removal. Health Concerns: acute cholecystitis Plan of Treatment: s/p laparoscopic cholecystectomy VNA services for ARIAN drain care F/u in office for wound check, ARIAN drain removal Assessment: Doing well post op. Patient Instructions: Cholecystitis (GEN), Laparoscopic Cholecystectomy (GEN)
[2025-03-26 16:00] VITALS: BP 113/59; PULSE 76; RESP 18; TEMP 36.6; O2SAT 98
== END 2025-03-26 16:53 | disposition home health service (06) | DRG 263 ==
LOC: HO.ED 14:55 → HO.EDOVER 17:54 → HO.S3 20:25
PROVIDERS: Physician Assistant Medical; Admitting Provider Surgery; Emergency Provider Emergency Medicine; PCP Family Medicine; Visit Provider Surgery
PROC: 0FT44ZZ Resection of Gallbladder, Percutaneous Endoscopic Approach (ICD-10-PCS; CPT 47562; principal; 2025-03-25 13:00)
DX: K80.00 Calculus of gallbladder with acute cholecystitis without obstruction (principal)
CPT/HCPCS: 47562; 36415; 74177; 80048; 80053; 80076; 83605; 83690; 83735; 84484; 84702; 85025; 85027; 87040; 88304; 93005; 99285; J0131; J1100; J1171; J1644; J2003; J2270; J2405; J2470; J2543; J2704; J2795; J3010; J7120; Q9967

== ENCOUNTER → 2025-03-23 07:46 | Outpatient (BNV) | payer OTHER, SELFPAY | PROVIDERS: Admitting Provider Surgery; Emergency Provider Emergency Medicine; PCP Family Medicine; Visit Provider Internal Medicine Cardiovascular Disease | DX: R00.1 Bradycardia, unspecified (principal) | CPT/HCPCS: 93010 ==

== ENCOUNTER → 2025-03-23 12:29 | Outpatient (BNV) | payer OTHER, SELFPAY | PROVIDERS: Emergency Provider Emergency Medicine; PCP Family Medicine; Visit Provider Radiology Diagnostic Radiology | DX: K80.20 Calculus of gallbladder without cholecystitis without obstruction (principal); N28.1 Cyst of kidney, acquired; N83.202 Unspecified ovarian cyst, left side; K44.9 Diaphragmatic hernia without obstruction or gangrene | CPT/HCPCS: 74177 ==

== ENCOUNTER → 2025-03-23 17:46 | Outpatient (BNV) | payer OTHER, SELFPAY | PROVIDERS: Admitting Provider Surgery; Emergency Provider Emergency Medicine; PCP Family Medicine; Visit Provider Surgery | DX: K81.0 Acute cholecystitis (principal) | CPT/HCPCS: 99024; 99222; 99232; 99499; G0180 ==

== ENCOUNTER 2025-03-28 09:47 | Outpatient (AMB) | payer OTHER, SELFPAY ==
--- NOTE | 2025-03-28 09:57 | MHC.OFFVIS ---
Vital Signs 03/28/25 10:10 Height 5 ft 2 in Weight 158 lb 6 oz BMI 29.0 BP 118/58 L Blood Pressure Location Lt brachial Position Sitting Pulse 81 Intake Visit Reasons: s/p cholecystectomy ? drain removal Intake Note: Patient is seen in office for post op assessment post cholecystectomy. Pt c/o: admits to sore and tender, when eating food goes right through diarrhea , drains output 03/26/25 20mL, 03/27/25 morning 20 ML -night 30mL Gluing Machine Offbearer Required: No Accompanied by: Family/Other Allergies No Known Allergies Allergy (Verified 03/23/25 07:41) HPI HPI s/p cholecystectomy ? drain removal: Details: 44 year old female who was admitted for acute cholecystitis. She initially attempted nonoperative measures with IV abx however had persistent leukocytosis and therefore underwent laparoscopic cholecystectomy on 03/25/[address] Sr for acute gangrenous cholecystitis without complication. She tolerated the procedure well. She had a very indurated gallbladder with difficult dissection and therefore ARIAN drain was left in place. She was discharged to home on 03/26/25 with the ARIAN drain. She presents today for possible drain removal. She feels ok today, reports soreness and incisional pain with movement but is comfortable at rest. She is not taking anything for pain. She is tolerating a solid diet without nausea or vomiting but reports some fecal urgency after eating some foods, specifically rice. She however is able to tolerate oatmeal, avocado without diarrhea. She has been having about 30-50cc serosanguineous drainage per day. She denies fevers, chills, changes in skin color, nausea/vomiting. 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 Sexual orientation: Straight/Heterosexual Gender identity: Female Female Reproductive History Menstrual Age of Menarche: 16 Review of Systems Const All systems reviewed & are unremarkable except as noted in HPI and below Physical Exam Vital Signs: Last Vital Signs Pulse 81 03/28/25 10:10 BP 118/58 L 03/28/25 10:10 BMI result Body Mass Index 29.0 Const General: comfortable, no acute distress and alert Orientation/consciousness: patient oriented x3 Resp Effort & Inspection: normal respiratory effort GI Other: abdomen soft bandaids removed from incisions, steris intact, no surrounding erythema mild incisional tenderness ARIAN drain serosanguineous output, removed, dry dressing placed Inspection: No distended Palpation (GI): no guarding and not rigid Percussion: Yes normal to percussion Skin General skin exam: no rashes or lesions noted and no jaundice Neuro General: patient oriented x3 and moves all extremities Results Reviewed Results Reviewed: Gallbladder, cholecystectomy: Acute gangrenous cholecystitis with cholelithiasis. Assessment & Plan Assessment & Plan (1) S/P laparoscopic cholecystectomy: Code(s): Z90.49 - Acquired absence of other specified parts of digestive tract Category: Surgical Plan 44 year old female s/p laparoscopic cholecystectomy on 03/25/[address] Sr for acute gangrenous cholecystitis. She tolerated the procedure well. She was discharged on 02/23/25 with the ARIAN Drain in place. She has low nonbilious output and therefore ARIAN drain removed uneventfully in the office today. Dry dressing placed. Instructed on daily local wound care and that some drainage from old drain site is normal until the site completely closes. She was instructed to follow low fat diet for the next few weeks to help with the urgency and diarrhea. She is to continue lifting restrictions. She is to follow up in 1-2 weeks for wound check. She can return sooner if she develops concerns. All questions answered, patient and comfortable with plan. Coding Level of Care Code Global (64213) Diagnoses S/P laparoscopic cholecystectomy Z90.49
[2025-03-28 10:10] VITALS: BP 118/58; PULSE 81; BMI 29.0
--- OUTSIDE RECORDS SUMMARY | 2025-03-28 11:25 | XMS_ITS | Encounter Summary ---
Author Organization [employer] Address [address] [facility] 7 [place] [address] Care Team Providers Care Optometry Teacher Name Role Phone Elen Mckeon MD Primary Care Provider [phone] Encounter Details Date Type Department Care Team (Late st Contact Info) Description 03/23/2025 Orders Only GENERIC EXTERNAL DATA DEPARTMENT Provider, Generic External Data Social History Tobacco Use Types Packs/Day Years [...] Care Team (Late st Contact Info) Description 03/28/2025 11:30 AM EDT Office Visit [facility] [address] [place] [address] [phone] Elen Mckeon MD [address] [place], [place] [phone] 04/01/2025 3:00 PM EDT Office Visit [facility] [address] [place] [address] [phone] Elen Mckeon MD [address] [place], [place] [phone] documented as of this encounter Procedures Procedure Name Priority Date/Time Associated Diagnosis Comments LACTIC ACID Routine 03/23/2025 3:[address] ABDOMEN PELVIS W CONTRAST Routine 03/23/2025 2:41 PM EDT HIGH SENSITIVITY TROPONIN I Routine 03/23/2025 9:28 AM EDT CBC WITH AUTO DIFFERENTIAL Routine 03/23/2025 8:13 AM EDT documented in this encounter Results * Lactic Acid (03/23/2025 3:08 PM EDT) Lactic Acid 1.8 0.5 - 2.0 mmol/L [facility] 03/23/2025 3:08 PM EDT 03/23/2025 3:12 PM EDT us Generic External Data Provider LAB BLOOD ORDERAB LES Final Result [facility] [address] [place] [phone] * CT Abdomen Pelvis w/ Contrast (03/23/2025 2:41 PM EDT) Anatomical Region Laterality Modality Body, Pelvis, Abdomen Computed T omography 03/23/2025 2:41 PM EDT Narrative 03/23/2025 2:43 PM EDT [address] [address] [address] Scan Report Signed with Addenda Patient: Jose Rock MR#: [id number] : 1980 Acct:[id number] Age/Sex: 44 / F ADM Date: 03/23/25 Loc: HO.ED Attending Dr: Ordering Physician: nAa Bianchi Date of Service: 03/23/25 Procedure(s): CT abdomen pelvis w IV con Accession Number(s): [id number] cc: Ana Bianchi; Elen Mckeon MD Report Number: [id number]: Total DLP = 644.00 mGy-cm Reason for Exam: epigastric pain, white count, vomiting ADDENDUM This document has been electronically signed by: Chris Topete MD on 03/23/2025 14:41:35 ADDENDUM: This report was discussed with Tash ARROYO on Mar 23, 2025 14:43:00 EDT. This document has been electronically signed by: Dea Pena on 03/23/2025 14:43:35 Addendum Dictated By: Chris Topete MD Addendum Signed By: <Electronically signed by Chris Topete MD in OV> 03/23/251443 Addendum Cosigned By: DD/ TD/TT: 03/23/25 CLINICAL HISTORY: epigastric pain, white count, vomiting CT abdomen and pelvis with contrast Comparison: None provided Findings: Minimal bibasilar dependent subsegmental atelectasis. Hiatal hernia. Cholelithiasis; single stone, 2.3 x 3 cm. . Pericholecystic edema. Left renal interpolar region cortical low-attenuation lesion, 3.4 x 4 cm; cysts. No bowel obstruction, pneumoperitoneum, or pneumatosis. The appendix within normal limits. Left ovarian low-attenuation lesion, 2.2 cm. The bones are intact. L5-S1: Moderate DJD. IMPRESSION: 1. Large gallstone (2.3 x 3 cm) with pericholecystic edema, concerning for acute cholecystitis. 2. Left renal interpolar cortical cyst, 3.4 x 4 cm. 3. Left ovarian cyst, 2.2 cm. 4. Hiatal hernia. This document has been electronically signed by: Chris Topete MD on 03/23/2025 14:41:35 Dictated By: Chris Topete MD Signed By: <Electronically signed by Chris Topete MD in OV> 03/23/25 1442 DD/ 1441 TD/TT: 03/23/25 144 Product Development Carpenter: Procedure Note Donotuseinterpreter, Image - 03/23/[address] [place] [address] [address] Scan Report Signed with Addjenifer Patient: Nile Rock#: [id number] : 1980Acct:[id number] Age/Sex: 44 / FADM Date: 03/23/25 Loc: HO.ED Attending Dr: Ordering Physician: Ana Bianchi Date of Service: 03/23/25 Procedure(s): CT abdomen pelvis w IV con Accession Number(s): [id number] cc: Ana Bianchi; Elen Mckeon MD Report Number: [id number]: Total DLP = 644.00 mGy-cm Reason for Exam: epigastric pain, white count, vomiting ADDENDUM This document has been electronically signed by: Chris Topete MD on 03/23/2025 14:41:35 ADDENDUM: This report was discussed with Tash ARROYO on Mar 23, 2025 14:43:00 EDT. This document has been electronically signed by: Austen Penaia on 03/23/2025 14:43:35 Addendum Dictated By: Chris Topete MD Addendum Signed By: <Electronically signed by MD Gloria in OV> 03/23/251443 Addendum Cosigned By: DD/ TD/TT: 03/23/25 CLINICAL HISTORY: epigastric pain, white count, vomiting CT abdomen and pelvis with contrast Comparison: None provided Findings: Minimal bibasilar dependent subsegmental atelectasis. Hiatal hernia. Cholelithiasis; single stone, 2.3 x 3 cm. . Pericholecystic edema. Left renal interpolar region cortical low-attenuation lesion, 3.4 x 4 cm; cysts. No bowel obstruction, pneumoperitoneum, or pneumatosis. The appendix within normal limits. Left ovarian low-attenuation lesion, 2.2 cm. The bones are intact. L5-S1: Moderate DJD. IMPRESSION: 1. Large gallstone (2.3 x 3 cm) with pericholecystic edema, concerning for acute cholecystitis. 2. Left renal interpolar cortical cyst, 3.4 x 4 cm. 3. Left ovarian cyst, 2.2 cm. 4. Hiatal hernia. This document has been electronically signed by: Chris Topete MD on 03/23/2025 14:41:35 Dictated By: Chris Topete MD Signed By: <Electronically signed by Chris Topete MD in OV> 03/23/251441 DD/ 40 TD/TT: 03/23/251440 Product Development Carpenter: [facility] External Provider IMG CT PROCEDURES Edited Result - Final * High Sensitivity Troponin I (03/23/2025 9:28 AM EDT) TROPONIN I HIGH SENSITIVITY <2.7 <3.5 - 17.0 ng/L [facility] Comment:The Andrews high sens itivity Troponin-I results should beused in conjunction with other diagnostic information suchas ECG, clinical observations and information, and patientsymptoms to aid in the diagnosis of [place]. 03/23/2025 9:28 AM EDT 03/23/2025 9:35 AM EDT us Generic External Data Provider LAB BLOOD ORDERAB LES Final Result [facility] [address] [place] [phone] * (ABNORMAL) CBC auto differential (03/23/2025 8:13 AM EDT) White Blood Count 12.9(H) 4.8 - 10.8 X10*3/uL [facility] Red Blood Count 5.17 4.20 - 5.50 X10*6/uL [facility] Hemoglobin 13.8 12.0 - 16.0 g/dl [facility] Hematocrit 41.4 37.0 - 47.0 % [facility] Mean Corpuscular Volume 80.1 80.0 - 98.0 fL [facility] Mean Corpuscular Hemoglobin 26.7(L) 27.0 - 33.0 pg [facility] Mean Corpuscular HGB Conc 33.3 31.0 - 35.0 g/dl [facility] Red Cell Distribution Width 12.1 11.0 - 16.0 % [facility] Platelet Count 342 160 - 400 X10*3/uL [facility] Mean Platelet Volume 9.5 9.4 - 12.3 fL [facility] Neutrophils Percent Auto 86.9(H) 45 - 73 % [facility] Imm Gran Pct Auto 0.3 0.0 - 0.4 % [facility] Lymphocytes Percent Auto 8.6(L) 20 - 40 % [facility] Monocytes Percent Auto 3.9 2 - 11 % [facility] Eosinophils Percent Auto 0.1 0 - 4 % [facility] Basophils Percent Auto 0.2 0 - 2 % [facility] NRBC Pct Auto 0.0 0.0 - 0.2 /100WBC [facility] Neutrophils Absolute Auto 11.2(H) 2.0 - 8.3 x10*3/uL [facility] Imm Gran Abs Auto 0.04(H) 0.00 - 0.03 X10*3/uL [facility] Lymphocytes Absolute Auto 1.1(L) 1.2 - 4.9 X10*3/uL [facility] Monocytes Absolute Auto 0.5 0.1 - 1.2 X10*3/uL [facility] Eosinophils Absolute Auto 0.0 0.0 - 0.4 X10*3/uL [facility] Basophils Absolute Auto 0.0 0.0 - 0.2 X10*3/uL [facility] NRBC Abs Auto 0.000 0.0 - 0.012 X10*3/uL [facility] 03/23/2025 8:13 AM EDT 03/23/2025 8:28 AM EDT us Generic External Data Provider LAB BLOOD ORDERAB LES Final Result Performing Organization Address City/State/[facility] Co de Phone Number [facility] [address] [place] [phone] documented in this encounter Visit Diagnoses Not on filedocumented in this encounter Additional Health Concerns Assessment Noted Time PHQ-9 Depression Total Score: 0 07/16/19 25 9:55 AM EST documented as of this encounter Care Teams Optometry Teacher Relationship Specialty Start Date End Date Elen Mckeon MD [address] [place] [phone] PCP - General Family Medicine 10/17/15 documented as of this encounter
--- OUTSIDE RECORDS SUMMARY | 2025-03-28 11:25 | XMS_ITS | Clinical Summary ---
Author Organization [employer] Address [address] [place] [address] 7t [place] [address] Care Team Providers Care Fx Artist Name Role Phone Elen Mckeon MD Primary Care Provider [phone] Allergies No known active allergies Medications acetaminophen [...] (05/03/2024 10:02 AM EDT): - Evaluated by [facility] for chronic pelvic pain and hydrosalpinx seen on US in Jun 2022. - Last US in December 2022 showed: Small uterine fibroids. Stable cystic structure in the left adnexa questionable for hydrosalpinx. - Given reassurance Assessment & Plan (07/04/2023 6:04 AM EST): - Evaluated by [facility] for chronic pelvic pain and hydrosalpinx seen [...] (07/04/2023 6:06 AM EST): - evaluated by [facility] - had 3 US studies which show [...] Encounters Date Type Department Care Team Description 03/23/2025 Orders Only GENERIC EXTERNAL DATA DEPARTMENT Provider, Generic External Data 02/27/2025 3:30 PM EDT Office Visit [facility] [address] [place] [address] Stephane Whitaker, DMD Reversible pulpitis (Primary Dx) 02/27/2025 Travel 02/27/2025 Telephone [facility] [address] [place], [place] [address] Sandeep Márquez 02/25/2025 Results Follow-Up [facility] [address] [place] [address] Elen Mckeon MD BI Mammogram Screening Tomosynthesis Bilateral, BI US Breast Limited Left 02/18/2025 Orders Only [facility] [address], [place] [address] Elen Mckeon MD 12/27/2024 Orders Only GENERIC [...] Description 03/28/2025 11:30 AM EDT Office Visit [facility] [address] [place] [phone] Elen Mckeon MD [address] [place] [address] 04/01/2025 3:00 PM EDT Office Visit [facility] [address] [place] [address] Elen Mckeon MD [address] [place] [address] Health Maintenance Due Date Last Done Comments Disability Screening 1980 Family Planning (PISQ) 1997 HPV Vaccines (1 - 3-dose series) 1997 IPV Vaccines (3 of 3 - Adult catch-up series) 08/02/2007 01/30/2007, 09/06/2006 Dental Oral Exam 06/16/2017 12/14/2016 Dental Prophylaxis 06/18/2017 12/16/2016 Dental X-Ray: Full Mouth 12/16/2019 12/14/2016 COVID-19 Vaccine ( - 2024-2 6 season) 2025 11/20/2020, 10/25/2020 [...] AUTO DIFFERENTIAL Routine 03/23/2025 8:13 AM EDT BI US BREAST LIMITED LEFT Routine 03/08/2025 [...] Recently Relevant to Health Maintenance Results * Lactic Acid (03/23/2025 3:08 PM EDT) Lactic Acid 1.8 0.5 - 2.0 mmol/L [facility] 03/23/2025 3:08 PM EDT 03/23/2025 3:12 PM EDT us Generic External Data Provider LAB BLOOD ORDERAB LES Final Result Performing Organization Address City/State/[facility] Co de Phone Number [facility] [address] [place] [phone] * CT Abdomen Pelvis w/ Contrast (03/23/2025 2:41 PM EDT) Anatomical Region Laterality Modality Body, Pelvis, Abdomen Computed T omography 03/23/2025 2:41 PM EDT Narrative 03/23/2025 2:43 PM EDT [address] [address] [address] Scan Report Signed with Addenda Patient: Jose Rock MR#: [id number] : 1980 Acct:[id number] Age/Sex: 44 / F ADM Date: 03/23/25 Loc: HO.ED Attending Dr: Ordering Physician: Ana Bianchi Date of Service: 03/23/25 Procedure(s): CT abdomen pelvis w IV con Accession Number(s): [id number] cc: Ana Bianchi; Elen Mckeon MD Report Number: [id number]: Total DLP = 644.00 mGy-cm Reason for [...] in OV> 03/23/251441 DD/ 40 TD/TT: 03/23/251440 Gas Distribution Supervisor: Procedure Note Donotuseinterpreter, Image - 03/23/[address] [place] [address] [address] Scan Report Signed with Addenda Patient: Nile Rock#: [id number] : 1980Acct:[id number] Age/Sex: 44 / FADM Date: 03/23/25 Loc: .ED Attending Dr: Ordering Physician: Ana Bianchi Date of Service: 03/23/25 Procedure(s): CT abdomen pelvis w IV con Accession Number(s): [id number] cc: Ana Bianchi; Elen Mckeon MD Report Number: [id number]: Total DLP = 644.00 mGy-cm Reason for [...] Topete MD in OV> 03/23/25 1442 DD/ 40 TD/TT: 03/23/251440 Gas Distribution Supervisor: [facility] External Provider IMG CT PROCEDURES Edited Result - Final * High Sensitivity Troponin I (03/23/2025 9:28 AM EDT) Pathologist [facility] TROPONIN I HIGH SENSITIVITY <2.7 <3.5 - 17.0 ng/L [facility] Comment:The Andrews high sens itivity Troponin-I results should beused in conjunction with other diagnostic information suchas ECG, clinical observations and information, and patientsymptoms to aid in the diagnosis of [place]. 03/23/2025 9:28 AM EDT 03/23/2025 9:35 AM EDT Generic External Data Provider LAB BLOOD ORDERAB LES Final Result [facility] [address] [place] [phone] * (ABNORMAL) CBC auto differential (03/23/2025 8:13 AM EDT) Pathologist [facility] White Blood Count 12.9(H) 4.8 - 10.8 X10*3/uL [facility] Red Blood Count 5.17 4.20 - 5.50 X10*6/uL [facility] Hemoglobin 13.8 12.0 - 16.0 g/dl [facility] Hematocrit 41.4 37.0 - 47.0 % [facility] Mean Corpuscular Volume 80.1 80.0 - 98.0 fL [facility] Mean Corpuscular Hemoglobin 26.7(L) 27.0 - 33.0 pg [facility] Mean Corpuscular HGB Conc 33.3 31.0 - 35.0 g/dl [facility] Red Cell Distribution Width 12.1 11.0 - 16.0 % [facility] Platelet Count 342 160 - 400 X10*3/uL [facility] Mean Platelet Volume 9.5 9.4 - 12.3 fL [facility] Neutrophils Percent Auto 86.9(H) 45 - 73 % [facility] Imm Gran Pct Auto 0.3 0.0 - 0.4 % [facility] Lymphocytes Percent Auto 8.6(L) 20 - 40 % [facility] Monocytes Percent Auto 3.9 2 - 11 % [facility] Eosinophils Percent Auto 0.1 0 - 4 % [facility] Basophils Percent Auto 0.2 0 - 2 % [facility] NRBC Pct Auto 0.0 0.0 - 0.2 /100WBC [facility] Neutrophils Absolute Auto 11.2(H) 2.0 - 8.3 x10*3/uL [facility] Imm Gran Abs Auto 0.04(H) 0.00 - 0.03 X10*3/uL [facility] Lymphocytes Absolute Auto 1.1(L) 1.2 - 4.9 X10*3/uL [facility] Monocytes Absolute Auto 0.5 0.1 - 1.2 X10*3/uL [facility] Eosinophils Absolute Auto 0.0 0.0 - 0.4 X10*3/uL [facility] Basophils Absolute Auto 0.0 0.0 - 0.2 X10*3/uL [facility] NRBC Abs Auto 0.000 0.0 - 0.012 X10*3/uL [facility] 03/23/2025 8:13 AM EDT 03/23/2025 8:28 AM EDT us Generic External Data Provider LAB BLOOD ORDERAB LES Final Result [facility] [address] [place] [phone] * BI US Breast Limited Left (03/08/2025 9:04 AM EDT) Anatomical Region Laterality Modality Breast Left Ultrasound 03/08/2025 9:04 AM EDT Narrative 03/08/2025 10:38 AM EDT [facility] [address] [place] [address] Ultrasound Report Signed Patient: Jose Rock MR#: [id number] : 1980 Acct:[id number] Age/Sex: 44 / F ADM Date: 03/08/25 Loc: HO.MAMMO Attending Dr: Elen Mckeon MD Ordering Physician: Elen Mckeon MD Date of Service: 03/08/25 Procedure(s): US breast LT limited mamm only Accession Number(s): [id number] cc: Elen Mckeon MD EXAMINATIONS: 1. MM [...] at about 8.5 cm from the nipple (ignoaqsp06/56). Targeted ultrasound was performed at the location [...] Ximena Ramirez MD 03/08/2025 10:35 AM EDT RP Dictated By: Ximena Ramirez MD Signed By: <Electronically signed by Ximnea Ramirez MD in OV> 03/08/25 1035 DD/ 0904 TD/TT: 03/08/25 0938 Gas Distribution Supervisor: Procedure Note Donotuseinterpreter, Image - 03/08/2025 [facility] [address] [place], [place] [address] Ultrasound Report Signed Patient: Nile Rock#: [id number] : 1980Acct:[id number] Age/Sex: 44 / FADM Date: 03/08/25 Loc: HO.MAMMO Attending Dr: Elen Mckeon MD Ordering Physician: Elen Mckeon MD Date of Service: 03/08/25 Procedure(s): US breast LT limited mamm only Accession Number(s): [id number] cc: Elen Mckeon MD EXAMINATIONS: 1. MM [...] at about 8.5 cm from the nipple (tbfqbyfa84/56). Targeted ultrasound was performed at the location [...] 03/08/25 1035 DD/ 0904 TD/TT: 03/08/25 0938 Gas Distribution Supervisor: us Elen Mckeon MD IMG US PROCEDURES Edited Result - Final * BI Mammogram Diagnostic Tomosynthesis added left (03/08/2025 8:50 AM EDT) Anatomical Region Laterality Modality Breast Left Mammography 03/08/2025 8:50 AM EDT Narrative 03/08/2025 10:38 AM EDT [facility] [address] [place], [place] [address] Mammography Report Signed Patient: Jose Rock MR#: [id number] : 1980 Acct:[id number] Age/Sex: 44 / F ADM Date: 03/08/25 Loc: HO.MAMMO Attending Dr: Elen Mckeon MD Ordering Physician: Elen Mckeon MD Results: 3.6MProba annabella Benign Finding - Short 6 M F/U Suggested Date of Service: 03/08/25 Follow Up: 6 Month F/U Procedure(s): MM tomosynthesis added views L Accession Number(s): [id number] cc: Elen Mckeon MD EXAMINATIONS: 1. MM [...] at about 8.5 cm from the nipple (zuznypah02/56). Targeted ultrasound was performed at the location [...] 03/08/25 1035 DD/ 0850 TD/TT: 03/08/25 0905 Gas Distribution Supervisor: Procedure Note Donotuseinterpreter, Image - 03/08/2025 [facility] [address] [place] [address] Mammography Report Signed Patient: Nile Rock#: [id number] : 1980Acct:[id number] Age/Sex: 44 / FADM Date: 03/08/25 Loc: HO.MAMMO Attending Dr: Elen Mckeon MD Ordering Physician: Elen Mckeon MDResults: 3.6MProba annabella Benign Finding - Short 6 M F/U Suggested Date of Service: 03/08/25Follow Up: 6 Month F/U Procedure(s): MM tomosynthesis added views L Accession Number(s): [id number] cc: Elen Mckeon MD EXAMINATIONS: 1. MM [...] at about 8.5 cm from the nipple (qaojtwup36/56). Targeted ultrasound was performed at the location [...] 03/08/25 1035 DD/ 0850 TD/TT: 03/08/25 0905 Gas Distribution Supervisor: us Elen Mckeon MD IMG BI PROCEDURES Edited Result - Final * BI Mammogram Screening Tomosynthesis Bilateral (02/18/2025 9:34 AM EDT) Anatomical Region Laterality Modality Breast Bilateral Mammography 02/18/2025 9:34 AM EDT Narrative 02/25/2025 12:21 PM EDT [facility] [address] [place] [address] Mammography Report Signed Patient: Jose Rock MR#: [id number] : 1980 Acct:[id number] Age/Sex: 44 / F ADM Date: 02/18/25 Loc: [place] Attending Dr: Elen Mckeon MD Ordering Physician: Elen Mckeon MD Results: 0Incomple te: Needs Additional Imaging Evaluation Date of Service: 02/18/25 Follow Up: Additional Imagi ng Procedure(s): MM tomosynthesis screening BI Accession Number(s): [id number] cc: Sakurai,Elen MD EXAMINATION: MM SCREENING DIGITAL BREAST TOMOSYNTHESIS, [...] 02/25/25 1218 DD/ 0934 TD/TT: 02/18/25 1008 Gas Distribution Supervisor: Procedure Note Donotuseinterpreter, Image - 02/25/2025 [facility] [address] [place] [address] Mammography Report Signed Patient: Nile Rock#: [id number] : 1980Acct:[id number] Age/Sex: 44 / FADM Date: 02/18/25 Loc: [place] Attending Dr: Elen Mckeon MD Ordering Physician: Elen Mckeon MDResults: 0Incomple te: Needs Additional Imaging Evaluation Date of Service: 02/18/25Follow Up: Additional Imagi ng Procedure(s): MM tomosynthesis screening BI Accession Number(s): [id number] cc: Elen Mckeon MD EXAMINATION: MM SCREENING [...] 02/25/25 1218 DD/ 0934 TD/TT: 02/18/25 1008 Gas Distribution Supervisor: Elen Mckeon MD IMG BI PROCEDURES Final Result * Bacterial Vaginosis (12/27/2024 9:29 AM EDT) TRICHOMONAS VAGINALIS DETECTION BY PCR NOT DETECTED Not Detect [facility] BACTERIAL VAGINOSIS DETECTION BY PCR NEGATIVE Negative [facility] Comment:The BV organism targ ets [...] DETECTION BY PCR NOT DETECTED Not Detect [facility] Viviana glab krusei PCR NOT DETECTED Not Detect [facility] 12/27/2024 9:29 AM EDT 12/27/2024 11:14 AM EDT Generic External Data Provider LAB MICROBIOLOGY - GENERAL ORDERABLES Final Result [facility] [address] [place] [address] [phone] * HPV mRNA E6/E7 w/Reflex to HPV Genotypes 16, 18/45 (12/14/2022 9:36 AM EDT) HPV nRNA E6/E7 Not Detected Not Detected [facility] Comment:Methodology: Transcr iption-Mediated AmplificationThis assay detects E6/E7 viral messenger RNA (mRNA) from 14high-risk HPV types (16,18,31,33,35,39,45,51,52,56,58,59,66,68).Cervical sources are required for HPV testing.If a vaginal source from a patient who has had atotal hysterectomy with removal of cervix wassubmitted, please contact the testing laboratoryfor alternative testing options.For additional information, please refer tohttp://education.Finsphere/faq/FWS455n6(This link if provided for information/educational purposes only.)THIS TEST WAS PERFORMED AT:[facility] [place] [phone] ALCALA MD HPV mRNA E6/E7 TNP [facility] HPV 16 RNA TNP [facility] HPV 18/45 [facility] 12/14/2022 9:36 AM EDT 12/14/2022 12:15 PM EDT us [facility] External Provider LAB CYT OLOGY ORDERABLES Final Result [facility] [address] [place] [address] [phone] * Pap Smear (12/14/2022 9:36 AM EDT) 12/14/2022 9:36 AM EDT 12/14/2022 12:15 PM EDT Rebekah [facility] - 01/07/2023 8:48 AM EDT ----- ------- Name: Jose Rock Age/Sex: 42/F : 1980 Unit#: [id number] Attend Dr: Tiki Gama CNM Re12/14/22 Status: DEP REF Location: [facility] Disch: ----- ------- SPEC : [id number] RECD: 12/14/22-1215 STATUS: ANA REEliud NUM: [id number] JHOAN: 12/14/[address] [facility] [address]: Tiki Gama CNM ENTERED: 12/14/22-1068 SP TYPE: Pap Smr OTHR DR: Elen Mckeon MD ORDERED: Pap Smear Interpretation Satisfactory for evaluation. Blood. Mild inflammation. Negative for intraepithelial lesion or malignancy. HPV mRNA E6/E7: NOT DETECTED This assay detects E6/E7 viral messenger RNA (mRNA) from 14 high-risk HPV types (16, 18, 31, 33, 35, 39, 45, 51, 52, 56, 58, 59, 66, 68) HPV testing performed by [facility], [place], [place]. See reference laboratory pion of the EMR for entire report. Clinical Information LMP: 12/11/22 Previous PAP test: 2019, WNL Material Received ThinPrep-Cervical Copies To: Tiki Gama [address] [place] [address] [place] [id number] Elen Mckeon MD [address] [place] [address] ----- ------- Signed (signature on file) MARY Vasquez (ASCP) 01/07/23 0848 ----- ------- END OF REPORT [facility] External Provider LAB CYT OLJOANNE ORDERABLES Final Result [facility] [address] [place] [address] [phone] from Last 3 Months or Most Recently Relevant to Health Maintenance Insurance [employer] [facility] PARTIAL (MEDICAID) Care Teams Fx Artist Relationship Specialty Start Date End Date Elen Mckeon MD [address] [place] [phone] PCP - General Family Medicine 10/17/15
--- OUTSIDE RECORDS SUMMARY | 2025-03-28 11:25 | XMS_ITS | Encounter Summary ---
Author Organization [employer] Address [address] [place] [address] 7 [place] [address] Care Team Providers Care Vehicle And Equipment Cleaner Name Role Phone Elen Mckeon MD Primary Care Provider [phone] Encounter Details Date Type Department Care Team ([facility] st Contact Info) Description 06/20/2022 Abstract [facility] [address] [place], [place] [phone] Elen Mckeon MD [address] [place], [place] [phone] Social History Tobacco Use Types Packs/Day Years [...] Description 03/28/2025 11:30 AM EDT Office Visit [facility] [address] [place] [address] Elne Mckeon MD [address] [place] [phone] 04/01/2025 3:00 PM EDT Office Visit [facility] [address] [place] [address] [place] [address] documented as of this encounter Visit Diagnoses Not on filedocumented in this encounter Care Teams Vehicle And Equipment Cleaner Relationship Specialty Start Date End Date Elen Mckeon MD [address] [place] [phone] PCP - General Family Medicine 10/17/15 documented as of this encounter
--- OUTSIDE RECORDS SUMMARY | 2025-03-28 11:25 | XMS_ITS | Encounter Summary ---
Author Organization [employer] Address [address] [facility] 7t [place] [address] Care Team Providers Care Residential Sales Executive Name Role Phone Elen Mckeon MD Primary Care Provider [phone] Encounter Details Date Type Department Care Team (Late st Contact Info) Description 02/27/2025 Telephone [facility] [address] [place], [place] [phone] Sandeep Márquez Social History Tobacco Use Types [...] Description 03/28/2025 11:30 AM EDT Office Visit [facility] [address] [place] [phone] Elen Mckeon MD [address] [place] [phone] 04/01/2025 3:00 PM EDT Office Visit [facility] [address] [place] [address] Elen Mckeon MD [address] [place] [phone] documented as of this encounter Visit Diagnoses Not on filedocumented in this encounter Additional Health Concerns Assessment Noted Time PHQ-9 Depression Total Score: 0 07/16/19 9:55 AM EST documented as of this encounter Care Teams Residential Sales Executive Relationship Specialty Start Date End Date Elen Mckeon MD [address] [place] [phone] PCP - General Family Medicine 10/17/15 documented as of this encounter
--- OUTSIDE RECORDS SUMMARY | 2025-03-28 11:25 | XMS_ITS | Encounter Summary ---
Author Organization [employer] Address [address] [place] [address] [place] [address] Care Team Providers Care Quality Assurance Clerk Name Role Phone Elen Mckeon MD Primary Care Provider Encounter Details Date Type Department Care Team (Late st Contact Info) Description 07/20/2022 Orders Only [facility] [address] [place] [address] [phone] Elen Mckeon MD [address] [place] [address] [phone] Hydrosalpinx (Primary Dx) Social History Tobacco Use [...] Description 03/28/2025 11:30 AM EDT Office Visit [facility] [address] [place] [address] [phone] Elen Mckeon MD [address] [place] [address] [phone] 04/01/2025 3:00 PM EDT Office Visit [facility] [address] [place], [place] [phone] Elen Mckeon MD [address] [place], [place] [phone] documented as of this encounter Visit Diagnoses Diagnosis Hydrosalpinx- Primary Chronic salpingitis and oophoritis documented in this encounter Care Teams Quality Assurance Clerk Relationship Specialty Start Date End Date Elen Mckeon MD [address] [place] [address] [phone] PCP - General Family Medicine 10/17/15 documented as of this encounter
--- OUTSIDE RECORDS SUMMARY | 2025-03-28 11:25 | XMS_ITS | Encounter Summary ---
Author Organization [employer] Address [address] [facility] 7 [place] [address] Care Team Providers Care Assistant Director Of Residence Life Name Role Phone Elen Mckeon MD Primary Care Provider [phone] Encounter Details Date Type Department Care Team (Latest Contact Info) Description 02/25/2025 Results Follow-Up [facility] [address] [place], [place] [phone] Elen Mckeon MD [address] [place], [place] [phone] BI Mammogram Screening Tomosynthesis Bilateral, BI US [...] Description 03/28/2025 11:30 AM EDT Office Visit [facility] [address] [place] [phone] Elen Mckeon MD [address] [place] [address] 04/01/2025 3:00 PM EDT Office Visit [facility] [address] [place] [address] [phone] Elen Mckeon MD [address] [place] [phone] documented as of this encounter Visit Diagnoses Not on filedocumented in this encounter Additional Health Concerns Assessment Noted Time PHQ-9 Depression Total Score: 0 07/16/19 25 9:55 AM EST documented as of this encounter Care Teams Assistant Director Of Residence Life Relationship Specialty Start Date End Date Elen Mckeon MD [address] [place] [address] PCP - General Family Medicine 10/17/15 documented as of this encounter
== END 2025-03-28 10:19 | disposition home or self-care (01) ==
LOC: HO.HGS 09:48
PROVIDERS: PCP Family Medicine; Visit Provider Physician Assistant Surgical
DX: Z90.49 Acquired absence of other specified parts of digestive tract (principal)
CPT/HCPCS: 99024

== ENCOUNTER → 2025-03-28 09:47 | Outpatient (BNVA) | payer OTHER, SELFPAY | PROVIDERS: PCP Family Medicine; Visit Provider Physician Assistant Surgical | DX: Z90.49 Acquired absence of other specified parts of digestive tract (principal) | CPT/HCPCS: 99212 ==

== ENCOUNTER 2025-04-09 09:55 | Outpatient (AMB) | payer OTHER, SELFPAY ==
[2025-04-09 09:58] VITALS: BP 123/57; PULSE 76; BMI 29.0
--- NOTE | 2025-04-09 09:58 | A.OFFVIS_ITS ---
Vital Signs 04/09/25 09:58 Height 5 ft 2 in Weight 158 lb 6.011 oz BMI 29.0 BP 123/57 L Blood Pressure Location Lt brachial Position Sitting Pulse 76 Intake Visit Reasons: s/p kelsea lechuga 03-25-25 Intake Note: Patient s/p kelsea lechuga on 03-25-2025. Patient c/o: reports no complaints. LUCINDA (AT): ARIAN drain removed 03-28-2025. [employer] Manager Required: No Accompanied by: Spouse Allergies No Known Allergies Allergy (Verified 04/09/25 10:04) HPI HPI s/p kelsea lechuga 03-25-25: Details: Reports she is doing well overall. Still having some difficulty with diet. States some foods sit very heavy, and cause her to have a bowel movement shortly thereafter. She has been avoiding heavy lifting. She denies fevers or chills. Denies nausea or vomiting. She has no concerns incision sites, states that after the drain was pulled she had 1 day where there was some blood on the dressing but this has been closed since. She reports he does get some occasional sharp pain at the epigastric port site and the umbilical port site when ambulating. 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 Sexual orientation: Straight/Heterosexual Gender identity: Female Female Reproductive History Menstrual Age of Menarche: 16 Review of Systems Const All systems reviewed & are unremarkable except as noted in HPI and below Physical Exam Vital Signs: Last Vital Signs Pulse 76 04/09/25 09:58 BP 123/57 L 04/09/25 09:58 BMI result Body Mass Index 29.0 Const General: comfortable and no acute distress Orientation/consciousness: patient oriented x3 Resp Effort & Inspection: normal respiratory effort and able to speak in complete sentences GI Other: Incision sites clean dry and intact, port site intact. No surrounding erythema, no gross drainage. No palpable fluid collection Inspection: No distended Palpation (GI): Soft to palpation and nontender Neuro General: patient oriented x3 Assessment & Plan Assessment & Plan (1) S/P laparoscopic cholecystectomy: Code(s): Z90.49 - Acquired absence of other specified parts of digestive tract Category: Medical Plan 44-year-old female s/p laparoscopic cholecystectomy on 03/[address] Sr returning to the office for routine follow up. She was seen on 03/28 for removal of the drain. Overall she is doing okay, still struggling with diet, some foods has been sitting heavy in causing her to have a bowel movement. I reassured her that this is normal at this point as her body addressed, and that this should improve. I did recommend that she try to avoid high fatty foods and processed foods and stick to a low-fat diet to assist with her symptoms. She is agreeable. Additionally she is experiencing some occasional sharp pain with ambulation from the umbilical and epigastric port site. Reassured her that this will improve with time, likely due to the larger trocar used in these areas. She should continue with no heavy lifting, nothing greater than 15-20 lb for the next 2 weeks. On exam the abdomen is soft benign. Incision sites are healing well, no concern for infection at this time drain site also well healed. She will return in 2 weeks for likely final postop visit. Coding Level of Care Code Global (35249) Diagnoses S/P laparoscopic cholecystectomy Z90.49
--- OUTSIDE RECORDS SUMMARY | 2025-04-09 10:55 | XMS_ITS | Encounter Summary ---
Author Organization [employer] Address [address] [facility] 7t [place] [address] Care Team Providers Care Supervisor Enrobing Name Role Phone Elen Mckeon MD Primary Care Provider [phone] Encounter Details Date Type Department Care Team (Late st Contact Info) Description 02/27/2025 Telephone [facility] [address] [place], [place] [phone] Sandeep Márquez Social History Tobacco Use Types [...] documented in this encounter Plan of Treatment Not on file documented as of this encounter Visit Diagnoses Not on filedocumented in this encounter Additional Health Concerns Assessment Noted Time PHQ-9 Depression Total Score: 0 07/16/19 9:55 AM EST documented as of this encounter Care Teams Supervisor Enrobing Relationship Specialty Start Date End Date Elen Mckeon MD [address] [place] [address] PCP - General Family Medicine 10/17/15 [place] 03/28/25 documented as of this encounter
--- OUTSIDE RECORDS SUMMARY | 2025-04-09 10:55 | XMS_ITS | Encounter Summary ---
Author Organization [employer] Address [address] [place] [address] 7 [place] [address] Care Team Providers Care Ship Captain Name Role Phone Elen Mckeon MD Primary Care Provider [phone] Encounter Details Date Type Department Care Team ([facility] st Contact Info) Description 06/20/2022 Abstract [facility] [address] [place], [place] [phone] Elen Mckeon MD [address] [place], [place] [phone] Social History Tobacco Use Types Packs/Day Years [...] as of this encounter Plan of Treatment Not on file documented as of this encounter Visit Diagnoses Not on filedocumented in this encounter Care Teams Ship Captain Relationship Specialty Start Date End Date Elen Mckeon MD [address] [place] [address] PCP - General Family Medicine 10/17/15 [place] 03/28/25 documented as of this encounter
--- OUTSIDE RECORDS SUMMARY | 2025-04-09 10:55 | XMS_ITS | Encounter Summary ---
Author Organization [employer] Address [address] [facility] 7 [place] [address] Care Team Providers Care Drapery Operator Name Role Phone Elen Mckeon MD Primary Care Provider [phone] Encounter Details Date Type Department Care Team (Latest Contact Info) Description 02/25/2025 Results Follow-Up [facility] [address] [place], [place] [phone] Elen Mckeon MD [address] [place], [place] [phone] BI Mammogram Screening Tomosynthesis Bilateral, BI US [...] documented as of this encounter Care Teams Drapery Operator Relationship Specialty Start Date End Date Elen Mckeon MD [address] [place] [phone] PCP - General Family Medicine 10/17/15 [place] 03/28/25 documented as of this encounter
--- OUTSIDE RECORDS SUMMARY | 2025-04-09 10:55 | XMS_ITS | Clinical Summary ---
Author Organization [facility] Address [address] [place] [address] 7t [place] [address] Care Team Providers Care Knocker Out Name Role Phone Elen Mckeon MD Primary Care Provider [phone] Allergies No known active allergies Medications acetaminophen [...] Active Problems Problem Noted Date Diagnosed Date Status post laparoscopic cholecystectomy 025 Assessment & Plan (03/29/2025 11:21 AM EDT): - 03/25/2025 - she states she is having loose stool. Discussed about post-cholecystectomy syndrome. Patient would like to monitor at this time. Will let us know if she is interested in trying cholestyramine. At increased risk for exposure to hepatitis B vi meño 03/29/2025 Assessment & Plan (03/29/2025 11:21 AM EDT): - has Hep B, low viral load Tremor 03/29/2025 Assessment & Plan (03/29/2025 11:20 AM EDT): - check lab - likely related to carpal tunnel syndrome - if lab normal, discuss patient about ortho evaluation (patient previously declined invasive treatment) Chronic midline back pain 07/16/2024 Overweight (BMI 25.0-29.9) 05/04/2024 Assessment & Plan (05/04/2024 5:31 AM EDT): - she has lost weight intentionally by increasing physical activity - continue working on lifestyle modifications - agreed to focus on physical activity, adequate sleep, and healthy diet, rather than weight / numerical value Carpal tunnel syndrome 05/03/2024 Assessment & Plan (03/29/2025 11:19 AM EDT): - right-hand dominant - NCT/EMG in May 2024 showed mild-moderate right medial nerve neuropathy / carpal tunnel syndrome - discussed about treatment options. Patient preferd a conservative management. - recommended wrist brace - refer to ortho for further evaluation and treatment Assessment & Plan (07/21/2024 5:22 AM EST): [...] (05/03/2024 10:02 AM EDT): - Evaluated by [facility] for chronic pelvic pain and hydrosalpinx seen on US in Jun 2022. - Last US in December 2022 showed: Small uterine fibroids. Stable cystic structure in the left adnexa questionable for hydrosalpinx. - Given reassurance Assessment & Plan (07/04/2023 6:04 AM EST): - Evaluated by [facility] for chronic pelvic pain and hydrosalpinx seen [...] (07/04/2023 6:06 AM EST): - evaluated by [facility] - had 3 US studies which show [...] Encounters Date Type Department Care Team Description 03/28/2025 11:30 AM EDT Office Visit [facility] [address] [place] [address] Elen Mckeon MD Tremor (Primary Dx); Acute cholecystitis; Status post laparoscopic cholecystectomy; Leukocytosis, unspecified type; Carpal tunnel syndrome of right wrist; Screening for diabetes mellitus; Screening for lipid disorders; At increased risk for exposure to hepatitis B virus; Numbness and tingling in left hand 03/28/2025 Travel 03/23/2025 Orders Only GENERIC EXTERNAL DATA DEPARTMENT Provider, Generic External Data 02/27/2025 3:30 PM EDT Office Visit [facility] [address] [place] [address] Stephane Whitaker DMD Reversible pulpitis (Primary Dx) 02/27/2025 Travel 02/27/2025 Telephone [facility] [address] [place], [place] [phone] Sandeep Márquez 02/25/2025 Results Follow-Up [facility] [address], [place] [phone] Elen Mckeon MD BI Mammogram Screening Tomosynthesis Bilateral, BI US Breast Limited Left 02/18/2025 Orders Only [facility] [address] [place] [address] Elen Mckeon MD from Last 3 Months Immunizations Immunization Administration [...] Q2 Not on file 07/03/2024 Comments Unknown Intention Date Recorded No desire to become (finding) 0 03/28/2025 Sex and Gender Information Value Date Recorded [...] Date Last Done Comments Disability Screening 1980 HPV Vaccines (1 - 3-dose series) 1997 [...] 02/27/2025 Dental X-Ray: [facility] 02/28/2026 02/28/20, 12/14/2016 Family Planning (PISQ) 03/29/2026 03/29/2025 DTaP/Tdap/Td Vaccines (2 - T d or [...] TOMOSYNTHESIS BILATERAL Routine 02/18/2025 9:34 AM EDT HPV MRNA E6/E7 REFLEX TO [...] Lactic Acid 1.8 0.5 - 2.0 mmol/L [facility] 03/23/2025 3:08 PM EDT 03/23/2025 3:12 PM EDT us Generic External Data Provider LAB BLOOD ORDERAB LES Final Result Performing Organization Address City/State/[facility] Co de Phone Number [facility] [address] [place] [phone] * CT Abdomen Pelvis w/ Contrast (03/23/2025 2:41 PM EDT) Anatomical Region Laterality Modality Body, Pelvis, Abdomen Computed T omography 03/23/2025 2:41 PM EDT Narrative 03/23/2025 2:[address] PM EDT [address] [address] [address] Scan Report Signed with Betsey Patient: Jose Rock MR#: [id number] : 1980 Acct:[id number] Age/Sex: 44 / F ADM Date: 03/23/25 Loc: HO.ED Attending Dr: Ordering Physician: Ana Bianchi Date of Service: 03/23/25 Procedure(s): CT abdomen pelvis w IV con Accession Number(s): [id number] cc: Ana Bianchi; Elen Mckeon MD Report Number: [id number]: Total DLP = 644.00 mGy-cm Reason for [...] by Chris Topete MD in OV> 03/23/25 144 Addendum Cosigned By: DD/ TD/TT: 09/ CLINICAL HISTORY: epigastric pain, white count, vomiting [...] 03/23/25 1442 DD/ 1441 TD/TT: 03/23/25 144 Heating And Ventilating Worker: Procedure Note Donotuseinterpreter, Image - 03/23/[address] [place] [address] [address] Scan Report Signed with Addenda Patient: Nile Rock#: [id number] : 1980Acct:[id number] Age/Sex: 44 / FADM Date: 03/23/25 Loc: HO.ED Attending Dr: Ordering Physician: Ana Bianchi Date of Service: 03/23/25 Procedure(s): CT abdomen pelvis w IV con Accession Number(s): [id number] cc: Ana Bianchi; Elen Mckeon MD Report Number: [id number]: Total DLP = 644.00 mGy-cm Reason for [...] in OV> 03/23/251441 DD/ 40 TD/TT: 03/23/251440 Heating And Ventilating Worker: [facility] External Provider IMG CT PROCEDURES Edited Result - Final * High Sensitivity Troponin I (03/23/2025 9:28 AM EDT) TROPONIN I HIGH SENSITIVITY <2.7 <3.5 - 17.0 ng/L [facility] Comment:The Andrews high sens itivity Troponin-I results should beused in conjunction with other diagnostic information suchas ECG, clinical observations and information, and patientsymptoms to aid in the diagnosis of ME. 03/23/2025 9:28 AM EDT 03/23/2025 9:35 AM EDT us Generic External Data Provider LAB BLOOD ORDERAB LES Final Result [facility] [address] [place] [phone] * (ABNORMAL) CBC auto differential (03/23/2025 8:13 AM EDT) White Blood Count 12.9(H) 4.8 - 10.8 X10*3/uL [facility] Red Blood Count 5.17 4.20 - 5.50 X10*6/uL [facility] Hemoglobin 13.8 12.0 - 16.0 g/dl [facility] Hematocrit 41.4 37.0 - 47.0 % [facility] Mean Corpuscular Volume 80.1 80.0 - 98.0 fL [facility] Mean Corpuscular Hemoglobin 26.7(L) 27.0 - 33.0 pg [facility] Mean Corpuscular HGB Conc 33.3 31.0 - 35.0 g/dl [facility] Red Cell Distribution Width 12.1 11.0 - 16.0 % [facility] Platelet Count 342 160 - 400 X10*3/uL [facility] Mean Platelet Volume 9.5 9.4 - 12.3 fL [facility] Neutrophils Percent Auto 86.9(H) 45 - 73 % [facility] Imm Gran Pct Auto 0.3 0.0 - 0.4 % [facility] Lymphocytes Percent Auto 8.6(L) 20 - 40 % [facility] Monocytes Percent Auto 3.9 2 - 11 % [facility] Eosinophils Percent Auto 0.1 0 - 4 % [facility] Basophils Percent Auto 0.2 0 - 2 % [facility] NRBC Pct Auto 0.0 0.0 - 0.2 /100WBC [facility] Neutrophils Absolute Auto 11.2(H) 2.0 - 8.3 x10*3/uL [facility] Imm Gran Abs Auto 0.04(H) 0.00 - 0.03 X10*3/uL [facility] Lymphocytes Absolute Auto 1.1(L) 1.2 - 4.9 X10*3/uL [facility] Monocytes Absolute Auto 0.5 0.1 - 1.2 X10*3/uL [facility] Eosinophils Absolute Auto 0.0 0.0 - 0.4 X10*3/uL [facility] Basophils Absolute Auto 0.0 0.0 - 0.2 X10*3/uL [facility] NRBC Abs Auto 0.000 0.0 - 0.012 X10*3/uL [facility] 03/23/2025 8:13 AM EDT 03/23/2025 8:28 AM EDT us Generic External Data Provider LAB BLOOD ORDERAB LES Final Result Performing Organization Address City/State/[facility] Co de Phone Number [facility] [address] [place] [phone] * BI US Breast Limited Left (03/08/2025 9:04 AM EDT) Anatomical Region Laterality Modality Breast Left Ultrasound 03/08/2025 9:04 AM EDT Narrative 03/08/2025 10:38 AM EDT [facility] [address] [place] [address] Ultrasound Report Signed Patient: Jose Rock MR#: [id number] : 1980 Acct:[id number] Age/Sex: 44 / F ADM Date: 03/08/25 Loc: HO.MAMMO Attending Dr: Elen Mckeon MD Ordering Physician: Elen Mckeon MD Date of Service: 03/08/25 Procedure(s): US breast LT limited mamm only Accession Number(s): [id number] cc: Elen Mckeon MD EXAMINATIONS: 1. MM [...] at about 8.5 cm from the nipple (/56). Targeted ultrasound was performed at the location [...] 03/08/25 1035 DD/ 0904 TD/TT: 03/08/25 0938 Heating And Ventilating Worker: Procedure Note Donotuseinterpreter, Image - 03/08/2025 [facility] [address] [place] [address] Dr. [place], [place] [address] Ultrasound Report Signed Patient: Nile Rock#: [id number] : 1980Acct:[id number] Age/Sex: 44 / FADM Date: 03/08/25 Loc: HO.MAMMO Attending Dr: Elen Mckeon MD Ordering Physician: Elen Mckeon MD Date of Service: 03/08/25 Procedure(s): US breast LT limited mamm only Accession Number(s): [id number] cc: Elen Mckeon MD EXAMINATIONS: 1. MM [...] at about 8.5 cm from the nipple (izjhcjbh90/56). Targeted ultrasound was performed at the location [...] 03/08/25 1035 DD/ 0904 TD/TT: 03/08/25 0938 Heating And Ventilating Worker: us Elen Mckeon MD IMG US PROCEDURES Edited Result - Final * BI Mammogram Diagnostic Tomosynthesis added left (03/08/2025 8:50 AM EDT) Anatomical Region Laterality Modality Breast Left Mammography 03/08/2025 8:50 AM EDT Narrative 03/08/2025 10:38 AM EDT [facility] [address] [place], [place] [address] Mammography Report Signed Patient: Jose Rock MR#: [id number] : 1980 Acct:[id number] Age/Sex: 44 / F ADM Date: 03/08/25 Loc: HO.MAMMO Attending Dr: Elen Mckeon MD Ordering Physician: Elen Mckeon MD Results: 3.6MProba annabella Benign Finding - Short 6 M F/U Suggested Date of Service: 03/08/25 Follow Up: 6 Month F/U Procedure(s): MM tomosynthesis added views L Accession Number(s): [id number] cc: Elen Mckeon MD EXAMINATIONS: 1. MM [...] at about 8.5 cm from the nipple (jonuyukb37/56). Targeted ultrasound was performed at the location [...] 03/08/25 1035 DD/ 0850 TD/TT: 03/08/25 0905 Heating And Ventilating Worker: Procedure Note Donotuseinterpreter, Image - 03/08/2025 [facility] [address] [place] [address] Mammography Report Signed Patient: Nile Rock#: [id number] : 1980Acct:[id number] Age/Sex: 44 / FADM Date: 03/08/25 Loc: HO.MAMMO Attending Dr: Elen Mckeon MD Ordering Physician: Elen Mckeon MDResults: 3.6MProba annabella Benign Finding - Short 6 M F/U Suggested Date of Service: 03/08/25Follow Up: 6 Month F/U Procedure(s): MM tomosynthesis added views L Accession Number(s): [id number] cc: Elen Mckeon MD EXAMINATIONS: 1. MM [...] at about 8.5 cm from the nipple (krsqimpj02/56). Targeted ultrasound was performed at the location [...] 03/08/25 1035 DD/ 0850 TD/TT: 03/08/25 0905 Heating And Ventilating Worker: Elen Mckeon MD IMG BI PROCEDURES Edited Result - Final * BI Mammogram Screening Tomosynthesis Bilateral (02/18/2025 9:34 AM EDT) Anatomical Region Laterality Modality Breast Bilateral Mammography 02/18/2025 9:34 AM EDT Narrative 02/25/2025 12:21 PM EDT [facility] [address] [place] [address] Mammography Report Signed Patient: Jose Rock MR#: [id number] : 1980 Acct:[id number] Age/Sex: 44 / F ADM Date: 02/18/25 Loc: HO.MAMMO Attending Dr: Elen Mckeon MD Ordering Physician: Elen Mckeon MD Results: 0Incomple te: Needs Additional Imaging Evaluation Date of Service: 02/18/25 Follow Up: Additional Imagi ng Procedure(s): MM tomosynthesis screening BI Accession Number(s): [id number] cc: Elen Mckeon MD EXAMINATION: MM SCREENING [...] 02/25/25 1218 DD/ 0934 TD/TT: 02/18/25 1008 Heating And Ventilating Worker: Procedure Note Donotmariannainterpreter, Image - 02/25/2025 [facility] [address] [place], [place] [address] Mammography Report Signed Patient: Nile Rock#: [id number] : 1980Acct:[id number] Age/Sex: 44 / FADM Date: 02/18/25 Loc: HO.MAMMO Attending Dr: Elen Mckeon MD Ordering Physician: Elen Mckeon MDResults: 0Incomple te: Needs Additional Imaging Evaluation Date of Service: 02/18/25Follow Up: Additional Imagi ng Procedure(s): MM tomosynthesis screening BI Accession Number(s): [id number] cc: Elen Mckeon MD EXAMINATION: MM SCREENING [...] 02/25/25 1218 DD/ 0934 TD/TT: 02/18/25 1008 Heating And Ventilating Worker: Elen Mckeon MD IMG BI PROCEDURES Final Result * HPV mRNA E6/E7 w/Reflex to HPV Genotypes 16, 18/45 (12/14/2022 9:36 AM EDT) HPV nRNA E6/E7 Not Detected Not Detected [facility] Comment:Methodology: Transcr iption-Mediated AmplificationThis assay detects E6/E7 viral messenger RNA (mRNA) from 14high-risk HPV types (16,18,31,33,35,39,45,51,52,56,58,59,66,68).Cervical sources are required for HPV testing.If a vaginal source from a patient who has had atotal hysterectomy with removal of cervix wassubmitted, please contact the testing laboratoryfor alternative testing options.For additional information, please refer tohttp://education.[employer]/faq/UBO125u1(This link if provided for information/educational purposes only.)THIS TEST WAS PERFORMED AT:[employer] [place] [phone] ALCALA MD HPV mRNA E6/E7 TNP [facility] HPV 16 RNA [facility] HPV 18/45 RNA [facility] 12/14/2022 9:36 AM EDT 12/14/2022 12:15 PM EDT [facility] External Provider LAB CYT OLOGY ORDERABLES Final Result [facility] [address] [place] [phone] * Pap Smear (12/14/2022 9:36 AM EDT) 12/14/2022 9:36 AM EDT 12/14/2022 12:15 PM EDT [facility] - 01/07/2023 8:48 AM EDT ----- ------- Name: Jose Rock Age/Sex: 42/F : 1980 Unit#: [id number] Attend Dr: Tiki Gama CNM Re12/14/22 Status: DEP [facility] ----- ------- SPEC : [id number] RECD: 12/14/22-1215 STATUS: ANA OROZCO NUM: [id number] JHOAN: 12/14/[address] [facility] [address]: Tiki Gama CNM ENTERED: 12/14/22-1256 SP TYPE: Pap [facility] DR: Elen Mckeon MD ORDERED: Pap Smear Interpretation Satisfactory for evaluation. Blood. Mild inflammation. Negative for intraepithelial lesion or malignancy. HPV mRNA E6/E7: NOT DETECTED This assay detects E6/E7 viral messenger RNA (mRNA) from 14 high-risk HPV types (16, 18, 31, 33, 35, 39, 45, 51, 52, 56, 58, 59, 66, 68) HPV testing performed by [employer], [place], [place]. See reference laboratory pion of the EMR for entire report. Clinical Information LMP: 12/11/22 Previous PAP test: 2019, WNL Material Received ThinPrep-Cervical Copies To: Tiki Gama CNM [address] [place] [address] Dr. Lawrence Dunbar [place] [address] Elen Mckeon MD [address] [place] [address] ----- ------- Signed (signature on file) MARY Vasquez ([facility]) 01/07/23 0848 ----- ------- END OF REPORT [facility] External Provider LAB CYT [facility] ORDERABLES Final Result [facility] [address] [place] [phone] [phone] from Last 3 Months or Most Recently Relevant to Health Maintenance Insurance [facility] - [facility] PARTIAL (MEDICAID) Care Teams Knocker Out Relationship Specialty Start Date End Date Elen Mckeon MD [address] [place] [phone] PCP - General Family Medicine [facility]
--- OUTSIDE RECORDS SUMMARY | 2025-04-09 10:55 | XMS_ITS | Encounter Summary ---
Author Organization [employer] Address [address] [place] [address] 7 [place] [address] Care Team Providers Care Hvac Project Engineer Name Role Phone Elen Mckeon MD Primary Care Provider [phone] Encounter Details Date Type Department Care Team ([facility] st Contact Info) Description 07/20/2022 Orders Only [facility] [address] [place], [place] [phone] Elen Mckeon MD [address] [place], [place] [phone] Hydrosalpinx (Primary Dx) Social History Tobacco Use [...] oophoritis documented in this encounter Care Teams Hvac Project Engineer Relationship Specialty Start Date End Date Elen Mckeon MD [address] [place], [place] [phone] PCP - General Family Medicine 10/17/15 [place] [facility] 03/28/25 documented as of this encounter
== END 2025-04-09 10:11 | disposition home or self-care (01) ==
LOC: HO.HGS 09:55
PROVIDERS: PCP Family Medicine
DX: Z90.49 Acquired absence of other specified parts of digestive tract (principal)
CPT/HCPCS: 99024

== ENCOUNTER → 2025-04-09 09:55 | Outpatient (BNVA) | payer OTHER, SELFPAY | PROVIDERS: PCP Family Medicine | DX: Z98.890 Other specified postprocedural states (principal); Z90.49 Acquired absence of other specified parts of digestive tract | CPT/HCPCS: 99212 ==

== ENCOUNTER 2025-05-01 08:50 | Outpatient (AMB) | payer OTHER, SELFPAY ==
--- NOTE | 2025-05-01 08:57 | MHC.OFFVIS ---
Vital Signs 05/01/25 08:58 Height 5 ft 2 in Weight 155 lb BMI 28.3 BP 116/62 Blood Pressure Location Rt brachial Position Sitting Pulse 92 Intake Visit Reasons: 2 week follow up s/p kelsea lechuga 03-25-25 Intake Note: Patient here for 3wk follow up last visit. Patient c/o: no concerns. Reports incisions healed well. No longer taking rx pain meds. Surgery ()- 03-25-2025 Laparoscopic cholecystectomy with difficult dissection in view of severely inflamed and indurated gallbladder. Clinical Data Assistant Required: No Accompanied by: Spouse Allergies No Known Allergies Allergy (Verified 05/01/25 08:58) HPI HPI 2 week follow up s/p kelsea lechuga 03-25-25: Details: Overall doing well. Presents with . The pain she was experiencing at last visit is improving, she still gets some occasional discomfort with motion psych reaching overhead or doing work around the house. Her previous issues with diet are also improving, she is learning what food she can tolerate. She has begun resuming activity, since this is overall going well but as mentioned above some discomfort with certain movements. Additionally she gets some pain if she touches the epigastric port site. Denies drainage, redness, swelling the area. 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 Sexual orientation: Straight/Heterosexual Gender identity: Female Female Reproductive History Menstrual Age of Menarche: 16 Physical Exam Vital Signs: Last Vital Signs Pulse 92 05/01/25 08:58 BP 116/62 05/01/25 08:58 BMI result Body Mass Index 28.3 Const General: comfortable and no acute distress Orientation/consciousness: patient oriented x3 Resp Effort & Inspection: normal respiratory effort and able to speak in complete sentences GI Palpation (GI): Soft to palpation and Tenderness to palpation present (GI) (Mild tenderness at epigastric port site) Neuro General: patient oriented x3 Assessment & Plan Assessment & Plan (1) S/P laparoscopic cholecystectomy: Code(s): Z90.49 - Acquired absence of other specified parts of digestive tract Category: Surgical Plan 44-year-old female s/p laparoscopic cholecystectomy on 03/[address] Sr returning to the office for routine follow up. She was seen on 03/28 for removal of the drain. Overall she is doing okay, diet has improved she is still finding some foods do not sit right but is tailoring her diet around this. I did recommend that she try to avoid high fatty foods and processed foods and stick to a low-fat diet to assist with her symptoms. She is agreeable. Additionally she is experiencing some occasional sharp pain with ambulation from the umbilical and epigastric port site especially with activities that involve overhead use of her arms. Reassured her that this will improve with time, likely due to the larger trocar used in these areas. At this point can remove restrictions, recommended she increase activity as tolerated. Reassured her that there may be some pain associated with this but this is likely muscular in nature and will improve with time as she slowly increase his ambulation. On exam the abdomen is soft benign. Incision sites are healing well, no concern for infection at this time drain site also well healed. At this point no longer requiring routine follow up, can return as needed with any concerns in the future. Coding Level of Care Code Global (17811) Diagnoses S/P laparoscopic cholecystectomy Z90.49
[2025-05-01 08:58] VITALS: BP 116/62; PULSE 92; BMI 28.3
== END 2025-05-01 09:10 | disposition home or self-care (01) ==
LOC: HO.HGS 08:51
PROVIDERS: PCP Family Medicine
DX: Z90.49 Acquired absence of other specified parts of digestive tract (principal)
CPT/HCPCS: 99024

== ENCOUNTER → 2025-05-01 08:50 | Outpatient (BNVA) | payer OTHER, SELFPAY | PROVIDERS: PCP Family Medicine | DX: R10.33 Periumbilical pain (principal); R19.33 Right lower quadrant abdominal rigidity; Z98.890 Other specified postprocedural states; Z90.49 Acquired absence of other specified parts of digestive tract | CPT/HCPCS: 99212 ==

== ENCOUNTER 2025-05-08 09:26 | Outpatient (REF) | payer OTHER, SELFPAY ==
--- NOTE | 2025-05-08 | EMG_ITS ---
Chief complaint:?R20.0 Anesthesia of skin R20.2 Paresthesia of skin Reason for referral: Left hand numbness and tingling Referred by:?Elen Mckeon MD Procedure done: Left upper extremity NCS/EMG Left median and ulnar motor and sensory studies were performed. Left median and lateral antecubital brachial and radial sensory studies were performed an EMG needle examination was performed. Findings: No abnormal parameters were noted on this study. Impression: This is an unremarkable study with no evidence of median or ulnar neuropathy or a proximal lesion. [place] [address] 1 extremity MTDD
--- OUTSIDE RECORDS SUMMARY | 2025-05-08 11:00 | XMS_ITS | Encounter Summary ---
Author Organization [employer] Address [address] [facility] 7t [place] [address] Care Team Providers Care Ambulance Assistant Name Role Phone Elen Mckeon MD Primary Care Provider [phone] Encounter Details Date Type Department Care Team (Late st Contact Info) Description 02/27/2025 Telephone [facility] [address] [place], [place] [phone] Sandeep Márquez Social History Tobacco Use Types [...] documented as of this encounter Care Teams Ambulance Assistant Relationship Specialty Start Date End Date Elen Mckeon MD [address] [place] [address] PCP - General Family Medicine 10/17/15 [place] [facility] 03/28/25 documented as of this encounter
--- OUTSIDE RECORDS SUMMARY | 2025-05-08 11:00 | XMS_ITS | Encounter Summary ---
Author Organization [employer] Address [address] [place] [address] [address] [place] [address] Care Team Providers Care Ski Topper Name Role Phone Elen Mckeon MD Primary Care Provider [phone] Encounter Details Date Type Department Care Team ([facility] st Contact Info) Description 06/20/2022 Abstract [facility] [address] [place], [place] [phone] Elen Mckeon MD [address] [place], [place] [phone] Social History Tobacco Use Types Packs/Day Years [...] on filedocumented in this encounter Care Teams Ski Topper Relationship Specialty Start Date End Date Elen Mckeon MD [address] [place] [address] PCP - General Family Medicine 10/17/15 [place] 03/28/25 documented as of this encounter
--- OUTSIDE RECORDS SUMMARY | 2025-05-08 11:00 | XMS_ITS | Encounter Summary ---
Author Organization [employer] Address [address] [place] [address] 7 [place] [address] Care Team Providers Care Control Equipment Electrician Name Role Phone Elen Mckeon MD Primary Care Provider [phone] Encounter Details Date Type Department Care Team ([facility] st Contact Info) Description 07/20/2022 Orders Only [facility] [address] [place], [place] [phone] Elen Mckeon MD [address] [place], [place] [phone] Hydrosalpinx (Primary Dx) Social History Tobacco Use [...] oophoritis documented in this encounter Care Teams Control Equipment Electrician Relationship Specialty Start Date End Date Elen Mckeon MD [address] [place], [place] [phone] PCP - General Family Medicine 10/17/15 [place] 03/28/25 documented as of this encounter
--- OUTSIDE RECORDS SUMMARY | 2025-05-08 11:00 | XMS_ITS | Clinical Summary ---
Author Organization [email or web address] Address [address] [place] [address] 7t [place] [address] Care Team Providers Care Firewall Engineer Name Role Phone Elen Mckeon MD Primary Care Provider [phone] Allergies No known active allergies Medications acetaminophen [...] 10:02 AM EDT): - Evaluated by C AUDIENCE COORDINATOR for chronic pelvic pain and hydrosalpinx seen on US in Jun 2022. - Last US in December 2022 showed: Small uterine fibroids. Stable cystic structure in the left adnexa questionable for hydrosalpinx. - Given reassurance Assessment & Plan (07/04/2023 6:04 AM EST): - Evaluated by C AUDIENCE COORDINATOR for chronic pelvic pain and hydrosalpinx seen [...] (07/04/2023 6:06 AM EST): - evaluated by [facility] AUDIENCE COORDINATOR - had 3 US studies which show [...] Description 03/28/2025 11:30 AM EDT Office Visit [facility] [address] [place] [address] Elen Mckeon MD Tremor (Primary Dx); Acute cholecystitis; Status post laparoscopic cholecystectomy; Leukocytosis, unspecified type; Carpal tunnel syndrome of right wrist; Screening for diabetes mellitus; Screening for lipid disorders; At increased risk for exposure to hepatitis B virus; Numbness and tingling in left hand 03/28/2025 Travel 03/23/2025 Orders Only GENERIC EXTERNAL DATA DEPARTMENT Provider, Generic External Data 02/27/2025 3:30 PM EDT Office Visit [facility] [address] [place] [address] Stephane Whitaker DMD Reversible pulpitis (Primary Dx) 02/27/2025 Travel 02/27/2025 Telephone [facility] [address] [place], [place] [phone] Sandeep Márquez 02/25/2025 Results Follow-Up [facility] [address] [place], [place] [phone] Elen Mckeon MD BI Mammogram Screening Tomosynthesis Bilateral, BI US Breast Limited Left 02/18/2025 Orders Only [facility] [address] [place] [address] Elen Mckeon MD from Last 3 Months [...] Lactic Acid 1.8 0.5 - 2.0 mmol/L [facility] 03/23/2025 3:08 PM EDT 03/23/2025 3:12 PM EDT us Generic External Data Provider LAB BLOOD ORDERAB LES Final Result Performing Organization Address City/State/RUST Co de Phone Number [facility] [address] [place] [phone] * CT Abdomen Pelvis w/ Contrast (03/23/2025 2:41 PM EDT) Anatomical Region Laterality Modality Body, Pelvis, Abdomen Computed T omography 03/23/2025 2:41 PM EDT Narrative 03/23/2025 2:43 PM EDT [address] [address] [address] Scan Report Signed with Betsey Patient: Jose Rock MR#: [id number] : 1980 Acct:[id number] Age/Sex: 44 / F ADM Date: 03/23/25 Loc: HO.ED Attending Dr: Ordering Physician: Ana Bianchi Date of Service: 03/23/25 Procedure(s): CT abdomen pelvis w IV con Accession Number(s): [id number] cc: Ana Bianchi; Elen Mckeon MD Report Number: [id number]: Total DLP = 644.00 mGy-cm Reason for [...] 03/23/25 1442 DD/ 1441 TD/TT: 03/23/25 144 Marking Machine Tender: Procedure Note Donotuseinterpreter, Image - 03/23/[address] [place] [address] [address] Scan Report Signed with Addenda Patient: Nile Rock#: [id number] : 1980Acct:[id number] Age/Sex: 44 / FADM Date: 03/23/25 Loc: HO.ED Attending Dr: Ordering Physician: Ana Bianchi Date of Service: 03/23/25 Procedure(s): CT abdomen pelvis w IV con Accession Number(s): [id number] cc: Ana Bianchi; Elen Mckeon MD Report Number: [id number]: Total DLP = 644.00 mGy-cm Reason for [...] in OV> 03/23/251441 DD/ 40 TD/TT: 03/23/251440 Marking Machine Tender: [facility] External Provider IMG CT PROCEDURES Edited Result - Final * High Sensitivity Troponin I (03/23/2025 9:28 AM EDT) TROPONIN I HIGH SENSITIVITY <2.7 <3.5 - 17.0 ng/L [facility] Comment:The Andrews high sens itivity Troponin-I results should beused in conjunction with other diagnostic information suchas ECG, clinical observations and information, and patientsymptoms to aid in the diagnosis of MO. 03/23/2025 9:28 AM EDT 03/23/2025 9:35 AM EDT us Generic External Data Provider LAB BLOOD ORDERAB LES Final Result [facility] [address] [place] [phone] [phone] * (ABNORMAL) CBC auto differential (03/23/2025 8:13 AM EDT) White Blood Count 12.9(H) 4.8 - 10.8 X10*3/uL [facility] Red Blood Count 5.17 4.20 - 5.50 X10*6/uL [facility] Hemoglobin 13.8 12.0 - 16.0 g/dl [facility] Hematocrit 41.4 37.0 - 47.0 % [facility] Mean Corpuscular Volume 80.1 80.0 - 98.0 fL [facility] Mean Corpuscular Hemoglobin 26.7(L) 27.0 - 33.0 pg [facility] Mean Corpuscular HGB Conc 33.3 31.0 - 35.0 g/dl [facility] Red Cell Distribution Width 12.1 11.0 - 16.0 % [facility] Platelet Count 342 160 - 400 X10*3/uL [facility] Mean Platelet Volume 9.5 9.4 - 12.3 fL [facility] Neutrophils Percent Auto 86.9(H) 45 - 73 % [facility] Imm Gran Pct Auto 0.3 0.0 - 0.4 % [facility] Lymphocytes Percent Auto 8.6(L) 20 - 40 % [facility] Monocytes Percent Auto 3.9 2 - 11 % [facility] Eosinophils Percent Auto 0.1 0 - 4 % [facility] Basophils Percent Auto 0.2 0 - 2 % [facility] NRBC Pct Auto 0.0 0.0 - 0.2 /100WBC [facility] Neutrophils Absolute Auto 11.2(H) 2.0 - 8.3 x10*3/uL [facility] Imm Gran Abs Auto 0.04(H) 0.00 - 0.03 X10*3/uL [facility] Lymphocytes Absolute Auto 1.1(L) 1.2 - 4.9 X10*3/uL [facility] Monocytes Absolute Auto 0.5 0.1 - 1.2 X10*3/uL [facility] Eosinophils Absolute Auto 0.0 0.0 - 0.4 X10*3/uL [facility] Basophils Absolute Auto 0.0 0.0 - 0.2 X10*3/uL [facility] NRBC Abs Auto 0.000 0.0 - 0.012 X10*3/uL [facility] 03/23/2025 8:13 AM EDT 03/23/2025 8:28 AM EDT us Generic External Data Provider LAB BLOOD ORDERAB LES Final Result Performing Organization Address City/State/RUST Co de Phone Number [facility] [address] [place] [phone] * BI US Breast Limited Left (03/08/2025 9:04 AM EDT) Anatomical Region Laterality Modality Breast Left Ultrasound 03/08/2025 9:04 AM EDT Narrative 03/08/2025 10:38 AM EDT [facility] [address] [place] [address] Ultrasound Report Signed Patient: Jose Rock MR#: [id number] : 1980 Acct:[id number] Age/Sex: 44 / F ADM Date: 03/08/25 Loc: HO.MAMMO Attending Dr: Elen Mckeon MD Ordering Physician: Elen Mckeon MD Date of Service: 03/08/25 Procedure(s): US breast LT limited mamm only Accession Number(s): [id number] cc: Elen Mckeon MD EXAMINATIONS: 1. MM [...] 03/08/25 1035 DD/ 0904 TD/TT: 03/08/25 0938 Marking Machine Tender: Procedure Note Donotuseinterpreter, Image - 03/08/2025 [facility] [address] [place] [address] Dr[address] [place], [place] [address] Ultrasound Report Signed Patient: Nile Rock#: [id number] : 1980Acct:[id number] Age/Sex: 44 / FADM Date: 03/08/25 Loc: HO.MAMMO Attending Dr: Elen Mckeon MD Ordering Physician: Elen Mckeon MD Date of Service: 03/08/25 Procedure(s): US breast LT limited mamm only Accession Number(s): [id number] cc: Elen Mckeon MD EXAMINATIONS: 1. MM [...] at about 8.5 cm from the nipple (yhcdvvzf63/56). Targeted ultrasound was performed at the location [...] 03/08/25 1035 DD/ 0904 TD/TT: 03/08/25 0938 Marking Machine Tender: us Elen Mckeon MD IMG US PROCEDURES Edited Result - Final * BI Mammogram Diagnostic Tomosynthesis added left (03/08/2025 8:50 AM EDT) Anatomical Region Laterality Modality Breast Left Mammography 03/08/2025 8:50 AM EDT Narrative 03/08/2025 10:38 AM EDT [facility] [address] [place], [place] [address] Mammography Report Signed Patient: Jose Rock MR#: [id number] : 1980 Acct:[id number] Age/Sex: 44 / F ADM Date: 03/08/25 Loc: HO.MAMMO Attending Dr: Elen Mckeon MD Ordering Physician: Elen Mckeon MD Results: 3.6MProba annabella Benign Finding - Short 6 M F/U Suggested Date of Service: 03/08/25 Follow Up: 6 Month F/U Procedure(s): MM tomosynthesis added views L Accession Number(s): [id number] cc: Elen Mckeon MD EXAMINATIONS: 1. MM [...] at about 8.5 cm from the nipple (wknxkyff09/56). Targeted ultrasound was performed at the location [...] 03/08/25 1035 DD/ 0850 TD/TT: 03/08/25 0905 Marking Machine Tender: Procedure Note Donotuseinterpreter, Image - 03/08/2025 [facility] [address] [place] [address] Mammography Report Signed Patient: Nile Rock#: [id number] : 1980Acct:[id number] Age/Sex: 44 / FADM Date: 03/08/25 Loc: HO.MAMMO Attending Dr: Elen Mckeon MD Ordering Physician: Elen Mckeon MDResults: 3.6MProba annabella Benign Finding - Short 6 M F/U Suggested Date of Service: 03/08/25Follow Up: 6 Month F/U Procedure(s): MM tomosynthesis added views L Accession Number(s): [id number] cc: Elen Mckeon MD EXAMINATIONS: 1. MM [...] at about 8.5 cm from the nipple (apiiuacd01/56). Targeted ultrasound was performed at the location [...] 03/08/25 1035 DD/ 0850 TD/TT: 03/08/25 0905 Marking Machine Tender: Elen Mckeon MD IMG BI PROCEDURES Edited Result - Final * BI Mammogram Screening Tomosynthesis Bilateral (02/18/2025 9:34 AM EDT) Anatomical Region Laterality Modality Breast Bilateral Mammography 02/18/2025 9:34 AM EDT Narrative 02/25/2025 12:21 PM EDT [facility] [address] [place] [address] Mammography Report Signed Patient: Jose Rock MR#: [id number] : 1980 Acct:[id number] Age/Sex: 44 / F ADM Date: 02/18/25 Loc: HO.MAMMO Attending Dr: Elen Mckeon MD Ordering Physician: Elen Mckeon MD Results: 0Incomple te: Needs Additional Imaging Evaluation Date of Service: 02/18/25 Follow Up: Additional Imagi ng Procedure(s): MM tomosynthesis screening BI Accession Number(s): [id number] cc: Elen Mckeon MD EXAMINATION: MM SCREENING [...] 02/25/25 1218 DD/ 0934 TD/TT: 02/18/25 1008 Marking Machine Tender: Procedure Note Donotmariannainterpreter, Image - 02/25/2025 [facility] [address] [place], [place] [address] Mammography Report Signed Patient: Nile Rock#: [id number] : 1980Acct:[id number] Age/Sex: 44 / FADM Date: 02/18/25 Loc: HO.MAMMO Attending Dr: Elen Mckeon MD Ordering Physician: Elen Mckeon MDResults: 0Incomple te: Needs Additional Imaging Evaluation Date of Service: 02/18/25Follow Up: Additional Imagi ng Procedure(s): MM tomosynthesis screening BI Accession Number(s): [id number] cc: Elen Mckeon MD EXAMINATION: MM SCREENING [...] 02/25/25 1218 DD/ 0934 TD/TT: 02/18/25 1008 Marking Machine Tender: Elen Mckeon MD IMG BI PROCEDURES Final Result * HPV mRNA E6/E7 w/Reflex to HPV Genotypes 16, 18/45 (12/14/2022 9:36 AM EDT) HPV nRNA E6/E7 Not Detected Not Detected [facility] Comment:Methodology: Transcr iption-Mediated AmplificationThis assay detects E6/E7 viral messenger RNA (mRNA) from 14high-risk HPV types (16,18,31,33,35,39,45,51,52,56,58,59,66,68).Cervical sources are required for HPV testing.If a vaginal source from a patient who has had atotal hysterectomy with removal of cervix wassubmitted, please contact the testing laboratoryfor alternative testing options.For additional information, please refer [email or web address](This link if provided for information/educational purposes only.)THIS TEST WAS PERFORMED AT:[email or web address] [place] [phone] ALCALA MD HPV mRNA E6/E7 TNP [facility] HPV 16 RNA [facility] HPV 18/45 RNA [facility] 12/14/2022 9:36 AM EDT 12/14/2022 12:15 PM EDT [facility] External Provider LAB CYT OLOGY ORDERABLES Final Result [facility] [address] [place] [phone] * Pap Smear (12/14/2022 9:36 AM EDT) 12/14/2022 9:36 AM EDT 12/14/2022 12:15 PM EDT [facility] - 01/07/2023 8:48 AM EDT ----- ------- Name: Jose oRck Age/Sex: 42/F : 1980 Unit#: [id number] Attend Dr: Tiki Gama CNM Re12/14/22 Status: DEP [facility] Disch: ----- ------- SPEC : [id number] RECD: 12/14/22-1215 STATUS: ANA OROZCO NUM: [id number] JHOAN: 12/14/2236 [facility] DR: Tiki Gama CNM ENTERED: 12/14/22-1256 SP TYPE: Pap [facility] DR: Elen Mckeon MD ORDERED: Pap Smear Interpretation Satisfactory for evaluation. Blood. Mild inflammation. Negative for intraepithelial lesion or malignancy. HPV mRNA E6/E7: NOT DETECTED This assay detects E6/E7 viral messenger RNA (mRNA) from 14 high-risk HPV types (16, 18, 31, 33, 35, 39, 45, 51, 52, 56, 58, 59, 66, 68) HPV testing performed by [employer], [place], [place]. See reference laboratory pion of the EMR for entire report. Clinical Information LMP: 12/11/22 Previous PAP test: 2019, WNL Material Received ThinPrep-Cervical Copies To: Tiki Gama CNM [address] [place] [address] Dr. Lawrence Dunbar [place] [address] Elen Mckeon MD [address] [place] [address] ----- ------- Signed (signature on file) MARY Vasquez ([facility]) 01/07/23 0848 ----- ------- END OF REPORT [facility] External Provider LAB CYT [facility] ORDERABLES Final Result [facility] [address] [place] [address] [phone] from Last 3 Months or Most Recently Relevant to Health Maintenance Insurance [facility] PARTIAL (MEDICAID) Care Teams Firewall Engineer Relationship Specialty Start Date End Date Elen Mckeon MD [address] [place] [phone] PCP - General Family [facility]
== END 2025-05-08 09:27 | disposition home or self-care (01) ==
LOC: HO.NEURO 09:26
PROVIDERS: PCP Family Medicine; Visit Provider Family Medicine
DX: R20.0 Anesthesia of skin (principal); R20.2 Paresthesia of skin
CPT/HCPCS: 95886; 95911

== ENCOUNTER → 2025-05-08 10:00 | Outpatient (BNV) | payer OTHER, SELFPAY | PROVIDERS: PCP Family Medicine; Visit Provider Psychiatry & Neurology Neurology | DX: R20.0 Anesthesia of skin (principal); R20.2 Paresthesia of skin | CPT/HCPCS: 95886; 95911 ==